=== PATIENT | male | born 1930 | race Caucasian/White ===

== ENCOUNTER 2017-10-01 08:35 | Emergency (ER) | payer OTHER, MEDICARE ==
--- NOTE | 2017-10-01 09:02 | ED ---
General Adult HPI - General Chief complaint: Urogenital Stated complaint: Blood in urine Time Seen by Provider: 10/01/17 08:55 Source: patient, RN notes reviewed Mode of arrival: wheelchair Limitations: no limitations - History of Present Illness Initial comments: Patient is an 87-year-old male who presents emergency room today with a chief complaint of hematuria. He does admit that he has seen signs of blood in his urine off and on since Thanksgiving of this past year. Patient states that he felt that he swallowed but more blood this morning and they were concerned. He denies any pain. He does admit that he is on Coumadin due to stents a pacemaker. Patient states he has been following up has had a previous surgery on the prostate in the past. States he is scheduled for an ultrasound tomorrow. Patient denies any recent fever, chills, shortness of breath, chest pain, back pain, abdominal pain, nausea or vomiting, numbness or tingling, dysuria, constipation or diarrhea, headaches or visual changes, or any other complaints. - Related Data Home Medications Medication Instructions Recorded Confirmed Aspirin 81 mg PO DAILY 05/25/14 10/01/17 Atenolol [Tenormin] 25 mg PO BID 05/25/14 10/01/17 Isosorbide Dinitrate 30 mg PO DAILY 05/25/14 10/01/17 Warfarin [Coumadin] 2.5 mg PO HS 05/25/14 10/01/17 Ferrous Gluconate 324 mg PO DAILY 10/01/17 10/01/17 Furosemide [Lasix] 40 mg PO BID 10/01/17 10/01/17 Lisinopril [Zestril] 2.5 mg PO DAILY 10/01/17 10/01/17 Nitroglycerin Sl Tabs [Nitrostat] 0.4 mg SUBLINGUAL Q5M PRN 10/01/17 10/01/17 Pravastatin Sodium [Pravachol] 40 mg PO HS 10/01/17 10/01/17 Previous Rx's Medication Instructions Recorded Ciprofloxacin HCl [Cipro] 500 mg PO Q12HR #14 day 10/01/17 Allergies Allergy/AdvReac Type Severity Reaction Status Date / Time acetaminophen [From Tylenol] Allergy Rash/Hives Verified 10/01/17 09:28 meperidine HCl [From Demerol] AdvReac Unknown Verified 10/01/17 09:28 Review of Systems ROS Statement: Those systems with pertinent positive or pertinent negative responses have been documented in the HPI. ROS Other: All systems not noted in ROS Statement are negative. Past Medical History Past Medical History: Myocardial Infarction ([place]), Prostate Disorder Additional Past Medical History / Comment(s): heart disease History of Any Multi-Drug Resistant Organisms: None Reported Past Surgical History: Pacemaker, Prostate Surgery Additional Past Surgical History / Comment(s): defibrillator Past Psychological History: No Psychological Hx Reported Smoking Status: Former smoker Past Alcohol Use History: None Reported Past Drug Use History: None Reported General Exam - General Exam Comments Initial Comments: General: The patient is awake and alert, in no distress, and does not appear acutely ill. Eye: Pupils are equal, round and reactive to light, extra-ocular movements are intact. No nystagmus. There is normal conjunctiva bilaterally. No signs of icterus. Ears, nose, mouth and throat: There are moist mucous membranes and no oral lesions. Neck: The neck is supple, there is no tenderness or JVD. Cardiovascular: There is a regular rate and rhythm. No murmur, rub or gallop is appreciated. Respiratory: Lungs are clear to auscultation, respirations are non-labored, breath sounds are equal. No wheezes, stridor, rales, or rhonchi. Gastrointestinal: Soft, non-distended, non-tender abdomen without masses or organomegaly noted. There is no rebound or guarding present. No CVA tenderness. Musculoskeletal: Normal ROM, no tenderness. Strength 5/5. Sensation intact. Pulses equal bilaterally 2+. Neurological: A&O x 3. CN II-XII intact, There are no obvious motor or sensory deficits. Coordination appears grossly intact. Speech is normal. Skin: Skin is warm and dry and no rashes or lesions are noted. Psychiatric: Cooperative, appropriate mood & affect, normal judgment. Limitations: no limitations Course Vital Signs 10/01/17 08:44 Temperature 97 F L Pulse Rate 71 Respiratory 20 Rate Blood Pressure 115/58 O2 Sat by Pulse 100 Oximetry Medical Decision Making - Medical Decision Making Patient reexamined at this time shows no signs of distress. Resting comfortably in the stretcher. His labs been reviewed. His INR is 2.6. Patient urinalysis does show greater than 182 red cells with 28 white cells. Patient no pain here in the emergency room no other symptoms other than hematuria. He'll be started on antibiotics. Advised that it may affect his INR. Advised follow-up to have repeat INRs. Advised to continue to follow up with his urologist. Advised return if symptoms increase or worsen. - Lab Data Result diagrams: 10/01/17 09:25 10/01/17 09:25 Lab Results 10/01/17 10/01/17 10/01/17 Range/Units 09:25 09:25 09:25 WBC 6.0 (3.8-10.6) k/uL RBC 3.76 L (4.30-5.90) m/uL Hgb 11.1 L (13.0-17.5) gm/dL Hct 35.7 L (39.0-53.0) % MCV 95.0 (80.0-100.0) fL MCH 29.5 (25.0-35.0) pg MCHC 31.1 (31.0-37.0) g/dL RDW 15.1 (11.5-15.5) % Plt Count 155 (150-450) k/uL Neutrophils % 69 % Lymphocytes % 20 % Monocytes % 8 % Eosinophils % 1 % Basophils % 1 % Neutrophils # 4.1 (1.3-7.7) k/uL Lymphocytes # 1.2 (1.0-4.8) k/uL Monocytes # 0.5 (0-1.0) k/uL Eosinophils # 0.1 (0-0.7) k/uL Basophils # 0.0 (0-0.2) k/uL Hypochromasia Moderate PT 23.3 H (9.0-12.0) sec INR 2.6 H (<1.2) APTT 32.4 H (22.0-30.0) sec Sodium 143 (137-145) mmol/L Potassium 3.8 (3.5-5.1) mmol/L Chloride 98 (98-107) mmol/L Carbon Dioxide 32 H (22-30) mmol/L Anion Gap 13 mmol/L BUN 40 H (9-20) mg/dL Creatinine 1.20 (0.66-1.25) mg/dL Est GFR (MDRD) Af Amer >60 (>60 ml/min/1.73 sqM) Est GFR (MDRD) Non-Af 58 (>60 ml/min/1.73 sqM) Glucose 90 (74-99) mg/dL Calcium 9.4 (8.4-10.2) mg/dL Total Bilirubin 0.7 (0.2-1.3) mg/dL AST 26 (17-59) U/L ALT 15 L (21-72) U/L Alkaline Phosphatase 104 (38-126) U/L Total Protein 6.9 (6.3-8.2) g/dL Albumin 3.8 (3.5-5.0) g/dL Urine Color Urine Appearance (Clear) Urine pH (5.0-8.0) Ur Specific [place] (1.001-1.035) Urine Protein (Negative) Urine Glucose (UA) (Negative) Urine Ketones (Negative) Urine Blood (Negative) Urine Nitrite (Negative) Urine Bilirubin (Negative) Urine Urobilinogen (<2.0) mg/dL Ur Leukocyte Esterase (Negative) Urine RBC (0-5) /hpf Urine WBC (0-5) /hpf Hyaline Casts (0-2) /lpf Urine Mucus (None) /hpf 10/01/17 Range/Units 10:21 WBC (3.8-10.6) k/uL RBC (4.30-5.90) m/uL Hgb (13.0-17.5) gm/dL Hct (39.0-53.0) % MCV (80.0-100.0) fL MCH (25.0-35.0) pg MCHC (31.0-37.0) g/dL RDW (11.5-15.5) % Plt Count (150-450) k/uL Neutrophils % % Lymphocytes % % Monocytes % % Eosinophils % % Basophils % % Neutrophils # (1.3-7.7) k/uL Lymphocytes # (1.0-4.8) k/uL Monocytes # (0-1.0) k/uL Eosinophils # (0-0.7) k/uL Basophils # (0-0.2) k/uL Hypochromasia PT (9.0-12.0) sec INR (<1.2) APTT (22.0-30.0) sec Sodium (137-145) mmol/L Potassium (3.5-5.1) mmol/L Chloride (98-107) mmol/L Carbon Dioxide (22-30) mmol/L Anion Gap mmol/L BUN (9-20) mg/dL Creatinine (0.66-1.25) mg/dL Est GFR (MDRD) Af Amer (>60 ml/min/1.73 sqM) Est GFR (MDRD) Non-Af (>60 ml/min/1.73 sqM) Glucose (74-99) mg/dL Calcium (8.4-10.2) mg/dL Total Bilirubin (0.2-1.3) mg/dL AST (17-59) U/L ALT (21-72) U/L Alkaline Phosphatase (38-126) U/L Total Protein (6.3-8.2) g/dL Albumin (3.5-5.0) g/dL Urine Color Yellow Urine Appearance Clear (Clear) Urine pH 6.5 (5.0-8.0) Ur Specific [place] 1.015 (1.001-1.035) Urine Protein 1+ H (Negative) Urine Glucose (UA) Negative (Negative) Urine Ketones Negative (Negative) Urine Blood Large H (Negative) Urine Nitrite Negative (Negative) Urine Bilirubin Negative (Negative) Urine Urobilinogen 6.0 (<2.0) mg/dL Ur Leukocyte Esterase Negative (Negative) Urine RBC >182 H (0-5) /hpf Urine WBC 28 H (0-5) /hpf Hyaline Casts 2 (0-2) /lpf Urine Mucus Rare H (None) /hpf Disposition Clinical Impression: Hematuria Disposition: HOME SELF-CARE Condition: Good Instructions: Urinary Tract Infection in Men (ED) Additional Instructions: Please use antibiotic as prescribed and be aware that it may affect her INR. Please have INR rechecked with the family doctor this coming week. Please follow-up with urologist/family doctor in the next 2 days of symptoms have not improved. Please return to emergency room if the symptoms increase or worsen or for any other concerns. Prescriptions: Ciprofloxacin HCl [Cipro] 500 mg PO Q12HR #14 day Referrals: Valentin Mir MD [Primary Care Provider] - 1-2 days Time of Disposition: 11:04
[2017-10-01 09:37] LABS: Basophils % (A) 1 %; Eosinophils # (A) 0.1 k/uL (0-0.7); Eosinophils % (A) 1 %; HCT 35.7 % (39.0-53.0); HGB 11.1 gm/dL (13.0-17.5); Hypochromasia Moderate; Lymphocytes # (A) 1.2 k/uL (1.0-4.8); Lymphocytes % (A) 20 %; MCH 29.5 pg (25.0-35.0); MCHC 31.1 g/dL (31.0-37.0); Mean Platelet Volume 8.2; Monocytes # (A) 0.5 k/uL (0-1.0); Monocytes % (A) 8 %; Neutrophils # (A) 4.1 k/uL (1.3-7.7); Neutrophils % (A) 69 %; Platelet Count 155 k/uL (150-450); RBC 3.76 m/uL (4.30-5.90); RDW 15.1 % (11.5-15.5)
[2017-10-01 09:47] LABS: INR 2.6 (<1.2); Partial Thromboplastin Time 32.4 sec (22.0-30.0); Prothrombin Time 23.3 sec (9.0-12.0)
[2017-10-01 09:54] LABS: ALT 15 U/L (21-72); AST 26 U/L (17-59); Albumin 3.8 g/dL (3.5-5.0); Alkaline Phosphatase 104 U/L (38-126); Anion Gap 13 mmol/L; Blood Urea Nitrogen 40 mg/dL (9-20); Calcium 9.4 mg/dL (8.4-10.2); Carbon Dioxide 32 mmol/L (22-30); Chloride 98 mmol/L (98-107); Glucose 90 mg/dL (74-99); Potassium 3.8 mmol/L (3.5-5.1); Sodium 143 mmol/L (137-145); Total Bilirubin 0.7 mg/dL (0.2-1.3); Total Protein 6.9 g/dL (6.3-8.2)
[2017-10-01 10:45] LABS: Appearance,Urine Clear (Clear); Bilirubin,Urine Negative (Negative); Blood,Urine Large (Negative); Color,Urine Yellow; Glucose,Urine (UA) Negative (Negative); Hyaline Casts,Urine 2 /lpf (0-2); Ketones,Urine Negative (Negative); Leukocyte Esterase,Urine Negative (Negative); Mucus,Urine Rare /hpf; Nitrite,Urine Negative (Negative); PH, Urine 6.5 (5.0-8.0); Protein,Urine 1+ (Negative); RBC,Urine >182 /hpf (0-5); Specific Gravity,Urine 1.015 (1.001-1.035); WBC,Urine 28 /hpf (0-5)
--- NOTE | 2017-10-01 10:45 | US ---
EXAMINATION TYPE: US kidneys/renal and bladder DATE OF EXAM: 10/01/2017 COMPARISON: NONE CLINICAL HISTORY: Pain. EXAM MEASUREMENTS: Right Kidney: 10.1 x 3.4 x 4.0 cm Left Kidney: 9.6 x 5.0 x 4.3 cm Technically difficult. Patient very thin with long ribcage and small intercostal spaces. Right Kidney: Inferior pole obscured by bowel gas Left Kidney: scanned posterior, large stone seen measuring 2.1 x 0.6 x 2.0, inferior pole obscured b y bowel gas Bladder: Not distended, not seen The study is limited by technical factors. There is a large 2.1 cm stone in the mid polar region of t he kidney there is no associated hydronephrosis. The bladder was not distended. IMPRESSION: LARGE, 2.1 CM STONE WITHIN THE MID POLAR REGION OF THE LEFT KIDNEY.
[2017-10-01 11:35] VITALS: BP 111/61; PULSE 60; RESP 16; TEMP 97.7
== END 2017-10-01 11:36 | disposition home or self-care (01) ==
LOC: EC 08:35
DX: R31.9 Hematuria, unspecified (principal); I25.2 Old myocardial infarction; Z87.438 Personal history of other diseases of male genital organs; Z98.890 Other specified postprocedural states; Z87.891 Personal history of nicotine dependence; Z79.01 Long term (current) use of anticoagulants; Z79.82 Long term (current) use of aspirin; Z79.899 Other long term (current) drug therapy; Z88.6 Allergy status to analgesic agent; Z88.5 Allergy status to narcotic agent; Z95.0 Presence of cardiac pacemaker
CPT/HCPCS: 36415; 76770; 80053; 81001; 85025; 85610; 85730; 87086; 99284

== ENCOUNTER → 2017-10-10 | Outpatient (CLI) | payer MEDICARE, OTHER ==
--- NOTE | 2017-10-10 12:07 | XR ---
EXAMINATION TYPE: XR KUB DATE OF EXAM: 10/10/2017 COMPARISON: 12/15/2010 HISTORY: Pain TECHNIQUE: One view abdominal series FINDINGS: The osseous structures are intact. The bowel gas pattern is nonspecific. Epicardial lead and cardiac lead noted. Findings suggestive of pulmonary fibrosis at the lung bases. Calcifications in the abdomen pelvis are likely vascular. Scoliosis and hypertrophic and degenerative change of the spine. Metallic appearing defects seen within the left abdomen is indeterminate. IMPRESSION: 1. Nonspecific abdomen. No obstruction. Metallic density in the left upper abdomen indeterminate. Th is appears stable from the CT scan of 12/17/2012 appears be related to the left kidney.
== END | disposition home or self-care (01) ==
LOC: RADXRMAIN 11:45
PROVIDERS: ATTEND Urology
DX: R19.02 Left upper quadrant abdominal swelling, mass and lump (principal)
CPT/HCPCS: 74018

== ENCOUNTER 2017-11-22 01:35 | Inpatient (IN) | payer MEDICARE, OTHER ==
--- NOTE | 2017-11-22 02:12 | ED ---
General Adult HPI - General Chief complaint: Shortness of Breath Stated complaint: DEBBIE Time Seen by Provider: 11/22/17 01:42 Source: patient, RN notes reviewed, old records reviewed Mode of arrival: wheelchair Limitations: no limitations - History of Present Illness Initial comments: 87-year-old male presenting with chief complaint of dyspnea. Patient states over the past 24 hours he has had progressive dyspnea and orthopnea. He is also had a cough which is productive of blood-tinged sputum. Denies fever states she's had some chills. Is also noted some mild swelling in his feet which is abnormal. Patient does complain of a sharp lateral chest pain which is been present for several years, he is has this pain intermittently. No central chest pain. No abdominal pain nausea vomiting diarrhea. No recent medication changes. - Related Data Home Medications Medication Instructions Recorded Confirmed Aspirin 81 mg PO DAILY 05/25/14 10/01/17 Atenolol [Tenormin] 25 mg PO BID 05/25/14 10/01/17 Isosorbide Dinitrate 30 mg PO DAILY 05/25/14 10/01/17 Warfarin [Coumadin] 2.5 mg PO HS 05/25/14 10/01/17 Ferrous Gluconate 324 mg PO DAILY 10/01/17 10/01/17 Furosemide [Lasix] 40 mg PO BID 10/01/17 10/01/17 Lisinopril [Zestril] 2.5 mg PO DAILY 10/01/17 10/01/17 Nitroglycerin Sl Tabs [Nitrostat] 0.4 mg SUBLINGUAL Q5M PRN 10/01/17 10/01/17 Pravastatin Sodium [Pravachol] 40 mg PO HS 10/01/17 10/01/17 Previous Rx's Medication Instructions Recorded Ciprofloxacin HCl [Cipro] 500 mg PO Q12HR #14 day 10/01/17 Allergies Allergy/AdvReac Type Severity Reaction Status Date / Time acetaminophen [From Tylenol] Allergy Rash/Hives Verified 11/22/17 01:48 meperidine HCl [From Demerol] AdvReac Unknown Verified 11/22/17 01:48 Review of Systems ROS Statement: Those systems with pertinent positive or pertinent negative responses have been documented in the HPI. ROS Other: All systems not noted in ROS Statement are negative. Past Medical History Past Medical History: Myocardial Infarction ([place]), Prostate Disorder Additional Past Medical History / Comment(s): heart disease History of Any Multi-Drug Resistant Organisms: None Reported Past Surgical History: Pacemaker, Prostate Surgery Additional Past Surgical History / Comment(s): defibrillator Past Psychological History: No Psychological Hx Reported Smoking Status: Former smoker Past Alcohol Use History: None Reported Past Drug Use History: None Reported General Exam Limitations: no limitations General appearance: alert, in no apparent distress, cachectic Head exam: Present: atraumatic, normocephalic Eye exam: Present: normal appearance, PERRL ENT exam: Present: normal exam Neck exam: Present: normal inspection. Absent: tenderness, meningismus Respiratory exam: Present: rales, decreased breath sounds Cardiovascular Exam: Present: regular rate, irregular rhythm Extremities exam: Present: normal inspection, normal capillary refill, pedal edema (trace) Neurological exam: Present: alert, oriented X3, CN II-XII intact. Absent: motor sensory deficit Psychiatric exam: Present: normal affect, normal mood Skin exam: Present: warm, dry, intact. Absent: cyanosis, diaphoretic Course Vital Signs 11/22/17 01:43 Temperature 97.0 F L Pulse Rate 82 Respiratory 22 Rate Blood Pressure 128/69 O2 Sat by Pulse 97 Oximetry EKG Findings - EKG Comments: EKG Findings:: EKG: Atrial fibrillation with occasional ventricular pacing, left axis deviation, right bundle branch block, ventricular rate of 79, QRS duration 154, QTC 548. No ST segment elevation Medical Decision Making - Medical Decision Making 87-year-old male presenting with 24 hours of worsening dyspnea. Patient has had cough which is productive of pink sputum. On exam patient has bilateral Rales. Laboratory studies reveal white blood cell count 10.2 which is normal, hemoglobin is 10.8 which appear stable for this patient. Potassium 3.4 which is replaced. Troponin is 0.032, BMP 4900. Lactic acid 3.7, this is secondary to congestive heart failure and hypoxia. Chest x-ray shows bilateral pulmonary edema with pleural effusion. Case discussed with the patient's primary care physician Dr. Mir, he will be admitted for further management of congestive heart failure exacerbation. Echo pending - Lab Data Result diagrams: 11/22/17 01:57 11/22/17 01:56 Lab Results 03/21/18 03/21/18 03/21/18 Range/Units 01:56 01:56 01:57 WBC 10.2 (3.8-10.6) k/uL RBC 3.80 L (4.30-5.90) m/uL Hgb 10.8 L (13.0-17.5) gm/dL Hct 34.5 L (39.0-53.0) % MCV 90.7 (80.0-100.0) fL MCH 28.4 (25.0-35.0) pg MCHC 31.3 (31.0-37.0) g/dL RDW 14.2 (11.5-15.5) % Plt Count 202 (150-450) k/uL Neutrophils % 72 % Lymphocytes % 16 % Monocytes % 6 % Eosinophils % 3 % Basophils % 1 % Neutrophils # 7.3 (1.3-7.7) k/uL Lymphocytes # 1.7 (1.0-4.8) k/uL Monocytes # 0.6 (0-1.0) k/uL Eosinophils # 0.3 (0-0.7) k/uL Basophils # 0.1 (0-0.2) k/uL Hypochromasia Slight PT (9.0-12.0) sec INR (<1.2) APTT (22.0-30.0) sec Sodium 145 (137-145) mmol/L Potassium 3.4 L (3.5-5.1) mmol/L Chloride 103 (98-107) mmol/L Carbon Dioxide 29 (22-30) mmol/L Anion Gap 13 mmol/L BUN 39 H (9-20) mg/dL Creatinine 1.20 (0.66-1.25) mg/dL Est GFR (CKD-EPI)AfAm 64 (>60 ml/min/1.73 sqM) Est GFR (CKD-EPI)NonAf 55 (>60 ml/min/1.73 sqM) Glucose 102 H (74-99) mg/dL Plasma Lactic Acid Srinivas (0.7-2.0) mmol/L Calcium 9.3 (8.4-10.2) mg/dL Total Bilirubin 1.2 (0.2-1.3) mg/dL AST 67 H (17-59) U/L ALT 42 (21-72) U/L Alkaline Phosphatase 121 (38-126) U/L Total Creatine Kinase 90 (55-170) U/L CK-MB (CK-2) 0.9 (0.0-2.4) ng/mL CK-MB (CK-2) Rel Index 1.0 Troponin I 0.032 (0.000-0.034) ng/mL NT-Pro-B Natriuret Pep pg/mL Total Protein 6.7 (6.3-8.2) g/dL Albumin 3.6 (3.5-5.0) g/dL Influenza Type A RNA (Not Detectd) Influenza Type B (PCR) (Not Detectd) 11/22/17 11/22/17 11/22/17 Range/Units 01:57 01:57 01:57 WBC (3.8-10.6) k/uL RBC (4.30-5.90) m/uL Hgb (13.0-17.5) gm/dL Hct (39.0-53.0) % MCV (80.0-100.0) fL MCH (25.0-35.0) pg MCHC (31.0-37.0) g/dL RDW (11.5-15.5) % Plt Count (150-450) k/uL Neutrophils % % Lymphocytes % % Monocytes % % Eosinophils % % Basophils % % Neutrophils # (1.3-7.7) k/uL Lymphocytes # (1.0-4.8) k/uL Monocytes # (0-1.0) k/uL Eosinophils # (0-0.7) k/uL Basophils # (0-0.2) k/uL Hypochromasia PT 16.6 H (9.0-12.0) sec INR 1.8 H (<1.2) APTT 28.5 (22.0-30.0) sec Sodium (137-145) mmol/L Potassium (3.5-5.1) mmol/L Chloride (98-107) mmol/L Carbon Dioxide (22-30) mmol/L Anion Gap mmol/L BUN (9-20) mg/dL Creatinine (0.66-1.25) mg/dL Est GFR (CKD-EPI)AfAm (>60 ml/min/1.73 sqM) Est GFR (CKD-EPI)NonAf (>60 ml/min/1.73 sqM) Glucose (74-99) mg/dL Plasma Lactic Acid Srinivas 3.7 H* (0.7-2.0) mmol/L Calcium (8.4-10.2) mg/dL Total Bilirubin (0.2-1.3) mg/dL AST (17-59) U/L ALT (21-72) U/L Alkaline Phosphatase (38-126) U/L Total Creatine Kinase (55-170) U/L CK-MB (CK-2) (0.0-2.4) ng/mL CK-MB (CK-2) Rel Index Troponin I (0.000-0.034) ng/mL NT-Pro-B Natriuret Pep 4910 pg/mL Total Protein (6.3-8.2) g/dL Albumin (3.5-5.0) g/dL Influenza Type A RNA (Not Detectd) Influenza Type B (PCR) (Not Detectd) 11/22/17 Range/Units 02:21 WBC (3.8-10.6) k/uL RBC (4.30-5.90) m/uL Hgb (13.0-17.5) gm/dL Hct (39.0-53.0) % MCV (80.0-100.0) fL MCH (25.0-35.0) pg MCHC (31.0-37.0) g/dL RDW (11.5-15.5) % Plt Count (150-450) k/uL Neutrophils % % Lymphocytes % % Monocytes % % Eosinophils % % Basophils % % Neutrophils # (1.3-7.7) k/uL Lymphocytes # (1.0-4.8) k/uL Monocytes # (0-1.0) k/uL Eosinophils # (0-0.7) k/uL Basophils # (0-0.2) k/uL Hypochromasia PT (9.0-12.0) sec INR (<1.2) APTT (22.0-30.0) sec Sodium (137-145) mmol/L Potassium (3.5-5.1) mmol/L Chloride (98-107) mmol/L Carbon Dioxide (22-30) mmol/L Anion Gap mmol/L BUN (9-20) mg/dL Creatinine (0.66-1.25) mg/dL Est GFR (CKD-EPI)AfAm (>60 ml/min/1.73 sqM) Est GFR (CKD-EPI)NonAf (>60 ml/min/1.73 sqM) Glucose (74-99) mg/dL Plasma Lactic Acid Srinivas (0.7-2.0) mmol/L Calcium (8.4-10.2) mg/dL Total Bilirubin (0.2-1.3) mg/dL AST (17-59) U/L ALT (21-72) U/L Alkaline Phosphatase (38-126) U/L Total Creatine Kinase (55-170) U/L CK-MB (CK-2) (0.0-2.4) ng/mL CK-MB (CK-2) Rel Index Troponin I (0.000-0.034) ng/mL NT-Pro-B Natriuret Pep pg/mL Total Protein (6.3-8.2) g/dL Albumin (3.5-5.0) g/dL Influenza Type A RNA Not Detected (Not Detectd) Influenza Type B (PCR) Not Detected (Not Detectd) Disposition Clinical Impression: Congestive heart failure Disposition: ADMITTED IP TO THIS HOSP Condition: Stable Referrals: Valentin Mir MD [Primary Care Provider] - 1-2 days Decision to Admit Reason: Admit from EC Decision Date: 11/22/17 Decision Time: 03:32
[2017-11-22 02:16] LABS: Albumin 3.6 g/dL (3.5-5.0); Calcium 9.3 mg/dL (8.4-10.2); Potassium 3.4 mmol/L (3.5-5.1); Total Bilirubin 1.2 mg/dL (0.2-1.3); Total Protein 6.7 g/dL (6.3-8.2)
[2017-11-22 02:38] LABS: Basophils # (A) 0.1 k/uL (0-0.2); Basophils % (A) 1 %; Eosinophils # (A) 0.3 k/uL (0-0.7); Eosinophils % (A) 3 %; HCT 34.5 % (39.0-53.0); HGB 10.8 gm/dL (13.0-17.5); Hypochromasia Slight; Lymphocytes # (A) 1.7 k/uL (1.0-4.8); Lymphocytes % (A) 16 %; MCH 28.4 pg (25.0-35.0); MCHC 31.3 g/dL (31.0-37.0); MCV 90.7 fL (80.0-100.0); Mean Platelet Volume 8.3; Monocytes # (A) 0.6 k/uL (0-1.0); Monocytes % (A) 6 %; Neutrophils # (A) 7.3 k/uL (1.3-7.7); Neutrophils % (A) 72 %; Platelet Count 202 k/uL (150-450); RDW 14.2 % (11.5-15.5); WBC 10.2 k/uL (3.8-10.6)
[2017-11-22 02:43] LABS: INR 1.8 (<1.2); Partial Thromboplastin Time 28.5 sec (22.0-30.0); Prothrombin Time 16.6 sec (9.0-12.0)
[2017-11-22 02:45] LABS: Creatine Kinase MB 0.9 ng/mL (0.0-2.4); Troponin I 0.032 ng/mL (0.000-0.034)
--- NOTE | 2017-11-22 02:55 | XR ---
EXAMINATION TYPE: XR chest 2V DATE OF EXAM: 11/22/2017 COMPARISON: 05/25/2014 HISTORY: Difficulty breathing TECHNIQUE: Frontal and lateral views of the chest are obtained. FINDINGS: There is pulmonary interstitial and alveolar edema. Heart is enlarged. There is a left axi llary pacemaker with the lead tips in the right ventricle. There are sternal wires. There are chest l [place]. There is mild blunting of costophrenic angles. IMPRESSION: Moderate congestive heart failure and pleural effusions. This is mostly new compared to old exam.
[2017-11-22] MEDS ORDERED: POTASSIUM CHLORIDE ER 20 MEQ TAB.ER PO STA (03:07)
[2017-11-22] MEDS ORDERED: FUROSEMIDE 10 MG/ML 4 ML VIAL IV STA (03:17)
[2017-11-22] MEDS ORDERED: NALOXONE 0.4 MG/ML 1 ML VIAL IV PRN (03:26)
[2017-11-22] MEDS: FERROUS SULFATE 325 MG TAB PO SCH (08:40)
[2017-11-22] MEDS: FUROSEMIDE 10 MG/ML 4 ML VIAL IV SCH ×2 (08:40→19:54)
[2017-11-22] MEDS: ASPIRIN 81 MG PO SCH (08:40)
[2017-11-22] MEDS: ATENOLOL 25 MG TAB PO SCH ×2 (08:40→19:54)
--- NOTE | 2017-11-22 10:18 | ECHOF ---
Referral Reason:CHF MEASUREMENTS -------- HEIGHT: 177.8 cm WEIGHT: 59.9 kg BP: 132/58 RVIDd: 2.1 cm (< 3.3) IVSd: 1.0 cm (0.6 - 1.1) LVIDd: 4.8 cm (3.9 - 5.3) LVPWd: 1.2 cm (0.6 - 1.1) IVSs: 1.4 cm LVIDs: 4.1 cm LVPWs: 1.5 cm LA Diam: 4.0 cm (2.7 - 3.8) LAESV Index (A-L): 33.46 ml/m Ao Diam: 3.6 cm (2.0 - 3.7) AV Cusp: 1.9 cm (1.5 - 2.6) MV EXCURSION: 12.972 mm (> 18.000) MV EF SLOPE: 48 mm/s (70 - 150) EPSS: 2.0 cm MV E Zafar: 1.22 m/s MV DecT: 147 ms MV A Zafar: 0.41 m/s MV E/A Ratio: 2.97 RAP: 5.00 mmHg RVSP: 47.82 mmHg FINDINGS -------- This was a technically adequate study. The left ventricular size is normal. There is borderline concentric left ventricular hypertrophy. Overall left ventricular systolic function is moderately impaired with, an EF between 35 - 40 %. The right ventricle is normal in size and function. LA is midly dilated 29-33ml/m2. The right atrium is normal in size. There is mild aortic valve sclerosis. There is mild aortic regurgitation. Gerdtjtt-ce-hslife mitral regurgitation is present. Mild tricuspid regurgitation present. There is moderate pulmonary hypertension. Trace/mild (physiologic) pulmonic regurgitation. The aortic root size is normal. Normal inferior vena cava with normal inspiratory collapse consistent with estimated right atrial pre ssure of 5 mmHg. There is no pericardial effusion. CONCLUSIONS -------- 1. This was a technically adequate study. 2. There is borderline concentric left ventricular hypertrophy. 3. Overall left ventricular systolic function is moderately impaired with, an EF between 35 - 40 %. 4. The right ventricle is normal in size and function. 5. LA is midly dilated 29-33ml/m2. 6. The right atrium is normal in size. 7. There is mild aortic valve sclerosis. 8. There is mild aortic regurgitation. 9. Fhzqbcqb-sl-efsvsk mitral regurgitation is present. 10. Mild tricuspid regurgitation present. 11. There is moderate pulmonary hypertension. 12. Trace/mild (physiologic) pulmonic regurgitation. 13. The aortic root size is normal. 14. Normal inferior vena cava with normal inspiratory collapse consistent with estimated right atrial pressure of 5 mmHg. 15. There is no pericardial effusion. HEPATOLOGIST: Kellee Sim RDCS
--- NOTE | 2017-11-22 10:30 | CONS ---
KARI Wilson is an 87-year-old gentleman with history of coronary artery disease, status post CABG, hypertension, dyslipidemia, chronic atrial fibrillation, status post AICD, who presents to hospital complaining of shortness of breath. This started yesterday and was getting progressively worse, moderate to severe intensity. Initial chest x-ray showed pulmonary edema and pleural effusions. BNP was elevated at 4900 due to which he is admitted to hospital. At the time of my evaluation, patient is feeling much better. He already received IV Lasix with significant improvement in his symptoms. PAST MEDICAL HISTORY: Past medical history is significant for chronic atrial fibrillation, dyslipidemia, hypertension, CAD, status post CABG, ischemic cardiomyopathy, status post AICD. CURRENT MEDICATIONS: Current medications include Coumadin 2.5 mg daily, Pravachol 40 q. daily, sublingual nitro, Zestril 2.5 q. daily, Imdur 30 q. daily, Lasix 40 b.i.d., Tenormin 25 b.i.d., aspirin. ALLERGIES: Allergic to DEMEROL and TYLENOL. FAMILY HISTORY: Family history is negative for premature coronary artery disease. SOCIAL HISTORY: Negative for smoking, EtOH abuse or drug abuse. REVIEW OF SYSTEMS: HEENT is unremarkable. CARDIAC: As described above. RESPIRATORY: As described above. GI: Negative. GENITOURINARY: Negative. ALLERGY/IMMUNOLOGY: Negative. SKIN: Negative. MUSCULOSKELETAL: Significant for arthritis. PSYCHOSOCIAL: Negative. ENDOCRINE: Negative. HEMATOLOGIC: Negative. DERM: Negative. CONSTITUTIONAL: Negative. ONCOLOGICAL: Negative. Rest of the system review is not relevant. EKG shows paced rhythm. LABS: Labs show a hemoglobin of 10.8. INR is 1.8. Creatinine is 1.2. Potassium is 3.4. BNP is elevated at 4910. ASSESSMENT: 1. Acute exacerbation of chronic systolic heart failure. 2. Coronary artery disease, status post coronary artery bypass grafting. 3. Ischemic cardiomyopathy status post automated implantable cardioverter- defibrillator. 4. Chronic atrial fibrillation. PLAN: We will treat the patient with IV Lasix, beta blockers. Continue the Coumadin to maintain an INR of 2 to 2.5. Continue the aspirin. Resume the Zestril that he was on. MMODL / IJN: [id number] /
[2017-11-22] MEDS: LISINOPRIL 2.5 MG TAB PO SCH (11:02)
[2017-11-22 11:05] LABS: Magnesium 2.1 mg/dL (1.6-2.3)
[2017-11-22] MEDS ORDERED: WARFARIN 2.5 MG TAB PO SCH (18:00)
--- NOTE | 2017-11-22 19:03 | HP ---
HISTORY AND PHYSICAL CHIEF COMPLAINT: Shortness of breath. HISTORY OF PRESENT ILLNESS: This elderly gentleman, 87 years of age, presented to the emergency room with complaints of shortness of breath. The patient said the symptoms had worsened over the past 24 hours; however, for the past week or so he was noticing increasing dyspnea on exertion; for example, going to the mailbox. He also has noticed some increased orthopnea. The patient has some associated cough but no fever or chills. Did not feel symptoms were related to any cough or congestion. The patient denied any anginal symptoms. He does get a sharp jab in the chest on the left side periodically; otherwise no other associated symptoms. The patient has had a previous history of myocardial infarction with residual ischemic cardiomyopathy; in fact, he also has an AICD in place. The patient's infarction was back in 2002. The patient has no history of any hypertension, lung disease, liver disease, kidney disease, ulcers. No history of any TB, hepatitis, rheumatic fever. He has the history of myocardial infarction. No history of any CVA. He does have some degenerative arthritis. The patient also has atrial fibrillation, at present controlled. Previous history of malignancy with colon cancer back in 2012, also prostate carcinoma, for which he has had some radiation. The patient also has been noted recently to have nephrolithiasis with a 2.1 cm size kidney stone in the left kidney. He has seen the urologist but recommended observation, as he has no symptoms. PAST SURGICAL HISTORY: 1. Bilateral inguinal herniorrhaphy. 2. Right knee I&D for an infection. 3. Left elbow and left chest shrapnel injuries. The patient has a left elbow deformity. 4. CABG in 2000. 5. He has had a partial colectomy. 6. Previous prostate biopsies. PERSONAL HISTORY: Nonsmoker at present. Quit smoking about 50 years ago; had smoked 3 packs per day for about 15 years. ALLERGIES: NONE. MEDICATIONS AT PRESENT: 1. Coumadin 2.5 mg daily. 2. Pravachol 40 mg daily. 3. Nitroglycerin sublingually p.r.n. 4. Zestril 2.5 mg daily. 5. Imdur 30 mg daily. 6. Lasix 40 mg b.i.d. 7. Iron 324 mg daily. 8. Atenolol 25 mg b.i.d. 9. Aspirin 81 mg daily. Of note is that the patient, according to his , does miss some Lasix dosages. SOCIAL HISTORY: Patient is , lives with his son and spouse. The son has some handicap. FAMILY MEDICAL HISTORY: Father in his 80s with NH and ASHD. Mother at 56 of myocardial infarction. Patient has 7 brothers: One of carcinoma of the lung at age 72; another one at the age of 41 of myocardial infarction. One brother had a history of COPD, . His youngest brother has had a previous CVA with full recovery. The brother next to him is 2 years now. He had a history of dementia, coronary artery disease. The patient had 4 sisters, all . They all in childhood. The patient had 4 children. One son at age of 41 of myocardial infarction, one son with a history of VSD and cerebral CVA 48 years of age. The patient has 2 daughters in good health. REVIEW OF SYSTEMS: NEURO: Denies any headaches, dizziness. No double vision or blurred vision. No symptoms of TIA or syncope or seizures. PSYCH: Denies any anxiety, depression. CARDIAC: Denies angina. Does have some occasional sharp jabbing chest pain. No palpitations. The patient does have a history of paroxysmal atrial fibrillation. Present complaint of shortness of breath, orthopnea, PND. RESPIRATORY: Mild cough. No hemoptysis. GI: No nausea, vomiting, abdominal pain, diarrhea, constipation, hematochezia, melena. : No symptoms of dysuria, hematuria, urgency, frequency. EXTREMITIES: Denies pain, edema. CONSTITUTIONAL: No fever, chills. PHYSICAL EXAMINATION: Pleasant gentleman, at present in no distress. VITAL SIGNS: Temperature of 97.6, pulse 69, respirations 16, blood pressure 120/61, pulse ox of 99% on 3 L. HEENT: Normocephalic, 1+ JVD. Pupils are reactive. Nostrils clear. Oral cavity is moist. Neck reveals no carotid bruits or thyromegaly. 1+ JVD. Chest examination is clear to percussion with mild decreased air flow at the bases with occasional crackles. CARDIAC: Distant heart sounds S1, S2 with no gallop. Systolic murmur 2/6, apex radiating to the axilla. ABDOMEN: Soft. No palpable masses. Bowel sounds normal. No organomegaly. No abdominal bruits. EXTREMITIES: No edema. Good pulses, upper extremities. Mild decreased pedal pulses. Neurologically awake, alert, oriented x3 with well-coordinated movements except for left upper extremity. However, he has had a previous injury and has some decreased range of motion. LABORATORY ASSESSMENT: Chest x-ray which revealed pulmonary edema changes. BNP is elevated. EKG revealed right bundle branch block with nonspecific ST changes. Rhythm is atrial fibrillation. Hemoglobin was 10.8, white count 10.2, INR 1.8, potassium 3.4, BUN 39, creatinine 1.2. Plasma lactic acid was 3.7 down to normal. Troponin 0.032. BNP 4910. Influenza was negative. ASSESSMENT: 1. 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 2. Stable coronary artery disease. 3. Chronic atrial fibrillation, rate controlled. 4. Mitral regurgitation. 5. Chronic anemia. 6. Anticoagulated status. 7. History of carcinoma of the colon. 8. History of carcinoma of the prostate, treated. 9. Nephrolithiasis. PLAN: Continue present medical regimen. The patient is on diuretic regimen. The patient is already feeling better with some diuresis. Prognosis remains guarded. Condition discussed with the patient's spouse. The patient now actually does not follow with me here; he follows at the [facility]. The patient was educated regarding management of CHF symptoms and classical orthopnea and progressive dyspnea on exertion. If the symptoms occur, patient should contact and may just require some additional diuresis as an outpatient. This was explained to his spouse, who understands this. MMODL / IJN: [id number] /
[2017-11-22] MEDS ORDERED: PRAVASTATIN SODIUM 40 MG TAB PO SCH (21:00)
[2017-11-22 23:23] VITALS: RESP 17
[2017-11-23 06:11] LABS: Basophils % (A) 0 %; Eosinophils % (A) 0 %; Lymphocytes # (A) 0.8 k/uL (1.0-4.8); Lymphocytes % (A) 10 %; MCH 28.4 pg (25.0-35.0); MCHC 32.2 g/dL (31.0-37.0); MCV 88.3 fL (80.0-100.0); Monocytes # (A) 0.7 k/uL (0-1.0); Monocytes % (A) 9 %; Neutrophils # (A) 6.4 k/uL (1.3-7.7); Neutrophils % (A) 79 %; Platelet Count 170 k/uL (150-450); RBC 3.51 m/uL (4.30-5.90); RDW 14.3 % (11.5-15.5); WBC 8.1 k/uL (3.8-10.6)
[2017-11-23 06:33] LABS: Calcium 8.7 mg/dL (8.4-10.2); Potassium 3.4 mmol/L (3.5-5.1)
[2017-11-23] MEDS: LISINOPRIL 2.5 MG TAB PO SCH (08:33)
[2017-11-23] MEDS: ATENOLOL 25 MG TAB PO SCH (08:33)
[2017-11-23] MEDS: FERROUS SULFATE 325 MG TAB PO SCH (08:33)
[2017-11-23] MEDS: ASPIRIN 81 MG PO SCH (08:33)
[2017-11-23] MEDS: FUROSEMIDE 10 MG/ML 4 ML VIAL IV SCH (08:33)
[2017-11-23 08:42] VITALS: BP 110/50; PULSE 66; TEMP 97.8
[2017-11-23] MEDS: POTASSIUM CHLORIDE ER 20 MEQ TAB.ER PO SCH ×2 (10:25→11:38)
[2017-11-23] MEDS ORDERED: POTASSIUM CHLORIDE ER 20 MEQ TAB.ER PO SCH (10:30)
[2017-11-23 11:38] VITALS: BMI 16.0
--- NOTE | 2017-11-23 12:43 | P.PN ---
Subjective Progress Note Date: 11/23/17 This is an 87-year-old gentleman with known history of coronary artery disease and prior bypass surgery, hypertension, hyperlipidemia, chronic persistent atrial fibrillation, prior AICD implantation who presented to the hospital with symptoms of progressively worsening shortness of breath. BNP level was 4900, chest x-ray revealed congestive cardiac failure and patient was initiated on IV Lasix. Patient diuresed well through the night last night, his weight is down today. Potassium 3.4 this morning. Blood pressure 110/50 with a heart rate in the 60s, 95% on room air. Afebrile. White blood cell count 8.1 , hemoglobin 10.0, platelet count 170. Sodium 139, potassium 3.4, BUN 34, creatinine 1.0. Objective - Vital Signs Vital signs: Vital Signs Temp 97.8 F 11/23/17 08:39 Pulse 66 11/23/17 08:39 Resp 17 11/23/17 08:39 BP 110/50 11/23/17 08:39 Pulse Ox 95 11/23/17 08:39 Intake & Output 11/22/17 11/23/17 11/23/17 18:59 06:59 18:59 Intake Total 420 200 480 Output Total 470 650 Balance -50 -450 480 Weight 60 kg 50.6 kg 50.6 kg Intake: Oral 420 200 480 Output: Urine 470 650 Other: Voiding Method Urinal Urinal Urinal Diaper Diaper # Voids 1 1 # Bowel Movements 0 - Exam PHYSICAL EXAMINATION: HEENT: Head is atraumatic, normocephalic. Pupils equal, round. Neck is supple. There is no elevated jugular venous pressure. HEART EXAMINATION: Heart S1 and S2 systolic murmur is heard. CHEST EXAMINATION: Lungs are clear with mild diminished air entry to the bases. ABDOMEN: Soft, nontender. Bowel sounds are heard. No organomegaly noted. EXTREMITIES: 1+ peripheral pulses with no evidence of peripheral edema and no calf tenderness noted. NEUROLOGIC patient is awake, alert and oriented -3. . - Labs CBC & Chem 7: 11/23/17 05:40 11/23/17 05:40 Labs: Abnormal Lab Results - Last 24 Hours (Table) 11/23/17 11/23/17 Range/Units 05:40 05:40 RBC 3.51 L (4.30-5.90) m/uL Hgb 10.0 L (13.0-17.5) gm/dL Hct 31.0 L (39.0-53.0) % Lymphocytes # 0.8 L (1.0-4.8) k/uL Potassium 3.4 L (3.5-5.1) mmol/L Chloride 97 L (98-107) mmol/L Carbon Dioxide 33 H (22-30) mmol/L BUN 34 H (9-20) mg/dL Glucose 101 H (74-99) mg/dL Microbiology - Last 24 Hours (Table) 11/22/17 01:51 Blood Culture - Preliminary Blood No Growth after 24 hours Assessment and Plan Plan: Assessment and plan #1 systolic congestive heart failure acute on chronic, echocardiogram with Doppler study was performed which revealed an ejection fraction of 35-40%, [id number] mitral regurgitation noted. #2 known history of coronary artery disease with prior bypass surgery, stable #3 chronic persistent atrial fibrillation #4 chronic anemia # 5 hyperlipidemia #6 history of colon and prostate cancer Plan We will discontinue the IV Lasix and start the patient on Lasix 60 mg one tablet by mouth twice a day. Continue beta lazarus, AVTAR inhibitor, statin, baby aspirin, Coumadin to maintain an INR in the range of 2-2.5. Follow-up appointment will be made in the office with Dr. Leigh Ann Silver post discharge. DNP note has been reviewed, I agree with a documented findings and plan of care. Patient was seen and examined.
[2017-11-23] MEDS ORDERED: FUROSEMIDE 20 MG TAB PO SCH (16:00)
== END 2017-11-23 12:49 | disposition home or self-care (01) | DRG 292 ==
LOC: EC 01:35 → 6SEL 03:26
PROVIDERS: ADMIT Internal Medicine; ATTEND Internal Medicine
DX: I11.0 Hypertensive heart disease with heart failure (principal); I48.1 Persistent atrial fibrillation; D64.9 Anemia, unspecified; I50.23 Acute on chronic systolic (congestive) heart failure; I25.5 Ischemic cardiomyopathy; I48.2 Chronic atrial fibrillation; I34.0 Nonrheumatic mitral (valve) insufficiency; N20.0 Calculus of kidney; E78.5 Hyperlipidemia, unspecified; I25.10 Atherosclerotic heart disease of native coronary artery without angina pectoris; I45.10 Unspecified right bundle-branch block; I25.2 Old myocardial infarction; M19.91 Primary osteoarthritis, unspecified site; Z79.01 Long term (current) use of anticoagulants; Z79.82 Long term (current) use of aspirin; Z79.899 Other long term (current) drug therapy; Z95.810 Presence of automatic (implantable) cardiac defibrillator; Z95.1 Presence of aortocoronary bypass graft; Z90.49 Acquired absence of other specified parts of digestive tract; Z85.038 Personal history of other malignant neoplasm of large intestine; Z87.891 Personal history of nicotine dependence; Z82.49 Family history of ischemic heart disease and other diseases of the circulatory system; Z85.46 Personal history of malignant neoplasm of prostate; Z88.6 Allergy status to analgesic agent; Z88.5 Allergy status to narcotic agent
CPT/HCPCS: 36415; 71046; 80048; 80053; 82550; 82553; 83605; 83735; 83880; 84132; 84484; 85025; 85610; 85730; 87040; 87502; 93005; 93306; 96374; 99285

== ENCOUNTER 2017-12-06 07:12 | Emergency (ER) | payer MEDICARE, OTHER ==
[2017-12-06 07:18] VITALS: RESP 18
[2017-12-06] MEDS ORDERED: ONDANSETRON 4 MG/2 ML VIAL IVP STA (07:53)
[2017-12-06] MEDS ORDERED: SODIUM CHLORIDE 0.9% 500 ML IV STA (07:53)
[2017-12-06] MEDS ORDERED: PANTOPRAZOLE 40 MG/10 ML VIAL IVP STA (07:53)
[2017-12-06] MEDS ORDERED: SODIUM CHLORIDE 0.9% 1,000 ML IV STA (07:53)
[2017-12-06 08:29] LABS: Basophils % (A) 0 %; Eosinophils # (A) 0.1 k/uL (0-0.7); Eosinophils % (A) 1 %; HCT 31.9 % (39.0-53.0); Lymphocytes % (A) 10 %; MCH 27.6 pg (25.0-35.0); MCHC 31.3 g/dL (31.0-37.0); MCV 88.2 fL (80.0-100.0); Mean Platelet Volume 6.9; Monocytes # (A) 0.4 k/uL (0-1.0); Monocytes % (A) 4 %; Neutrophils # (A) 7.6 k/uL (1.3-7.7); Neutrophils % (A) 83 %; Platelet Count 279 k/uL (150-450); RBC 3.62 m/uL (4.30-5.90); RDW 13.5 % (11.5-15.5); WBC 9.2 k/uL (3.8-10.6)
[2017-12-06 08:35] LABS: Albumin 3.1 g/dL (3.5-5.0); Calcium 8.9 mg/dL (8.4-10.2); Potassium 3.3 mmol/L (3.5-5.1); Total Bilirubin 0.6 mg/dL (0.2-1.3); Total Protein 6.2 g/dL (6.3-8.2)
[2017-12-06 08:39] LABS: INR 2.2 (<1.2); Partial Thromboplastin Time 33.9 sec (22.0-30.0); Prothrombin Time 19.7 sec (9.0-12.0)
[2017-12-06 09:04] LABS: Creatine Kinase MB 0.4 ng/mL (0.0-2.4); Troponin I 0.021 ng/mL (0.000-0.034)
--- NOTE | 2017-12-06 09:45 | ED ---
General Adult HPI - General Chief complaint: GI Bleed Stated complaint: Rectal Bleeding, weakness Time Seen by Provider: 12/06/17 07:40 Source: patient Mode of arrival: wheelchair Limitations: no limitations - History of Present Illness Initial comments: October 89 years old male comes in with his he thinks he been passing blood with the stool he is on a Coumadin and now think that there was some blood in the urine as well she said he is weak with the exertion he does have some shortness of breath ongoing denies any chest pain no pleuritic chest pain no abdominal pain no frequency urgency dysuria no symptoms of TIA or CVA. - Related Data Home Medications Medication Instructions Recorded Confirmed Aspirin 81 mg PO DAILY 05/25/14 11/22/17 Atenolol [Tenormin] 25 mg PO BID 05/25/14 11/22/17 Warfarin [Coumadin] 2.5 mg PO HS 05/25/14 11/22/17 Ferrous Gluconate 324 mg PO DAILY 10/01/17 11/22/17 Furosemide [Lasix] 40 mg PO BID 10/01/17 11/22/17 Lisinopril [Zestril] 2.5 mg PO DAILY 10/01/17 11/22/17 Nitroglycerin Sl Tabs [Nitrostat] 0.4 mg SUBLINGUAL Q5M PRN 10/01/17 11/22/17 Pravastatin Sodium [Pravachol] 40 mg PO HS 10/01/17 11/22/17 Isosorbide Mononitrate ER [Imdur] 30 mg PO DAILY 11/22/17 11/22/17 Previous Rx's Medication Instructions Recorded Lisinopril [Zestril] 2.5 mg PO DAILY tab 11/23/17 Allergies Allergy/AdvReac Type Severity Reaction Status Date / Time acetaminophen [From Tylenol] Allergy Rash/Hives Verified 12/06/17 07:19 meperidine HCl [From Demerol] Allergy Unknown Verified 12/06/17 07:19 Review of Systems ROS Statement: Those systems with pertinent positive or pertinent negative responses have been documented in the HPI. ROS Other: All systems not noted in ROS Statement are negative. Past Medical History Past Medical History: Cancer, Chest Pain / Angina, Heart Failure, Myocardial Infarction (NM), Prostate Disorder Additional Past Medical History / Comment(s): heart disease; kidney stones; prostate CA. heart cath with 3 stents Last Myocardial Infarction Date:: 2001 History of Any Multi-Drug Resistant Organisms: None Reported Past Surgical History: Heart Catheterization With Stent, Pacemaker, Prostate Surgery Additional Past Surgical History / Comment(s): defibrillator; 3 heart stents Past Anesthesia/Blood Transfusion Reactions: No Reported Reaction Date of Last Stent Placement:: 2001 Type of Cardiac Device: AICD Device Placement Date:: 10/22/2013 Past Psychological History: No Psychological Hx Reported Smoking Status: Former smoker Past Alcohol Use History: None Reported Past Drug Use History: None Reported - Past Family History Father Additional Family Medical History / Comment(s): "hardened arteries" Mother Family Medical History: Myocardial Infarction (NM) General Exam - General Exam Comments Initial Comments: General: The patient is awake and alert, in no distress, and does not appear acutely ill. Skin: Skin is warm and dry and no rashes or lesions are noted. Eye: Pupils are equal, round and reactive to light, extra-ocular movements are intact; there is normal conjunctiva bilaterally. Ears, nose, mouth and throat: There are moist mucous membranes and no oral lesions. Neck: The neck is supple, there is no tenderness or JVD. Cardiovascular: There is a regular rate and rhythm. No murmur, rub or gallop is appreciated. Respiratory: To auscultation bilateral, no wheezing no rhonchi no distress respiratory alaniz noticed Gastrointestinal: Soft, non-distended, non-tender abdomen without masses or organomegaly noted. There is no rebound or guarding present. Bowel sounds are unremarkable. Back: There is no tenderness to palpation in the midline. There is no obvious deformity. Musculoskeletal: Normal ROM, no tenderness, There is no pedal edema. There is no calf tenderness or swelling. No cords were appreciated. Neurological: CN II-XII intact, Cranial nerves III through XII are intact. There are no obvious motor or sensory deficits. Coordination appears grossly intact. Speech is normal. Psychiatric: Cooperative, appropriate mood & affect, normal judgment. Limitations: no limitations Course Vital Signs 12/06/17 12/06/17 07:16 08:19 Temperature 97.1 F L Pulse Rate 77 79 Respiratory 18 18 Rate Blood Pressure 122/58 114/58 O2 Sat by Pulse 95 100 Oximetry Patient reassessed, hemoglobin is exactly the same, blood is negative urine is still pending at this point INR is 2.2 chemistries LFTs renal functions are absolutely normal, noticed me as a blood pressure was bit low 1 1500 noticed his heart rate was. Heart rate around 5152 considering that I have decided to decrease the dose of his beta blockers might explain the patient that hemoglobin is same, blood has come back as negative and probably we need to decrease the dose of his blood pressure pill he is taking atenolol 25 mg twice daily Y advised him to take atenolol just once a day before going to bed hopefully they'll allow bump up his pulse rate to mid 60s and low 70s and her blood pressure will, 2 10/04/1932 which is fine for his age. They agreed that it and I wrote on a piece of paper that atenolol 25 mg just once a day instead of twice a day and they have a prescription of this Medical Decision Making - Lab Data Result diagrams: 12/06/17 08:00 12/06/17 08:00 Lab Results 12/06/17 12/06/17 12/06/17 Range/Units 08:00 08:00 08:00 WBC (3.8-10.6) k/uL RBC (4.30-5.90) m/uL Hgb (13.0-17.5) gm/dL Hct (39.0-53.0) % MCV (80.0-100.0) fL MCH (25.0-35.0) pg MCHC (31.0-37.0) g/dL RDW (11.5-15.5) % Plt Count (150-450) k/uL Neutrophils % % Lymphocytes % % Monocytes % % Eosinophils % % Basophils % % Neutrophils # (1.3-7.7) k/uL Lymphocytes # (1.0-4.8) k/uL Monocytes # (0-1.0) k/uL Eosinophils # (0-0.7) k/uL Basophils # (0-0.2) k/uL PT (9.0-12.0) sec INR (<1.2) APTT (22.0-30.0) sec Sodium 141 (137-145) mmol/L Potassium 3.3 L (3.5-5.1) mmol/L Chloride 94 L (98-107) mmol/L Carbon Dioxide 34 H (22-30) mmol/L Anion Gap 13 mmol/L BUN 26 H (9-20) mg/dL Creatinine 0.96 (0.66-1.25) mg/dL Est GFR (CKD-EPI)AfAm 84 (>60 ml/min/1.73 sqM) Est GFR (CKD-EPI)NonAf 72 (>60 ml/min/1.73 sqM) Glucose 141 H (74-99) mg/dL Plasma Lactic Acid Srinivas 2.0 (0.7-2.0) mmol/L Calcium 8.9 (8.4-10.2) mg/dL Total Bilirubin 0.6 (0.2-1.3) mg/dL AST 29 (17-59) U/L ALT 23 (21-72) U/L Alkaline Phosphatase 160 H (38-126) U/L Total Creatine Kinase (55-170) U/L CK-MB (CK-2) (0.0-2.4) ng/mL CK-MB (CK-2) Rel Index Troponin I (0.000-0.034) ng/mL Total Protein 6.2 L (6.3-8.2) g/dL Albumin 3.1 L (3.5-5.0) g/dL Lipase 107 (23-300) U/L Stool Occult Blood (Negative) Blood Type O Positive Blood Type Recheck No Antibody Screen NEGATIVE Spec Expiration Date 12/09/2017229912/06/17 12/06/17 12/06/17 Range/Units 08:00 08:00 08:00 WBC 9.2 (3.8-10.6) k/uL RBC 3.62 L (4.30-5.90) m/uL Hgb 10.0 L (13.0-17.5) gm/dL Hct 31.9 L (39.0-53.0) % MCV 88.2 (80.0-100.0) fL MCH 27.6 (25.0-35.0) pg MCHC 31.3 (31.0-37.0) g/dL RDW 13.5 (11.5-15.5) % Plt Count 279 (150-450) k/uL Neutrophils % 83 % Lymphocytes % 10 % Monocytes % 4 % Eosinophils % 1 % Basophils % 0 % Neutrophils # 7.6 (1.3-7.7) k/uL Lymphocytes # 1.0 (1.0-4.8) k/uL Monocytes # 0.4 (0-1.0) k/uL Eosinophils # 0.1 (0-0.7) k/uL Basophils # 0.0 (0-0.2) k/uL PT (9.0-12.0) sec INR (<1.2) APTT (22.0-30.0) sec Sodium (137-145) mmol/L Potassium (3.5-5.1) mmol/L Chloride (98-107) mmol/L Carbon Dioxide (22-30) mmol/L Anion Gap mmol/L BUN (9-20) mg/dL Creatinine (0.66-1.25) mg/dL Est GFR (CKD-EPI)AfAm (>60 ml/min/1.73 sqM) Est GFR (CKD-EPI)NonAf (>60 ml/min/1.73 sqM) Glucose (74-99) mg/dL Plasma Lactic Acid Srinivas (0.7-2.0) mmol/L Calcium (8.4-10.2) mg/dL Total Bilirubin (0.2-1.3) mg/dL AST (17-59) U/L ALT (21-72) U/L Alkaline Phosphatase (38-126) U/L Total Creatine Kinase 41 L (55-170) U/L CK-MB (CK-2) 0.4 (0.0-2.4) ng/mL CK-MB (CK-2) Rel Index 1.0 Troponin I 0.021 (0.000-0.034) ng/mL Total Protein (6.3-8.2) g/dL Albumin (3.5-5.0) g/dL Lipase (23-300) U/L Stool Occult Blood Negative (Negative) Blood Type Blood Type Recheck Antibody Screen Spec Expiration Date 12/06/17 Range/Units 08:00 WBC (3.8-10.6) k/uL RBC (4.30-5.90) m/uL Hgb (13.0-17.5) gm/dL Hct (39.0-53.0) % MCV (80.0-100.0) fL MCH (25.0-35.0) pg MCHC (31.0-37.0) g/dL RDW (11.5-15.5) % Plt Count (150-450) k/uL Neutrophils % % Lymphocytes % % Monocytes % % Eosinophils % % Basophils % % Neutrophils # (1.3-7.7) k/uL Lymphocytes # (1.0-4.8) k/uL Monocytes # (0-1.0) k/uL Eosinophils # (0-0.7) k/uL Basophils # (0-0.2) k/uL PT 19.7 H (9.0-12.0) sec INR 2.2 H (<1.2) APTT 33.9 H (22.0-30.0) sec Sodium (137-145) mmol/L Potassium (3.5-5.1) mmol/L Chloride (98-107) mmol/L Carbon Dioxide (22-30) mmol/L Anion Gap mmol/L BUN (9-20) mg/dL Creatinine (0.66-1.25) mg/dL Est GFR (CKD-EPI)AfAm (>60 ml/min/1.73 sqM) Est GFR (CKD-EPI)NonAf (>60 ml/min/1.73 sqM) Glucose (74-99) mg/dL Plasma Lactic Acid Srinivas (0.7-2.0) mmol/L Calcium (8.4-10.2) mg/dL Total Bilirubin (0.2-1.3) mg/dL AST (17-59) U/L ALT (21-72) U/L Alkaline Phosphatase (38-126) U/L Total Creatine Kinase (55-170) U/L CK-MB (CK-2) (0.0-2.4) ng/mL CK-MB (CK-2) Rel Index Troponin I (0.000-0.034) ng/mL Total Protein (6.3-8.2) g/dL Albumin (3.5-5.0) g/dL Lipase (23-300) U/L Stool Occult Blood (Negative) Blood Type Blood Type Recheck Antibody Screen Spec Expiration Date Disposition Clinical Impression: Weakness, Bradycardia, Hypotension Disposition: HOME SELF-CARE Condition: Good Instructions: Bradycardia (ED) Referrals: Valentin Mir MD [Primary Care Provider] - 1-2 days
[2017-12-06 10:02] LABS: Appearance,Urine Clear (Clear); Bilirubin,Urine Negative (Negative); Blood,Urine Moderate (Negative); Color,Urine Light Yellow; Glucose,Urine (UA) Negative (Negative); Ketones,Urine Negative (Negative); Leukocyte Esterase,Urine Negative (Negative); Mucus,Urine Rare /hpf; Nitrite,Urine Negative (Negative); Protein,Urine Negative (Negative); RBC,Urine 91 /hpf (0-5); Specific Gravity,Urine 1.008 (1.001-1.035); WBC,Urine 1 /hpf (0-5)
[2017-12-06] MEDS ORDERED: SODIUM CHLORIDE 0.9% 1,000 ML IV ONE (10:34)
[2017-12-06 10:43] VITALS: PULSE 54
[2017-12-06 11:01] VITALS: BP 105/58; TEMP 97.7
== END 2017-12-06 10:58 | disposition home or self-care (01) ==
LOC: EC 07:12
DX: I95.9 Hypotension, unspecified (principal); R00.1 Bradycardia, unspecified; R53.1 Weakness; R31.9 Hematuria, unspecified; I50.9 Heart failure, unspecified; I25.2 Old myocardial infarction; Z85.46 Personal history of malignant neoplasm of prostate; Z87.891 Personal history of nicotine dependence; Z79.01 Long term (current) use of anticoagulants; Z79.82 Long term (current) use of aspirin; Z79.899 Other long term (current) drug therapy; Z88.5 Allergy status to narcotic agent; Z88.6 Allergy status to analgesic agent
CPT/HCPCS: 36415; 86900; 86901; 80053; 82550; 82553; 83605; 83690; 84484; 85025; 85610; 85730; 86850; 82272; 81001; 99284; 96374; 96375; 96361 ×2; J2405; C9113

== ENCOUNTER 2018-01-08 08:31 | Inpatient (IN) | payer MEDICARE, OTHER ==
[2018-01-08] MEDS ORDERED: IBUPROFEN 600 MG TAB PO STA (09:20)
[2018-01-08] MEDS ORDERED: cefTRIAXone IN SWFI 1,000 MG/10 ML SYRINGE IVP STA (09:20)
--- NOTE | 2018-01-08 09:23 | ED ---
General Adult HPI - General Chief complaint: Upper Respiratory Infection Stated complaint: Chest cold Time Seen by Provider: 01/08/18 08:35 Source: patient, RN notes reviewed Mode of arrival: wheelchair Limitations: no limitations - History of Present Illness Initial comments: This is an 87-year-old male who presents emergency Department complaining of a cough shortness of breath and feeling chilled. Patient states he's had pneumonia in the past he believes he has again. Patient denies any chest pain or palpitations. Patient denies any abdominal pain. Patient denies any nausea vomiting or diarrhea. Patient denies any rashes or lesions. Patient denies headache patient denies numbness weakness. Patient denies lightheadedness dizziness or near syncopal episode. Patient denies any dysuria hematuria urinary frequency. - Related Data Home Medications Medication Instructions Recorded Confirmed Aspirin 81 mg PO DAILY 05/25/14 01/08/18 Atenolol [Tenormin] 25 mg PO DAILY 05/25/14 01/08/18 Warfarin [Coumadin] 2.5 mg PO SUMOTUWETHFR 05/25/14 01/08/18 Ferrous Gluconate 324 mg PO DAILY 10/01/17 01/08/18 Furosemide [Lasix] 40 mg PO BID 10/01/17 01/08/18 Nitroglycerin Sl Tabs [Nitrostat] 0.4 mg SUBLINGUAL Q5M PRN 10/01/17 01/08/18 Pravastatin Sodium [Pravachol] 40 mg PO HS 10/01/17 01/08/18 Isosorbide Mononitrate ER [Imdur] 30 mg PO DAILY 11/22/17 01/08/18 Previous Rx's Medication Instructions Recorded Lisinopril [Zestril] 2.5 mg PO DAILY tab 11/23/17 Allergies Allergy/AdvReac Type Severity Reaction Status Date / Time acetaminophen [From Tylenol] Allergy Rash/Hives Verified 01/08/18 09:20 meperidine HCl [From Demerol] Allergy Unknown Verified 01/08/18 09:20 Review of Systems ROS Statement: Those systems with pertinent positive or pertinent negative responses have been documented in the HPI. ROS Other: All systems not noted in ROS Statement are negative. Past Medical History Past Medical History: Cancer, Chest Pain / Angina, Heart Failure, Myocardial Infarction ([place]), Prostate Disorder Additional Past Medical History / Comment(s): heart disease; kidney stones; prostate CA. heart cath with 3 stents Last Myocardial Infarction Date:: 2001 History of Any Multi-Drug Resistant Organisms: None Reported Past Surgical History: Heart Catheterization With Stent, Pacemaker, Prostate Surgery Additional Past Surgical History / Comment(s): defibrillator; 3 heart stents Past Anesthesia/Blood Transfusion Reactions: No Reported Reaction Date of Last Stent Placement:: 2001 Type of Cardiac Device: AICD Device Placement Date:: 10/22/2013 Past Psychological History: No Psychological Hx Reported Smoking Status: Former smoker Past Alcohol Use History: None Reported Past Drug Use History: None Reported - Past Family History Father Additional Family Medical History / Comment(s): "hardened arteries" Mother Family Medical History: Myocardial Infarction ([place]) General Exam - General Exam Comments Initial Comments: GENERAL: Patient is well-developed and well-nourished. Patient is nontoxic and well- hydrated and is in mild distress. ENT: Neck is soft and supple. No significant lymphadenopathy is noted. Oropharynx is clear. Moist mucous membranes. Neck has full range of motion without eliciting any pain. EYES: The sclera were anicteric and conjunctiva were pink and moist. Extraocular movements were intact and pupils were equal round and reactive to light. Eyelids were unremarkable. PULMONARY: Patient has crackles in the left base. CARDIOVASCULAR: Patient is tachycardic. ABDOMEN: Soft and nontender with normal bowel sounds. No palpable organomegaly was noted. There is no palpable pulsatile mass. SKIN: Skin is clear with no lesions or rashes and otherwise unremarkable. NEUROLOGIC: Patient is alert and oriented x3. Cranial nerves II through XII are grossly intact. Motor and sensory are also intact. Normal speech, volume and content. Symmetrical smile. MUSCULOSKELETAL: Normal extremities with adequate strength and full range of motion. No lower extremity swelling or edema. No calf tenderness. LYMPHATICS: No significant lymphadenopathy is noted PSYCHIATRIC: Normal psychiatric evaluation. Normal interpersonal interactions appears functionally intact in deals appropriately with others. No signs of depression. No signs of anxiety. Limitations: no limitations Course Vital Signs 01/08/18 01/08/18 01/08/18 08:35 09:20 10:14 Temperature 99.5 F 101.3 F H Pulse Rate 115 H 80 Respiratory 22 18 Rate Blood Pressure 131/81 128/61 O2 Sat by Pulse 99 99 Oximetry 01/08/18 01/08/18 11:00 11:59 Temperature 100.3 F H Pulse Rate 76 62 Respiratory 18 16 Rate Blood Pressure 100/58 92/51 O2 Sat by Pulse 100 96 Oximetry Medical Decision Making - Medical Decision Making EKG shows atrial fibrillation at a rate of 70 bpm QRS is 1:30 for QT intervals 440 QTC is 501. Patient's EKG shows some T waves in the precordial leads V5 and V6 this was seen on an old EKG. No elevation was seen. Chest x-ray shows a left lower lobe pneumonia. I started the patient on Rocephin. Patient's lactic acid was also mildly elevated. I spoke with Dr. Mir he agreed to admit the patient admitted the patient I wrote admitting orders continued antibiotics on the floor. - Lab Data Result diagrams: 01/08/18 09:03 01/08/18 09:03 Lab Results 01/08/18 01/08/18 01/08/18 Range/Units 09:03 09:03 09:03 WBC 7.8 (3.8-10.6) k/uL RBC 3.63 L (4.30-5.90) m/uL Hgb 10.2 L (13.0-17.5) gm/dL Hct 31.4 L (39.0-53.0) % MCV 86.7 (80.0-100.0) fL MCH 28.2 (25.0-35.0) pg MCHC 32.5 (31.0-37.0) g/dL RDW 14.7 (11.5-15.5) % Plt Count 176 (150-450) k/uL Neutrophils % 78 % Lymphocytes % 12 % Monocytes % 5 % Eosinophils % 1 % Basophils % 0 % Neutrophils # 6.1 (1.3-7.7) k/uL Lymphocytes # 0.9 L (1.0-4.8) k/uL Monocytes # 0.4 (0-1.0) k/uL Eosinophils # 0.1 (0-0.7) k/uL Basophils # 0.0 (0-0.2) k/uL PT (9.0-12.0) sec INR (<1.2) APTT (22.0-30.0) sec Sodium 139 (137-145) mmol/L Potassium 3.8 (3.5-5.1) mmol/L Chloride 95 L (98-107) mmol/L Carbon Dioxide 29 (22-30) mmol/L Anion Gap 15 mmol/L BUN 27 H (9-20) mg/dL Creatinine 1.00 (0.66-1.25) mg/dL Est GFR (CKD-EPI)AfAm 79 (>60 ml/min/1.73 sqM) Est GFR (CKD-EPI)NonAf 68 (>60 ml/min/1.73 sqM) Glucose 100 H (74-99) mg/dL Plasma Lactic Acid Srinivas (0.7-2.0) mmol/L Calcium 8.7 (8.4-10.2) mg/dL Total Bilirubin 1.6 H (0.2-1.3) mg/dL AST 36 (17-59) U/L ALT 17 L (21-72) U/L Alkaline Phosphatase 127 H (38-126) U/L Total Creatine Kinase 266 H (55-170) U/L CK-MB (CK-2) 0.4 (0.0-2.4) ng/mL CK-MB (CK-2) Rel Index 0.2 Troponin I 0.041 H* (0.000-0.034) ng/mL Total Protein 6.9 (6.3-8.2) g/dL Albumin 3.8 (3.5-5.0) g/dL Influenza Type A RNA (Not Detectd) Influenza Type B (PCR) (Not Detectd) 01/08/18 01/08/18 01/08/18 Range/Units 09:03 09:03 09:40 WBC (3.8-10.6) k/uL RBC (4.30-5.90) m/uL Hgb (13.0-17.5) gm/dL Hct (39.0-53.0) % MCV (80.0-100.0) fL MCH (25.0-35.0) pg MCHC (31.0-37.0) g/dL RDW (11.5-15.5) % Plt Count (150-450) k/uL Neutrophils % % Lymphocytes % % Monocytes % % Eosinophils % % Basophils % % Neutrophils # (1.3-7.7) k/uL Lymphocytes # (1.0-4.8) k/uL Monocytes # (0-1.0) k/uL Eosinophils # (0-0.7) k/uL Basophils # (0-0.2) k/uL PT 17.2 H (9.0-12.0) sec INR 1.9 H (<1.2) APTT 31.0 H (22.0-30.0) sec Sodium (137-145) mmol/L Potassium (3.5-5.1) mmol/L Chloride (98-107) mmol/L Carbon Dioxide (22-30) mmol/L Anion Gap mmol/L BUN (9-20) mg/dL Creatinine (0.66-1.25) mg/dL Est GFR (CKD-EPI)AfAm (>60 ml/min/1.73 sqM) Est GFR (CKD-EPI)NonAf (>60 ml/min/1.73 sqM) Glucose (74-99) mg/dL Plasma Lactic Acid Srinivas 2.9 H* (0.7-2.0) mmol/L Calcium (8.4-10.2) mg/dL Total Bilirubin (0.2-1.3) mg/dL AST (17-59) U/L ALT (21-72) U/L Alkaline Phosphatase (38-126) U/L Total Creatine Kinase (55-170) U/L CK-MB (CK-2) (0.0-2.4) ng/mL CK-MB (CK-2) Rel Index Troponin I (0.000-0.034) ng/mL Total Protein (6.3-8.2) g/dL Albumin (3.5-5.0) g/dL Influenza Type A RNA Not Detected (Not Detectd) Influenza Type B (PCR) Not Detected (Not Detectd) Disposition Clinical Impression: Pneumonia Disposition: ADMITTED IP TO THIS HOSP Referrals: Valentin Mir MD [Primary Care Provider] - 1-2 days Time of Disposition: 12:09
[2018-01-08] MEDS: SODIUM CHLORIDE 0.9% 500 ML IV SCH ×3 (09:30→11:04)
[2018-01-08 09:34] LABS: Basophils % (A) 0 %; Eosinophils # (A) 0.1 k/uL (0-0.7); Eosinophils % (A) 1 %; HCT 31.4 % (39.0-53.0); HGB 10.2 gm/dL (13.0-17.5); Lymphocytes # (A) 0.9 k/uL (1.0-4.8); Lymphocytes % (A) 12 %; MCH 28.2 pg (25.0-35.0); MCHC 32.5 g/dL (31.0-37.0); MCV 86.7 fL (80.0-100.0); Mean Platelet Volume 7.2; Monocytes # (A) 0.4 k/uL (0-1.0); Monocytes % (A) 5 %; Neutrophils # (A) 6.1 k/uL (1.3-7.7); Neutrophils % (A) 78 %; Platelet Count 176 k/uL (150-450); RBC 3.63 m/uL (4.30-5.90); RDW 14.7 % (11.5-15.5); WBC 7.8 k/uL (3.8-10.6)
[2018-01-08 09:44] LABS: Albumin 3.8 g/dL (3.5-5.0); Calcium 8.7 mg/dL (8.4-10.2); Potassium 3.8 mmol/L (3.5-5.1); Total Bilirubin 1.6 mg/dL (0.2-1.3); Total Protein 6.9 g/dL (6.3-8.2)
[2018-01-08 09:45] LABS: INR 1.9 (<1.2); Prothrombin Time 17.2 sec (9.0-12.0)
--- NOTE | 2018-01-08 10:11 | XR ---
EXAMINATION TYPE: XR chest 2V DATE OF EXAM: 01/08/2018 COMPARISON: 11/22/2017 TECHNIQUE: PA and lateral views submitted. HISTORY: Hemoptysis FINDINGS: Hyperinflation suggests COPD. Heart enlarged and is postoperative change and cardiac device. Bilatera l consolidation and small effusion. Interstitial pattern is stable. No pneumothorax. Diffuse osteopen ia and arthropathy of the shoulders. Hypertrophic and degenerative change of the spine. There appears to be an epicardial lead. IMPRESSION: 1. Pleural-parenchymal disease is stable from 11/22/2017 Pneumonia with superimposed interstitial pneumonitis or venous congestion suspected. Correlate for un derlying chronic lung disease including COPD or interstitial fibrosis.
[2018-01-08 10:35] LABS: Creatine Kinase MB 0.4 ng/mL (0.0-2.4)
[2018-01-08 10:56] LABS: Troponin I 0.041 ng/mL (0.000-0.034)
[2018-01-08] MEDS ORDERED: PNEUMONIA PROTOCOL UTILIZED 1 EACH MISC PO PRN (12:10)
[2018-01-08] MEDS ORDERED: AZITHROMYCIN 500 MG in SODIUM CHLORIDE 0.9% 250 ML IVPB STA (12:10)
[2018-01-08 14:30] LABS: Appearance,Urine Clear (Clear); Bilirubin,Urine Negative (Negative); Blood,Urine Moderate (Negative); Color,Urine Yellow; Glucose,Urine (UA) Negative (Negative); Ketones,Urine Negative (Negative); Leukocyte Esterase,Urine Negative (Negative); Mucus,Urine Rare /hpf; Nitrite,Urine Negative (Negative); PH, Urine 5.5 (5.0-8.0); Protein,Urine 1+ (Negative); RBC,Urine 16 /hpf (0-5); Squamous Epithelial Cell,Urine <1 /hpf (0-4); WBC,Urine 3 /hpf (0-5)
[2018-01-08] MEDS ORDERED: NITROGLYCERIN SL TABS 0.4 MG TAB SUBLINGUAL PRN (17:19)
[2018-01-08] MEDS: FUROSEMIDE 40 MG TAB PO SCH (18:38)
--- NOTE | 2018-01-09 05:50 | HP ---
HISTORY AND PHYSICAL CHIEF COMPLAINT: Fever. HISTORY OF PRESENT ILLNESS: This is an 87-year-old gentleman who was admitted to the hospital after being brought in the emergency room with complaints of cough for the past 1 week. He has been coughing up some blood, bloody sputum, for the past week. He denied any associated chest pain. The patient does have some shortness of breath. Denies any orthopnea or PND. 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 The patient has been on diuresis with help. The patient has had a head cold with some cough and congestion. Denied any fever. However, the patient in the emergency room was noted to have a temperature of 101.3 and according to the ER physician. The patient at time of my evaluation is afebrile. The patient has a history of chronic atrial fibrillation, is on anticoagulation. The patient has been coughing up some blood, bloody sputum. 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 The patient also has a history of carcinoma of the colon with no evidence of recurrence. History of carcinoma of the prostate with previous treatment. The patient has had history of ischemic cardiomyopathy and dilated ischemic cardiomyopathy and he has an AICD in place. He does have a history of nephrolithiasis. He has some intermittent hematuria. No history of CVA, lung disease, liver disease, kidney disease, ulcers, TB, hepatitis or rheumatic fever. PAST SURGICAL HISTORY: Significant for bilateral inguinal herniorrhaphy, right knee I and D for infection, left elbow and left chest shrapnel injuries with left elbow deformity. History of CABG in 2000, partial colectomy and previous prostate biopsies. PERSONAL HISTORY: Nonsmoker at present. Quit smoking about 50 years ago. Used to smoke 3 packs per day for about 15 years. ALLERGIES: None. ALCOHOL: None. MEDICATIONS: Medications include: 1. Coumadin 2.5 mg 5 days a week ago. 2. Pravachol 40 mg daily. 3. Nitrostat sublingual p.r.n. 4. Zestril 2.5 mg daily. 5. Imdur 30 mg daily. 6. Lasix 40 mg b.i.d. 7. Ferrous sulfate 1 daily. 8. Atenolol 25 mg daily. 9. Aspirin 81 mg daily. SOCIAL HISTORY: Patient is . He lives with his spouse and a son. FAMILY MEDICAL HISTORY: Patient's father in his 80s with myocardial infarction, ASHD. Mother at the age of 56 of myocardial infarction. The patient had 7 brothers, one of carcinoma of the lung at age 72, one at the age of 41 of myocardial infarction, one brother had a history of COPD . The youngest brother has had a previous CVA with full recovery. A brother next to him is 2 years now. He had a history of dementia, coronary artery disease. Patient 4 sisters all . They all in childhood. The patient had 4 children. One son at age 41 of myocardial infarction. One son has a history of VSD and post CVA. He is 48 years of age. Patient has 2 daughters in good health. REVIEW OF SYSTEMS: NEURO: Denies any headaches, dizziness. No double vision, blurred vision. No symptoms of TIA syncope, seizures. PSYCH: Denies any anxiety or depression. CARDIAC: No chest pain, angina, palpitation. RESPIRATORY: Cough, hemoptysis. No chest pain. GI: No nausea, vomiting, abdominal pain, diarrhea. : No symptoms of dysuria, hematuria, urgency, frequency. EXTREMITIES: Denies pain, edema. CONSTITUTIONAL: No fever, chills. SKIN: No rashes. MUSCULOSKELETAL: Chronic arthritic pain. PHYSICAL EXAMINATION: Pleasant gentleman at present in no distress. Vital signs recorded earlier was temperature 101.3 with a pulse of 115, respirations 22, blood pressure 131/81, pulse ox 99% on room air. At the time of my evaluation, patient is afebrile, temperature 98.4, pulse 87, respirations 20, blood pressure 104/58, pulse ox 98% on 2 L. HEENT: Normocephalic. Neck decreased range of motion. Pupils are reactive. Nose was congested. Oral cavity is moist. Neck reveals 1+ JVD. CHEST EXAMINATION: Increased percussion note bilaterally. Dry crackles at the left base. Wet rhonchi at the left base. CARDIAC: Distant heart sounds, S1, S2. No gallop. Systolic murmur 2/6 left sternal border. ABDOMEN: Soft. Bowel sounds present. Extremities reveal no edema. Good pulses upper extremities. Mild decreased pedal pulses. NEUROLOGIC: Awake, alert, oriented x3 with well-coordinated movements except for decreased range of motion of the left elbow. LABORATORY ASSESSMENT: A chest x-ray, the radiologist felt may have a pneumonia present. Patient has a cardiomegaly. CBC revealed a white count normal at 7.8, hemoglobin 10.2, platelets 176. INR is 1.9. Electrolytes are normal. BUN 27, creatinine 1.02. Lactic acid was 2.9. Troponin 0.041. ASSESSMENT: 1. Pneumonia. 2. Dilated ischemic cardiomyopathy. 3. Chronic congestive cardiac failure secondary to systolic and diastolic dysfunction. 4. Coronary artery disease. 5. Hemoptysis. 6. History of colon cancer. 7. History of prostate cancer. PLAN: The patient admitted to the hospital. Continue present medical regimen. Patient is on Zithromax and Rocephin. Patient's condition discussed with the patient. Prognosis guarded. Coumadin will be held today. MMODL / IJN: [id number] /
[2018-01-09] MEDS: ASPIRIN 81 MG PO SCH (08:11)
[2018-01-09] MEDS: cefTRIAXone IN SWFI 1,000 MG/10 ML SYRINGE IVP SCH (08:12)
[2018-01-09] MEDS: AZITHROMYCIN 500 MG TAB PO SCH (08:12)
[2018-01-09] MEDS: ISOSORBIDE MONONITRATE ER 30 MG TAB.ER.24H PO SCH (08:17)
[2018-01-09] MEDS: ATENOLOL 25 MG TAB PO SCH (08:17)
[2018-01-09] MEDS: FUROSEMIDE 40 MG TAB PO SCH ×2 (08:17→17:05)
[2018-01-09] MEDS: LISINOPRIL 2.5 MG TAB PO SCH (08:18)
[2018-01-09 08:28] LABS: HCT 28.6 % (39.0-53.0); HGB 9.2 gm/dL (13.0-17.5); Hypochromasia Slight; MCH 28.3 pg (25.0-35.0); MCHC 32.3 g/dL (31.0-37.0); MCV 87.6 fL (80.0-100.0); Mean Platelet Volume 7.3; Platelet Count 139 k/uL (150-450); RBC 3.26 m/uL (4.30-5.90); RDW 14.5 % (11.5-15.5); WBC 6.1 k/uL (3.8-10.6)
[2018-01-09 08:30] LABS: Anion Gap 8 mmol/L; Blood Urea Nitrogen 20 mg/dL (9-20); Calcium 8.3 mg/dL (8.4-10.2); Carbon Dioxide 33 mmol/L (22-30); Chloride 98 mmol/L (98-107); Glucose 88 mg/dL (74-99); Potassium 3.2 mmol/L (3.5-5.1); Sodium 139 mmol/L (137-145)
[2018-01-09] MEDS ORDERED: Potassium Replacement Protocol 1 EACH MISC MISCELLANE PRN (09:11)
[2018-01-09] MEDS: POTASSIUM CHLORIDE ER 20 MEQ TAB.ER PO SCH ×2 (10:03→11:26)
--- NOTE | 2018-01-09 10:05 | XR ---
EXAMINATION TYPE: XR chest 2V DATE OF EXAM: 01/09/2018 COMPARISON: 01/08/2018 TECHNIQUE: PA and lateral views submitted. HISTORY: Fever FINDINGS: Hyperinflation suggests COPD. Heart enlarged and is postoperative change and cardiac device. Bilatera l consolidation and small effusion. Interstitial pattern is stable. No pneumothorax. Diffuse osteopen ia and arthropathy of the shoulders. Hypertrophic and degenerative change of the spine. There appears to be an epicardial lead. Stable nonspecific radiopaque density in the left upper quadrant. IMPRESSION: 1. Pleural-parenchymal disease is stable. Pneumonia with superimposed interstitial pneumonitis or lexie ous congestion suspected. Correlate for underlying chronic lung disease including COPD or interstitia l fibrosis.
[2018-01-09] MEDS: ALBUTEROL NEBULIZED 2.5 MG/3 ML INHALATION SCH ×2 (11:09→20:32)
--- NOTE | 2018-01-09 23:57 | PN ---
PROGRESS NOTE ATTENDING PHYSICIAN: Dr. Nile Mir. CHIEF COMPLAINT: Re-evaluation. HISTORY OF PRESENT ILLNESS: An 87-year-old gentleman was admitted to the hospital because of cough, hemoptysis. He had associated symptoms of fever, chills and shortness of breath. The patient's chest x-ray is suspicious for pneumonia. The patient does feel better today. REVIEW OF SYSTEMS: NEURO: Denies any anxiety, depression. CARDIAC: No chest pain, angina, palpitations. RESPIRATORY: Present complaint of cough and hemoptysis. No chest pain. GI: No nausea, vomiting. Appetite fair. No abdominal pain. No diarrhea. No bowel movement. : No symptoms of dysuria or hematuria. EXTREMITIES: Denies pain, edema. CONSTITUTIONAL: Low-grade fever. No chills. PHYSICAL EXAMINATION: Pleasant gentleman, at present in no distress. Vital signs revealed temperature was 100 oral, pulse 71, respirations 16, blood pressure 94/50, pulse ox of 98% room air. HEENT: Normocephalic. NECK: No JVD. CHEST: Clear to auscultation with wet light crackles at the left base, dry crackles at the right base. CARDIAC: Distant heart sounds; S1, S2 with no gallops. Irregularly irregular rhythm. Systolic murmur 2/6 left sternal border. ABDOMEN: Soft. No palpable masses. Bowel sounds normal. No organomegaly. No abdominal bruits. Extremities reveal no edema. NEUROLOGICAL: Awake, alert, oriented with well-coordinated movements. LABORATORY ASSESSMENT: Potassium of 3.2. Hemoglobin 8.2, platelets 139, white count 6.1. Chest x-ray: Stable, suspicious of possible pneumonia. ASSESSMENT: 1. Probable left lower lobe pneumonia. 2. Chronic congestive cardiac failure secondary to systolic and diastolic dysfunction. 3. Chronic atrial fibrillation. 4. Hemoptysis. 5. Chronic anemia. 6. Remote history of carcinoma of the colon. 7. History of carcinoma of the prostate. PLAN: Continue present medical regimen. Patient's Coumadin is still being held today. Potassium replenished. Patient's condition is guarded. Prognosis guarded. Will continue present regimen. Condition discussed with the patient and also with the spouse. MMODL / IJN: [id number] /
[2018-01-10] MEDS: ATENOLOL 25 MG TAB PO SCH (07:52)
[2018-01-10] MEDS: FUROSEMIDE 40 MG TAB PO SCH ×2 (07:52→16:14)
[2018-01-10] MEDS: cefTRIAXone IN SWFI 1,000 MG/10 ML SYRINGE IVP SCH (07:52)
[2018-01-10] MEDS: AZITHROMYCIN 500 MG TAB PO SCH (07:52)
[2018-01-10] MEDS: ASPIRIN 81 MG PO SCH (07:52)
[2018-01-10] MEDS: ALBUTEROL NEBULIZED 2.5 MG/3 ML INHALATION SCH ×3 (08:21→20:59)
[2018-01-10] MEDS: ISOSORBIDE MONONITRATE ER 30 MG TAB.ER.24H PO SCH (09:03)
[2018-01-10] MEDS: LISINOPRIL 2.5 MG TAB PO SCH (09:03)
[2018-01-10 09:27] LABS: INR 1.6 (<1.2); Prothrombin Time 14.8 sec (9.0-12.0)
--- NOTE | 2018-01-10 14:00 | CDI ---
Last Revision, August 2017 Documentation Clarification Form Date: 01/10/2018 1:53:00 AM From: Concepción RainMyersBROOKE, CCDS Admit Date: 01/08/2018 12:10:00 PM Patient Name: Steve Couch Visit Number: [id number] Discharge Date: ATTENTION: The Clinical Documentation Specialists (CDI) and [facility] Coding Staff appreciate your assistance in clarifying documentation. Please respond to the clarification below the line at the bottom and electronically sign. The CDI & [facility] Coding staff will review the response and follow-up if needed. Please note: Queries are made part of the Legal Health Record. If you have any questions, please contact the author of this message via ITS. Dr. Valentin Mir: Patient is admitted with pneumonia and being treated with IV antibiotics, has had bloody sputum for the past week with SOB. Per your 01/09 progress note: "Potassium 3.2. Potassium replenished." History/Risk Factors: Cardiac history including CABG & AICD, chronic CHF secondary to systolic & diastolic dysfunction on diuresis. Home meds: Coumadin, Pravachol, Nitro sl prn, Zestril, Imdur, Lasix, Ferrous sulfate, Atenolol & Aspirin. Clinical indicators: Presented with upper respiratory symtpoms, diagnosed with pneumonia. VS: T 99.5 - 101.3 LAB: K 3.8 - 3.2 - 3.8 Treatment: K Dur 20 po 20 meq q1hr po, IV abx for pneumonia. Please clarify what the abnormal laboratory signifies: Hypokalemia, significant to this admission Hypokalemia, not significant to this admission Unable to determine Other, please specify Please continue to document in your progress notes and discharge summary in order to capture severity of illness and risk of mortality. Include clinical findings that support your diagnosis. MTDD
[2018-01-10] MEDS: WARFARIN 5 MG TAB PO SCH (17:44)
--- NOTE | 2018-01-10 23:40 | PN ---
PROGRESS NOTE ATTENDING PHYSICIAN: Dr. Nile Mir. CHIEF COMPLAINT: Re-evaluation. HISTORY OF PRESENT ILLNESS: An 87-year-old gentleman was admitted to the hospital with a fever and suggestion of respiratory infection with pneumonia. The patient has underlying history of coronary artery disease, chronic congestive cardiac failure, stable. The patient also has underlying history of mild chronic anemia. He has chronic atrial fibrillation. The patient had hemoptysis, which has resolved. His Coumadin had been on hold for 2 days, will be resumed today. The patient is actually feeling better. REVIEW OF SYSTEMS: NEURO: Denies any headaches, dizziness. PSYCH: No anxiety. CARDIAC: No chest pain, angina, palpitation. RESPIRATORY: Cough. No hemoptysis. GI: No nausea, vomiting. Appetite improved. Abdominal pain. Did have a bowel movement yesterday. : No symptoms of dysuria, hematuria. EXTREMITIES: No pain. CONSTITUTIONAL: No fever, chills. PHYSICAL EXAMINATION: Pleasant gentleman, at present in no distress. Vital signs reveal temperature 98.5, temperature 98.9, pulse 67, respirations 17, blood pressure 86/47 with no symptoms. Pulse ox 97%. HEENT: Normocephalic. NECK: No JVD. CHEST: Clear to percussion. The patient does have some rhonchi in the left base. CARDIAC: Normal S1, S2 with no gallops. Irregularly, irregular rhythm. Systolic murmur 2/6 at apex. ABDOMEN: Soft. Bowel sounds present. Extremities reveal no edema. NEUROLOGIC: Awake, alert, oriented x3 with well-coordinated movements. LABORATORY ASSESSMENT: INR was 1.6. ASSESSMENT: 1. Pneumonia on medical therapy. 2. Chronic atrial fibrillation, controlled. 3. Chronic congestive cardiac failure secondary to systolic and diastolic dysfunction, stable. 4. Chronic anemia. 5. Remote history of carcinoma of the colon. 6. History of carcinoma of the prostate. PLAN: Patient is stable. Continue present medical regimen. Patient's condition discussed with the patient. Prognosis guarded. MMODL / IJN: [id number] /
[2018-01-11] MEDS: ALBUTEROL NEBULIZED 2.5 MG/3 ML INHALATION SCH ×3 (07:17→19:54)
[2018-01-11] MEDS: AZITHROMYCIN 500 MG TAB PO SCH (08:19)
[2018-01-11] MEDS: FUROSEMIDE 40 MG TAB PO SCH ×2 (08:19→17:04)
[2018-01-11] MEDS: ASPIRIN 81 MG PO SCH (08:19)
[2018-01-11] MEDS: LISINOPRIL 2.5 MG TAB PO SCH (08:19)
[2018-01-11] MEDS: ISOSORBIDE MONONITRATE ER 30 MG TAB.ER.24H PO SCH (08:19)
[2018-01-11] MEDS: cefTRIAXone IN SWFI 1,000 MG/10 ML SYRINGE IVP SCH (08:19)
[2018-01-11] MEDS: ATENOLOL 25 MG TAB PO SCH (08:19)
[2018-01-11 10:10] LABS: INR 1.7 (<1.2); Prothrombin Time 15.3 sec (9.0-12.0)
[2018-01-11 10:14] LABS: Calcium 8.7 mg/dL (8.4-10.2); Potassium 3.8 mmol/L (3.5-5.1)
[2018-01-11 13:25] VITALS: BMI 14.5
[2018-01-11] MEDS: WARFARIN 5 MG TAB PO SCH (17:04)
--- NOTE | 2018-01-11 23:59 | PN ---
PROGRESS NOTE ATTENDING PHYSICIAN: Dr. Nile Mir. CHIEF COMPLAINT: Re-evaluation. HISTORY OF PRESENT ILLNESS: A 87-year-old gentleman was admitted to the facility with pneumonia and fever. The patient is doing better. He has had no further fever. He is feeling stronger. He is coughing, but no further hemoptysis. He does have some amount of sputum. His appetite is improved. REVIEW OF SYSTEMS: NEURO: Denies any headache or dizziness. PSYCH: No anxiety. CARDIAC: No chest pain, angina, palpitations. RESPIRATORY: No shortness of breath. Does have cough, no hemoptysis. GI: No nausea, vomiting, abdominal pain, diarrhea. : No symptoms of dysuria, hematuria. EXTREMITIES: No pain, edema. CONSTITUTIONAL: No fever, chills. PHYSICAL EXAMINATION: Pleasant gentleman in no distress. VITAL SIGNS: Temperature 98.2, pulse 62, respirations 18, blood pressure 95/58, pulse ox 99% on room air. HEENT: Normocephalic. NECK: No JVD. CHEST EXAMINATION: Clear to percussion with increased percussion. The patient has rhonchi at the left base. CARDIAC: Distant heart sounds. S1, S2. No gallop. Systolic murmur 2/6 left sternal border. Irregular rhythm. ABDOMEN: Soft. Bowel sounds present. Extremities revealed no edema. Good pulses upper extremities, mild decreased pedal pulses. Neurologically awake, alert, oriented with well-coordinated movements of right upper extremity into lower extremities. The patient has a left elbow deformity with some reduced range of motion. LABORATORY ASSESSMENT: INR was 1.7. Electrolytes normal. BUN 23, creatinine 0.9. ASSESSMENT: 1. Pneumonia, left lower lobe, improving. 2. Chronic atrial fibrillation. 3. Chronic obstructive pulmonary disease. 4. Anemia, chronic blood loss. 5. Anticoagulated status. 6. Coronary artery disease. PLAN: The patient is stable. Continue present medical regimen. Patient's condition discussed with the patient. Potential discharge home tomorrow. MMODL / IJN: [id number] /
[2018-01-12] MEDS: ALBUTEROL NEBULIZED 2.5 MG/3 ML INHALATION SCH (07:47)
[2018-01-12 07:59] VITALS: BP 101/64; PULSE 66; RESP 18; TEMP 98.8
[2018-01-12] MEDS: ASPIRIN 81 MG PO SCH (08:42)
[2018-01-12] MEDS: ATENOLOL 25 MG TAB PO SCH (08:42)
[2018-01-12] MEDS: LISINOPRIL 2.5 MG TAB PO SCH (08:42)
[2018-01-12] MEDS: AZITHROMYCIN 500 MG TAB PO SCH (08:42)
[2018-01-12] MEDS: FUROSEMIDE 40 MG TAB PO SCH (08:42)
[2018-01-12] MEDS: cefTRIAXone IN SWFI 1,000 MG/10 ML SYRINGE IVP SCH (08:42)
[2018-01-12] MEDS: ISOSORBIDE MONONITRATE ER 30 MG TAB.ER.24H PO SCH (08:42)
[2018-01-12 08:49] LABS: INR 2.1 (<1.2); Prothrombin Time 18.9 sec (9.0-12.0)
--- NOTE | 2018-01-29 12:20 | P.DS ---
Providers Date of admission: 01/08/18 12:10 Attending physician: Valentin Mir Primary care physician: Valentin Mir [facility] Course: This 87-year-old was admitted to the hospital with a low-grade fever and cough congestion and hemoptysis. Chest x-ray suggested possible bilateral pneumonia. Patient clinical examination had left base rhonchi and suspicion of pneumonia. He does have some chronic pulmonary venous congestion. With a previous history of congestive cardiac failure is here both systolic and diastolic dysfunction compensated. He has a history of dilated ischemic cardiomyopathy and also has an AICD in place. Patient is history of chronic atrial fibrillation and has been on anticoagulation. Patient has a history of carcinoma of the colon and carcinoma of the prostate both treated and in remission at present: Hospitalizations patient's placed on IV antibiotics and Coumadin was held. Patient's had no further hemoptysis. At the time of discharge he is he is placed on Zithromax and his warfarin is reduced. Patient will follow up in outpatient. Patient did have a hypokalemia of 3.2 which was replenished patient patient's hyperkalemia managed treated because of her history of cardiac arrhythmia and cardiomyopathy. Final diagnosis to include: 1. Community-acquired pneumonia 2. 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 Hemoptysis 4. Dilated ischemic cardiomyopathy 5. Chronic atrial fibrillation 6. AICD status 7. Anemia of chronic blood loss 8. Adequately status 9. History of carcinoma of the prostate status post radiation therapy 10. History of carcinoma of the colon status post surgery and no recurrence 11. Hypokalemia resolved Patient Condition at Discharge: Good Plan - Discharge Summary Discharge Rx Participant: No New Discharge Prescriptions: Continue Aspirin 81 mg PO DAILY Atenolol [Tenormin] 25 mg PO DAILY Pravastatin Sodium [Pravachol] 40 mg PO HS Nitroglycerin Sl Tabs [Nitrostat] 0.4 mg SUBLINGUAL Q5M PRN PRN Reason: Chest Pain Furosemide [Lasix] 40 mg PO BID Ferrous Gluconate 324 mg PO DAILY Isosorbide Mononitrate ER [Imdur] 30 mg PO DAILY Lisinopril [Zestril] 2.5 mg PO DAILY tab No Action Warfarin [Coumadin] 2.5 mg PO SUMOTUWETHFR Discharge Medication List Aspirin 81 mg PO DAILY 05/25/14 [History] Atenolol [Tenormin] 25 mg PO DAILY 05/25/14 [History] Warfarin [Coumadin] 2.5 mg PO SUMOTUWETHFR 05/25/14 [History] Ferrous Gluconate 324 mg PO DAILY 10/01/17 [History] Furosemide [Lasix] 40 mg PO BID 10/01/17 [History] Nitroglycerin Sl Tabs [Nitrostat] 0.4 mg SUBLINGUAL Q5M PRN 10/01/17 [History] Pravastatin Sodium [Pravachol] 40 mg PO HS 10/01/17 [History] Isosorbide Mononitrate ER [Imdur] 30 mg PO DAILY 11/22/17 [History] Lisinopril [Zestril] 2.5 mg PO DAILY tab 11/23/17 [Rx] Follow up Appointment(s)/Referral(s): Valentin Mir MD [Primary Care Provider] - 1 Week Patient Instructions/Handouts: Heart Failure ([place]), Pneumonia (DC) Activity/Diet/Wound Care/Special Instructions: Cardiac diet. Activity as tolerated. Discharge Disposition: HOME SELF-CARE
== END 2018-01-12 11:17 | disposition home or self-care (01) | DRG 194 ==
LOC: EC 08:31 → 6SEL 12:10 → 4MS4W 17:20
PROVIDERS: ADMIT Internal Medicine; ATTEND Internal Medicine
DX: J18.9 Pneumonia, unspecified organism (principal); I50.42 Chronic combined systolic (congestive) and diastolic (congestive) heart failure; R04.2 Hemoptysis; J44.0 Chronic obstructive pulmonary disease with (acute) lower respiratory infection; I48.2 Chronic atrial fibrillation; R31.9 Hematuria, unspecified; I25.5 Ischemic cardiomyopathy; D50.0 Iron deficiency anemia secondary to blood loss (chronic); I25.10 Atherosclerotic heart disease of native coronary artery without angina pectoris; E87.6 Hypokalemia; I25.2 Old myocardial infarction; Z79.82 Long term (current) use of aspirin; Z79.01 Long term (current) use of anticoagulants; Z79.899 Other long term (current) drug therapy; Z87.442 Personal history of urinary calculi; Z85.46 Personal history of malignant neoplasm of prostate; Z95.5 Presence of coronary angioplasty implant and graft; Z95.810 Presence of automatic (implantable) cardiac defibrillator; Z85.038 Personal history of other malignant neoplasm of large intestine; Z90.49 Acquired absence of other specified parts of digestive tract; Z87.891 Personal history of nicotine dependence; Z88.6 Allergy status to analgesic agent; Z88.5 Allergy status to narcotic agent; Z82.49 Family history of ischemic heart disease and other diseases of the circulatory system; Z87.01 Personal history of pneumonia (recurrent); Z92.3 Personal history of irradiation; Z95.1 Presence of aortocoronary bypass graft; Z80.1 Family history of malignant neoplasm of trachea, bronchus and lung; Z82.5 Family history of asthma and other chronic lower respiratory diseases; Z81.8 Family history of other mental and behavioral disorders; Z82.3 Family history of stroke
CPT/HCPCS: 36415; 71046; 80048; 80053; 81001; 82550; 82553; 83605; 84132; 84484; 85025; 85027; 85610; 85730; 87040; 87070; 87086; 87205; 87502; 93005; 94640; 94760; 96365; 96366; 96375; 99285

== ENCOUNTER 2018-01-29 09:48 | Emergency (ER) | payer MEDICARE, OTHER ==
[2018-01-29 10:02] VITALS: TEMP 98.2
--- NOTE | 2018-01-29 10:43 | ED ---
General Adult HPI - General Chief complaint: Upper Respiratory Infection Stated complaint: Coughing up Blood Time Seen by Provider: 01/29/18 10:00 Source: patient, RN notes reviewed Mode of arrival: ambulatory Limitations: no limitations - History of Present Illness Initial comments: This is an 87-year-old male who presents emergency department stating that he has a defibrillator and is on Coumadin. Patient states she's here for hemoptysis. Patient states 2 weeks ago he was released from the hospital after being in the hospital for 5 days with pneumonia. Patient states ever since then he's had episodes of hemoptysis. Patient states he got a little worse today and he thought he might be more short of breath while he was mowing the lawn so he decided come in. Patient denies any significant cough or sputum production. Patient denies chest pain palpitations. Patient denies any fever or chills. Patient denies any headache patient denies numbness weakness. Patient denies abdominal pain patient denies nausea vomiting diarrhea. Patient denies any leg swelling or calf tenderness. - Related Data Home Medications Medication Instructions Recorded Confirmed Aspirin 81 mg PO DAILY 05/25/14 01/29/18 Atenolol [Tenormin] 25 mg PO DAILY 05/25/14 01/29/18 Warfarin [Coumadin] 2.5 mg PO SUMOTUWETHFR 05/25/14 01/29/18 Ferrous Gluconate 324 mg PO DAILY 10/01/17 01/29/18 Furosemide [Lasix] 40 mg PO BID 10/01/17 01/29/18 Nitroglycerin Sl Tabs [Nitrostat] 0.4 mg SUBLINGUAL Q5M PRN 10/01/17 01/29/18 Pravastatin Sodium [Pravachol] 40 mg PO HS 10/01/17 01/29/18 Isosorbide Mononitrate ER [Imdur] 30 mg PO DAILY 11/22/17 01/29/18 Previous Rx's Medication Instructions Recorded Lisinopril [Zestril] 2.5 mg PO DAILY tab 11/23/17 Allergies Allergy/AdvReac Type Severity Reaction Status Date / Time acetaminophen [From Tylenol] Allergy Rash/Hives Verified 01/29/18 10:02 meperidine HCl [From Demerol] Allergy Unknown Verified 01/29/18 10:02 Review of Systems ROS Statement: Those systems with pertinent positive or pertinent negative responses have been documented in the HPI. ROS Other: All systems not noted in ROS Statement are negative. 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 Last Myocardial Infarction Date:: 2002 History of Any Multi-Drug Resistant Organisms: None Reported Past Surgical History: Heart Catheterization With Stent, Pacemaker, Prostate Surgery Additional Past Surgical History / Comment(s): 10/22/13 AICD, 2006 pacemaker, PCI with stents (3), 2000 CABG 3 vessel, prostate biopsies, bilateral inguinal hernia repair, R knee I&D, L elbow/L chest schrapnel injuries with skin graft to L elbow and L knee, partial colectomy, EGD/colonoscopies. Past Anesthesia/Blood Transfusion Reactions: No Reported Reaction Additional Past Anesthesia/Blood Transfusion Reaction / Comment(s): Pt has received blood before without reaction. Date of Last Stent Placement:: 2002 Type of Cardiac Device: Permanent Pacemaker, AICD Device Placement Date:: 10/22/2013 AICD/ 2006 pacer Past Psychological History: No Psychological Hx Reported Smoking Status: Former smoker - Past Family History Father Family Medical History: Myocardial Infarction ([place]) Additional Family Medical History / Comment(s): "hardened arteries". Father in his 80s of a [place]. Mother Family Medical History: Myocardial Infarction ([place]) Additional Family Medical History / Comment(s): Mother at the age of 56yrs from a [place]. General Exam - General Exam Comments Initial Comments: GENERAL: Patient is well-developed and well-nourished. Patient is nontoxic and well- hydrated and is in no acute distress. ENT: Neck is soft and supple. No significant lymphadenopathy is noted. Oropharynx is clear. Moist mucous membranes. Neck has full range of motion without eliciting any pain. EYES: The sclera were anicteric and conjunctiva were pink and moist. Extraocular movements were intact and pupils were equal round and reactive to light. Eyelids were unremarkable. PULMONARY: Unlabored respirations. Good breath sounds bilaterally. No audible rales rhonchi or wheezing was noted. CARDIOVASCULAR: There is a regular rate and rhythm without any murmurs gallops or rubs. ABDOMEN: Soft and nontender with normal bowel sounds. No palpable organomegaly was noted. There is no palpable pulsatile mass. SKIN: Skin is clear with no lesions or rashes and otherwise unremarkable. NEUROLOGIC: Patient is alert and oriented x3. Cranial nerves II through XII are grossly intact. Motor and sensory are also intact. Normal speech, volume and content. Symmetrical smile. MUSCULOSKELETAL: Normal extremities with adequate strength and full range of motion. No lower extremity swelling or edema. No calf tenderness. LYMPHATICS: No significant lymphadenopathy is noted PSYCHIATRIC: Normal psychiatric evaluation. Normal interpersonal interactions appears functionally intact in deals appropriately with others. No signs of depression. No signs of anxiety. Limitations: no limitations Course Vital Signs 01/29/18 01/29/18 10:01 12:41 Temperature 98.2 F Pulse Rate 79 49 L Respiratory 18 16 Rate Blood Pressure 99/55 102/58 O2 Sat by Pulse 100 100 Oximetry Medical Decision Making - Medical Decision Making EKG shows atrial fibrillation at 56 bpm QRS is 150 QT intervals 548 QTC is 528. EKG is compared to an old EKG no acute changes are noted. Chest x-ray shows no acute abnormality. I spoke with Dr. Mir and he was in agreement with sending the patient home and having him follow-up as an outpatient with him. - Lab Data Result diagrams: 01/29/18 10:55 01/29/18 10:55 Lab Results 01/29/18 01/29/18 01/29/18 Range/Units 10:55 10:55 10:55 WBC 4.7 (3.8-10.6) k/uL RBC 3.37 L (4.30-5.90) m/uL Hgb 9.2 L (13.0-17.5) gm/dL Hct 30.3 L (39.0-53.0) % MCV 90.0 (80.0-100.0) fL MCH 27.3 (25.0-35.0) pg MCHC 30.3 L (31.0-37.0) g/dL RDW 16.3 H (11.5-15.5) % Plt Count 160 (150-450) k/uL Neutrophils % 72 % Lymphocytes % 15 % Monocytes % 8 % Eosinophils % 2 % Basophils % 1 % Neutrophils # 3.4 (1.3-7.7) k/uL Lymphocytes # 0.7 L (1.0-4.8) k/uL Monocytes # 0.4 (0-1.0) k/uL Eosinophils # 0.1 (0-0.7) k/uL Basophils # 0.0 (0-0.2) k/uL Hypochromasia Slight Anisocytosis Slight PT (9.0-12.0) sec INR (<1.2) APTT (22.0-30.0) sec D-Dimer (<0.60) mg/L FEU Sodium 139 (137-145) mmol/L Potassium 3.5 (3.5-5.1) mmol/L Chloride 97 L (98-107) mmol/L Carbon Dioxide 30 (22-30) mmol/L Anion Gap 12 mmol/L BUN 21 H (9-20) mg/dL Creatinine 0.94 (0.66-1.25) mg/dL Est GFR (CKD-EPI)AfAm 86 (>60 ml/min/1.73 sqM) Est GFR (CKD-EPI)NonAf 74 (>60 ml/min/1.73 sqM) Glucose 100 H (74-99) mg/dL Calcium 8.8 (8.4-10.2) mg/dL Total Bilirubin 1.0 (0.2-1.3) mg/dL AST 28 (17-59) U/L ALT 25 (21-72) U/L Alkaline Phosphatase 98 (38-126) U/L Total Creatine Kinase 77 (55-170) U/L CK-MB (CK-2) 0.4 (0.0-2.4) ng/mL CK-MB (CK-2) Rel Index 0.5 Troponin I 0.017 (0.000-0.034) ng/mL Total Protein 6.4 (6.3-8.2) g/dL Albumin 3.4 L (3.5-5.0) g/dL 01/29/18 Range/Units 10:55 WBC (3.8-10.6) k/uL RBC (4.30-5.90) m/uL Hgb (13.0-17.5) gm/dL Hct (39.0-53.0) % MCV (80.0-100.0) fL MCH (25.0-35.0) pg MCHC (31.0-37.0) g/dL RDW (11.5-15.5) % Plt Count (150-450) k/uL Neutrophils % % Lymphocytes % % Monocytes % % Eosinophils % % Basophils % % Neutrophils # (1.3-7.7) k/uL Lymphocytes # (1.0-4.8) k/uL Monocytes # (0-1.0) k/uL Eosinophils # (0-0.7) k/uL Basophils # (0-0.2) k/uL Hypochromasia Anisocytosis PT 16.7 H (9.0-12.0) sec INR 1.8 H (<1.2) APTT 30.6 H (22.0-30.0) sec D-Dimer 0.23 (<0.60) mg/L FEU Sodium (137-145) mmol/L Potassium (3.5-5.1) mmol/L Chloride (98-107) mmol/L Carbon Dioxide (22-30) mmol/L Anion Gap mmol/L BUN (9-20) mg/dL Creatinine (0.66-1.25) mg/dL Est GFR (CKD-EPI)AfAm (>60 ml/min/1.73 sqM) Est GFR (CKD-EPI)NonAf (>60 ml/min/1.73 sqM) Glucose (74-99) mg/dL Calcium (8.4-10.2) mg/dL Total Bilirubin (0.2-1.3) mg/dL AST (17-59) U/L ALT (21-72) U/L Alkaline Phosphatase (38-126) U/L Total Creatine Kinase (55-170) U/L CK-MB (CK-2) (0.0-2.4) ng/mL CK-MB (CK-2) Rel Index Troponin I (0.000-0.034) ng/mL Total Protein (6.3-8.2) g/dL Albumin (3.5-5.0) g/dL Disposition Clinical Impression: Hemoptysis Disposition: HOME SELF-CARE Condition: Good Instructions: Hemoptysis (ED) Is patient prescribed a controlled substance at d/c from ED?: No Referrals: Valentin Mir MD [Primary Care Provider] - 1-2 days Time of Disposition: 13:04
[2018-01-29 11:09] LABS: Anisocytosis Slight; Basophils % (A) 1 %; Eosinophils # (A) 0.1 k/uL (0-0.7); Eosinophils % (A) 2 %; HCT 30.3 % (39.0-53.0); HGB 9.2 gm/dL (13.0-17.5); Hypochromasia Slight; Lymphocytes # (A) 0.7 k/uL (1.0-4.8); Lymphocytes % (A) 15 %; MCH 27.3 pg (25.0-35.0); MCHC 30.3 g/dL (31.0-37.0); Monocytes # (A) 0.4 k/uL (0-1.0); Monocytes % (A) 8 %; Neutrophils # (A) 3.4 k/uL (1.3-7.7); Neutrophils % (A) 72 %; Platelet Count 160 k/uL (150-450); RBC 3.37 m/uL (4.30-5.90); RDW 16.3 % (11.5-15.5); WBC 4.7 k/uL (3.8-10.6)
[2018-01-29 11:25] LABS: D-Dimer 0.23 mg/L FEU (<0.60); INR 1.8 (<1.2); Partial Thromboplastin Time 30.6 sec (22.0-30.0); Prothrombin Time 16.7 sec (9.0-12.0)
[2018-01-29 11:30] LABS: Albumin 3.4 g/dL (3.5-5.0); Calcium 8.8 mg/dL (8.4-10.2); Potassium 3.5 mmol/L (3.5-5.1); Total Protein 6.4 g/dL (6.3-8.2)
[2018-01-29 11:42] LABS: Creatine Kinase MB 0.4 ng/mL (0.0-2.4); Troponin I 0.017 ng/mL (0.000-0.034)
--- NOTE | 2018-01-29 12:02 | XR ---
EXAMINATION TYPE: XR chest 2V DATE OF EXAM: 01/29/2018 COMPARISON: 01/09/2018 HISTORY: Hemoptysis TECHNIQUE: Frontal and lateral views of the chest are obtained. FINDINGS: Extensive emphysematous changes are seen in addition to persistent reticular nodular opaci ties at the lung bases and peripheral distribution compatible with pulmonary fibrosis. Pulmonary ela ry engorgement suggests underlying pulmonary arterial hypertension. Post CABG changes of the chest ar e seen with multilead left-sided cardiac device and mild cardiomegaly. Generalized osseous deminerali zation is present with old fracture deformities of the right ribs. No new focal consolidation. IMPRESSION: No new focal consolidation to suggest pneumonia. Extensive centrilobular emphysema, pulm onary fibrosis, and findings suggesting underlying pulmonary arterial hypertension.
[2018-01-29 12:41] VITALS: BP 102/58; PULSE 49; RESP 16
== END 2018-01-29 13:31 | disposition home or self-care (01) ==
LOC: EC 09:48
DX: R04.2 Hemoptysis (principal); I48.91 Unspecified atrial fibrillation; I50.9 Heart failure, unspecified; I25.2 Old myocardial infarction; I20.9 Angina pectoris, unspecified; D64.9 Anemia, unspecified; N28.9 Disorder of kidney and ureter, unspecified; Z95.1 Presence of aortocoronary bypass graft; Z95.810 Presence of automatic (implantable) cardiac defibrillator; Z88.5 Allergy status to narcotic agent; Z88.6 Allergy status to analgesic agent; Z79.01 Long term (current) use of anticoagulants; Z79.82 Long term (current) use of aspirin; Z79.899 Other long term (current) drug therapy; Z87.891 Personal history of nicotine dependence
CPT/HCPCS: 36415; 71046; 80053; 82550; 82553; 84484; 85025; 85379; 85610; 85730; 87040; 93005; 99284

== ENCOUNTER 2018-04-16 21:11 | Emergency (ER) | payer MEDICARE, OTHER ==
[2018-04-16] MEDS ORDERED: NITROGLYCERIN SL TABS 0.4 MG TAB SUBLINGUAL PRN (21:55)
--- NOTE | 2018-04-16 21:55 | ED ---
General Adult HPI - General Chief complaint: Chest Pain Stated complaint: chest pain Time Seen by Provider: 04/16/18 21:20 Source: patient, RN notes reviewed, old records reviewed Mode of arrival: wheelchair Limitations: no limitations - History of Present Illness Initial comments: This is an 88-year-old male the ER for evaluation of chest pain. Patient is anterior left-sided chest pain and shortness of breath. Brad patient's main complaint was shortness of breath. Patient has prolonged and long history of medical illness, heart disease. Patient states he feels significantly improved with no complaints currently here in the emergency room. Patient states symptoms all began while walking the dog 2 hours prior to arrival. Patient presented today again for chest pain and shortness of breath. - Related Data Home Medications Medication Instructions Recorded Confirmed Aspirin 81 mg PO DAILY 05/25/14 04/16/18 Atenolol [Tenormin] 25 mg PO DAILY 05/25/14 04/16/18 Warfarin [Coumadin] 2.5 mg PO SUMOTUWETHFR 05/25/14 04/16/18 Ferrous Gluconate 324 mg PO DAILY 10/01/17 04/16/18 Furosemide [Lasix] 40 mg PO BID 10/01/17 04/16/18 Nitroglycerin Sl Tabs [Nitrostat] 0.4 mg SUBLINGUAL Q5M PRN 10/01/17 04/16/18 Pravastatin Sodium [Pravachol] 40 mg PO HS 10/01/17 04/16/18 Isosorbide Mononitrate ER [Imdur] 30 mg PO DAILY 11/22/17 04/16/18 Previous Rx's Medication Instructions Recorded Lisinopril [Zestril] 2.5 mg PO DAILY tab 11/23/17 Allergies Allergy/AdvReac Type Severity Reaction Status Date / Time acetaminophen [From Tylenol] Allergy Rash/Hives Verified 04/16/18 21:37 meperidine HCl [From Demerol] AdvReac Nausea & Verified 04/16/18 21:37 Vomiting Review of Systems ROS Statement: Those systems with pertinent positive or pertinent negative responses have been documented in the HPI. ROS Other: All systems not noted in ROS Statement are negative. 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 Last Myocardial Infarction Date:: 2002 History of Any Multi-Drug Resistant Organisms: None Reported Past Surgical History: Heart Catheterization With Stent, Pacemaker, Prostate Surgery Additional Past Surgical History / Comment(s): 10/22/13 AICD, 2006 pacemaker, PCI with stents (3), 2000 CABG 3 vessel, prostate biopsies, bilateral inguinal hernia repair, R knee I&D, L elbow/L chest schrapnel injuries with skin graft to L elbow and L knee, partial colectomy, EGD/colonoscopies. Past Anesthesia/Blood Transfusion Reactions: No Reported Reaction Additional Past Anesthesia/Blood Transfusion Reaction / Comment(s): Pt has received blood before without reaction. Date of Last Stent Placement:: 2002 Type of Cardiac Device: Permanent Pacemaker, AICD Device Placement Date:: 10/22/2013 AICD/ 2006 pacer Past Psychological History: No Psychological Hx Reported Smoking Status: Former smoker Past Alcohol Use History: None Reported Past Drug Use History: None Reported - Past Family History Father Family Medical History: Myocardial Infarction ([place]) Additional Family Medical History / Comment(s): "hardened arteries". Father in his 80s of a [place]. Mother Family Medical History: Myocardial Infarction ([place]) Additional Family Medical History / Comment(s): Mother at the age of 56yrs from a [place]. General Exam Limitations: no limitations General appearance: alert, in no apparent distress Head exam: Present: atraumatic, normocephalic, normal inspection Eye exam: Present: normal appearance, PERRL, EOMI. Absent: scleral icterus, conjunctival injection, periorbital swelling ENT exam: Present: normal exam, mucous membranes moist Neck exam: Present: normal inspection. Absent: tenderness, meningismus, lymphadenopathy Respiratory exam: Present: normal lung sounds bilaterally. Absent: respiratory distress, wheezes, rales, rhonchi, stridor Cardiovascular Exam: Present: regular rate, normal rhythm, normal heart sounds. Absent: systolic murmur, diastolic murmur, rubs, gallop, clicks GI/Abdominal exam: Present: soft, normal bowel sounds. Absent: distended, tenderness, guarding, rebound, rigid Extremities exam: Present: normal inspection, full ROM, normal capillary refill. Absent: tenderness, pedal edema, joint swelling, calf tenderness Back exam: Present: normal inspection Neurological exam: Present: alert, oriented X3, CN II-XII intact Psychiatric exam: Present: normal affect, normal mood Skin exam: Present: warm, dry, intact, normal color. Absent: rash Course Vital Signs 04/16/18 04/16/18 21:16 22:59 Temperature 97.3 F L 98.5 F Pulse Rate 71 67 Respiratory 20 18 Rate Blood Pressure 109/55 108/78 O2 Sat by Pulse 95 98 Oximetry - Reevaluation(s) Reevaluation #1: Patient currently has no chest pain and elevated troponin from 0 but nonsignificant and lower than normal Patient remains asymptomatic throughout ER stay, refusing admission to hospital , refusing repeat troponin EKG Findings - EKG Comments: EKG Findings:: EKG shows A. fib rate of 67, QRS 140, QTc 488 Medical Decision Making - Medical Decision Making 88 male the ER for evaluation of nonspecific chest pain. Likely cardiac in origin related to exertional dyspnea. Patient refusing to stay in the ER for further observation at this time. Patient will be discharged home, follow-up with cardiology - Lab Data Result diagrams: 04/16/18 21:38 04/16/18 21:38 Lab Results 04/16/18 04/16/18 04/16/18 Range/Units 21:38 21:38 21:38 WBC 5.9 (3.8-10.6) k/uL RBC 3.60 L (4.30-5.90) m/uL Hgb 10.1 L (13.0-17.5) gm/dL Hct 31.4 L (39.0-53.0) % MCV 87.2 (80.0-100.0) fL MCH 28.1 (25.0-35.0) pg MCHC 32.2 (31.0-37.0) g/dL RDW 14.9 (11.5-15.5) % Plt Count 168 (150-450) k/uL Neutrophils % 70 % Lymphocytes % 19 % Monocytes % 7 % Eosinophils % 2 % Basophils % 1 % Neutrophils # 4.2 (1.3-7.7) k/uL Lymphocytes # 1.1 (1.0-4.8) k/uL Monocytes # 0.4 (0-1.0) k/uL Eosinophils # 0.1 (0-0.7) k/uL Basophils # 0.0 (0-0.2) k/uL Hypochromasia Slight PT (9.0-12.0) sec INR (<1.2) APTT (22.0-30.0) sec Sodium 138 (137-145) mmol/L Potassium 3.7 (3.5-5.1) mmol/L Chloride 99 (98-107) mmol/L Carbon Dioxide 32 H (22-30) mmol/L Anion Gap 7 mmol/L BUN 23 H (9-20) mg/dL Creatinine 1.00 (0.66-1.25) mg/dL Est GFR (CKD-EPI)AfAm 79 (>60 ml/min/1.73 sqM) Est GFR (CKD-EPI)NonAf 68 (>60 ml/min/1.73 sqM) Glucose 108 H (74-99) mg/dL Calcium 8.8 (8.4-10.2) mg/dL Magnesium 2.2 (1.6-2.3) mg/dL Total Bilirubin 0.7 (0.2-1.3) mg/dL AST 31 (17-59) U/L ALT 28 (21-72) U/L Alkaline Phosphatase 123 (38-126) U/L Total Creatine Kinase 111 (55-170) U/L CK-MB (CK-2) 0.9 (0.0-2.4) ng/mL CK-MB (CK-2) Rel Index 0.8 Troponin I 0.031 (0.000-0.034) ng/mL Total Protein 6.4 (6.3-8.2) g/dL Albumin 3.5 (3.5-5.0) g/dL 04/16/18 Range/Units 21:38 WBC (3.8-10.6) k/uL RBC (4.30-5.90) m/uL Hgb (13.0-17.5) gm/dL Hct (39.0-53.0) % MCV (80.0-100.0) fL MCH (25.0-35.0) pg MCHC (31.0-37.0) g/dL RDW (11.5-15.5) % Plt Count (150-450) k/uL Neutrophils % % Lymphocytes % % Monocytes % % Eosinophils % % Basophils % % Neutrophils # (1.3-7.7) k/uL Lymphocytes # (1.0-4.8) k/uL Monocytes # (0-1.0) k/uL Eosinophils # (0-0.7) k/uL Basophils # (0-0.2) k/uL Hypochromasia PT 16.4 H (9.0-12.0) sec INR 1.8 H (<1.2) APTT 32.0 H (22.0-30.0) sec Sodium (137-145) mmol/L Potassium (3.5-5.1) mmol/L Chloride (98-107) mmol/L Carbon Dioxide (22-30) mmol/L Anion Gap mmol/L BUN (9-20) mg/dL Creatinine (0.66-1.25) mg/dL Est GFR (CKD-EPI)AfAm (>60 ml/min/1.73 sqM) Est GFR (CKD-EPI)NonAf (>60 ml/min/1.73 sqM) Glucose (74-99) mg/dL Calcium (8.4-10.2) mg/dL Magnesium (1.6-2.3) mg/dL Total Bilirubin (0.2-1.3) mg/dL AST (17-59) U/L ALT (21-72) U/L Alkaline Phosphatase (38-126) U/L Total Creatine Kinase (55-170) U/L CK-MB (CK-2) (0.0-2.4) ng/mL CK-MB (CK-2) Rel Index Troponin I (0.000-0.034) ng/mL Total Protein (6.3-8.2) g/dL Albumin (3.5-5.0) g/dL - Radiology Data Radiology results: report reviewed (Chest x-rays negative for acute disease), image reviewed Disposition Clinical Impression: Chest pain Disposition: HOME SELF-CARE Condition: Undetermined Instructions: Chest Pain (ED) Is patient prescribed a controlled substance at d/c from ED?: No Referrals: Valentin Mir MD [Primary Care Provider] - 1-2 days
--- NOTE | 2018-04-16 21:57 | XR ---
EXAMINATION TYPE: XR chest 2V DATE OF EXAM: 04/16/2018 COMPARISON: 01/29/2018 HISTORY: Short of breath TECHNIQUE: Frontal and lateral views of the chest are obtained. FINDINGS: Heart is enlarged. There is pulmonary vascular congestion. There is slight blunting of cos tophrenic angles. There are sternal wires. There is left axillary pacemaker with the lead tips in the right ventricle. IMPRESSION: Cardiomegaly. Mild heart failure. Pulmonary congestion is increased compared to old exam .
[2018-04-16 21:59] LABS: Basophils % (A) 1 %; Eosinophils # (A) 0.1 k/uL (0-0.7); Eosinophils % (A) 2 %; HCT 31.4 % (39.0-53.0); HGB 10.1 gm/dL (13.0-17.5); Hypochromasia Slight; Lymphocytes # (A) 1.1 k/uL (1.0-4.8); Lymphocytes % (A) 19 %; MCH 28.1 pg (25.0-35.0); MCHC 32.2 g/dL (31.0-37.0); MCV 87.2 fL (80.0-100.0); Mean Platelet Volume 7.2; Monocytes # (A) 0.4 k/uL (0-1.0); Monocytes % (A) 7 %; Neutrophils # (A) 4.2 k/uL (1.3-7.7); Neutrophils % (A) 70 %; Platelet Count 168 k/uL (150-450); RDW 14.9 % (11.5-15.5); WBC 5.9 k/uL (3.8-10.6)
[2018-04-16 22:03] LABS: Albumin 3.5 g/dL (3.5-5.0); Calcium 8.8 mg/dL (8.4-10.2); INR 1.8 (<1.2); Magnesium 2.2 mg/dL (1.6-2.3); Potassium 3.7 mmol/L (3.5-5.1); Prothrombin Time 16.4 sec (9.0-12.0); Total Bilirubin 0.7 mg/dL (0.2-1.3); Total Protein 6.4 g/dL (6.3-8.2)
[2018-04-16 22:38] LABS: Creatine Kinase MB 0.9 ng/mL (0.0-2.4); Troponin I 0.031 ng/mL (0.000-0.034)
[2018-04-16 23:00] VITALS: BP 108/78; PULSE 67; RESP 18; TEMP 98.5
[2018-04-17] MEDS ORDERED: ASPIRIN 325 MG TAB PO SCH (09:00)
== END 2018-04-16 23:32 | disposition home or self-care (01) ==
LOC: EC 21:11 → UNDOADMOB 21:57 → 6SEL 21:57 → EC 23:32
DX: R07.9 Chest pain, unspecified (principal); R06.02 Shortness of breath; I48.91 Unspecified atrial fibrillation; I25.2 Old myocardial infarction; I50.9 Heart failure, unspecified; I20.9 Angina pectoris, unspecified; I25.5 Ischemic cardiomyopathy; Z85.038 Personal history of other malignant neoplasm of large intestine; Z87.828 Personal history of other (healed) physical injury and trauma; Z95.810 Presence of automatic (implantable) cardiac defibrillator; Z95.5 Presence of coronary angioplasty implant and graft; Z87.891 Personal history of nicotine dependence; Z95.1 Presence of aortocoronary bypass graft; Z90.49 Acquired absence of other specified parts of digestive tract; Z98.890 Other specified postprocedural states; Z79.01 Long term (current) use of anticoagulants; Z79.82 Long term (current) use of aspirin; Z79.899 Other long term (current) drug therapy; Z88.5 Allergy status to narcotic agent; Z88.8 Allergy status to other drugs, medicaments and biological substances
CPT/HCPCS: 36415; 71046; 80053; 82550; 82553; 83735; 84484; 85025; 85610; 85730; 93005; 99285

== ENCOUNTER 2018-12-18 09:47 | Emergency (ER) | payer MEDICARE, OTHER ==
[2018-12-18 10:08] VITALS: RESP 16
[2018-12-18] MEDS ORDERED: SODIUM CHLORIDE 0.9% 500 ML 500 ML IV STA (10:34)
--- NOTE | 2018-12-18 10:46 | ED ---
General Adult HPI - General Chief complaint: Weakness Stated complaint: Urinating blood/weakness Time Seen by Provider: 12/18/18 10:26 Source: patient, RN notes reviewed, old records reviewed Mode of arrival: wheelchair Limitations: no limitations - History of Present Illness Initial comments: 88-year-old male presenting for evaluation generalized weakness. Patient's symptoms have been progressive over the past several weeks. Patient has had intermittent hematuria, no dysuria. He has passed several blood clots. He was previously on Coumadin although he has been off this medication for the past 3 weeks. He reports lightheadedness with standing. Denies current chest pain. He's had intermittent chest pain over the past one year. He was previously history of atrial fibrillation, pacemaker defibrillator. Denies vomiting. No change in appetite. No diarrhea or abdominal pain. No fever or chills. - Related Data Home Medications Medication Instructions Recorded Confirmed Aspirin 81 mg PO DAILY 05/25/14 12/18/18 Atenolol [Tenormin] 25 mg PO BID 05/25/14 12/18/18 Furosemide [Lasix] 40 mg PO DAILY 10/01/17 12/18/18 Pravastatin Sodium [Pravachol] 40 mg PO HS 10/01/17 12/18/18 Isosorbide Mononitrate ER [Imdur] 30 mg PO DAILY 11/22/17 12/18/18 Cholecalciferol [Vitamin D3] 1,000 unit PO DAILY 12/18/18 12/18/18 Docusate [Colace] 100 mg PO DAILY PRN 12/18/18 12/18/18 Ferrous Sulfate [Feosol] 325 mg PO DAILY 12/18/18 12/18/18 Polyethylene Glycol 3350 [Miralax] 17 gm PO DAILY PRN 12/18/18 12/18/18 Vitamin B Complex 1 cap PO DAILY 12/18/18 12/18/18 Previous Rx's Medication Instructions Recorded Cephalexin [Keflex] 500 mg PO Q12HR #20 cap 12/18/18 Allergies Allergy/AdvReac Type Severity Reaction Status Date / Time acetaminophen [From Tylenol] Allergy Rash/Hives Verified 12/18/18 10:22 meperidine HCl [From Demerol] AdvReac Nausea & Verified 12/18/18 10:22 Vomiting Review of Systems ROS Statement: Those systems with pertinent positive or pertinent negative responses have been documented in the HPI. ROS Other: All systems not noted in ROS Statement are negative. 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 Last Myocardial Infarction Date:: 2002 History of Any Multi-Drug Resistant Organisms: None Reported Past Surgical History: Coronary Bypass/CABG, Heart Catheterization With Stent, Hernia Repair, Orthopedic Surgery, Pacemaker, Prostate Surgery Additional Past Surgical History / Comment(s): 10/22/13 AICD, 2006 pacemaker, PCI with stents (3), 2000 CABG 3 vessel, prostate biopsies, bilateral inguinal hernia repair, R knee I&D, L elbow/L chest schrapnel injuries with skin graft to L elbow and L knee, partial colectomy, EGD/colonoscopies. Past Anesthesia/Blood Transfusion Reactions: No Reported Reaction Additional Past Anesthesia/Blood Transfusion Reaction / Comment(s): Pt has received blood before without reaction. Date of Last Stent Placement:: 2002 Type of Cardiac Device: Permanent Pacemaker, AICD Device Placement Date:: 10/22/2013 AICD/ 2006 pacer Past Psychological History: No Psychological Hx Reported Smoking Status: Former smoker Past Alcohol Use History: None Reported Past Drug Use History: None Reported - Past Family History Father Family Medical History: Myocardial Infarction ([place]) Additional Family Medical History / Comment(s): "hardened arteries". Father in his 80s of a [place]. Mother Family Medical History: Myocardial Infarction ([place]) Additional Family Medical History / Comment(s): Mother at the age of 56yrs from a [place]. General Exam Limitations: no limitations General appearance: alert, in no apparent distress, cachectic Head exam: Present: atraumatic, normocephalic ENT exam: Present: mucous membranes dry Respiratory exam: Present: normal lung sounds bilaterally. Absent: respiratory distress, wheezes Cardiovascular Exam: Present: regular rate, normal rhythm GI/Abdominal exam: Present: soft. Absent: distended, tenderness Extremities exam: Present: normal inspection, normal capillary refill. Absent: pedal edema Neurological exam: Present: alert, oriented X3, CN II-XII intact. Absent: motor sensory deficit Psychiatric exam: Present: normal affect, normal mood Skin exam: Present: warm, dry, intact. Absent: cyanosis, diaphoretic Course Vital Signs 12/18/18 12/18/18 12/18/18 10:04 10:30 11:00 Temperature 97.7 F Pulse Rate 61 65 64 Respiratory 16 18 18 Rate Blood Pressure 99/58 124/56 108/61 O2 Sat by Pulse 98 99 100 Oximetry 12/18/18 12/18/18 12/18/18 11:30 12:00 13:20 Temperature 98.3 F Pulse Rate 61 62 Respiratory 16 16 Rate Blood Pressure 109/65 111/53 108/63 O2 Sat by Pulse 100 98 Oximetry EKG Findings - EKG Comments: EKG Findings:: EKG: Atrial fibrillation, left axis deviation, artifact V1, no definitive signs of acute ischemia, no ST segment elevation, rate of 64, QRS duration 128, QTC 503 Medical Decision Making - Medical Decision Making 88 male presenting with generalized weakness, hematuria. Laboratory studies are performed, patient has stable hemoglobin 10.6 from previous 10.1, normal white cell count, a scant normal electrolytes. Normal lactic acid. Urinalysis does show greater than 182 red cells, 11 white cells. Urine culture obtained. Patient given IV hydration, he was given a dose of empiric antibiotics for possible hemorrhagic cystitis. He is offered observation for further evaluation and treatment of hematuria and x-ray findings suggestive of CHF. Patient declines prefers outpatient follow-up. He will be given urology follow-up for hematuria. He will be covered empirically with antibiotics. He will return with worsening or changing symptoms. Chest x-ray shows COPD with concern for CHF, no clinical suspicion for pneumonia at this time, no cough, no dyspnea, no fever, normal white blood cell count. - Lab Data Result diagrams: 12/18/18 11:30 12/18/18 11:30 Lab Results 12/18/18 12/18/18 12/18/18 Range/Units 11:00 11:30 11:30 WBC 6.7 (3.8-10.6) k/uL RBC 3.77 L (4.30-5.90) m/uL Hgb 10.6 L (13.0-17.5) gm/dL Hct 34.1 L (39.0-53.0) % MCV 90.5 (80.0-100.0) fL MCH 28.2 (25.0-35.0) pg MCHC 31.2 (31.0-37.0) g/dL RDW 16.3 H (11.5-15.5) % Plt Count 146 L (150-450) k/uL Neutrophils % 71 % Lymphocytes % 16 % Monocytes % 8 % Eosinophils % 3 % Basophils % 0 % Neutrophils # 4.8 (1.3-7.7) k/uL Lymphocytes # 1.0 (1.0-4.8) k/uL Monocytes # 0.5 (0-1.0) k/uL Eosinophils # 0.2 (0-0.7) k/uL Basophils # 0.0 (0-0.2) k/uL Hypochromasia Moderate Anisocytosis Slight PT (9.0-12.0) sec INR (<1.2) APTT (22.0-30.0) sec Sodium 140 (137-145) mmol/L Potassium 4.2 (3.5-5.1) mmol/L Chloride 102 (98-107) mmol/L Carbon Dioxide 32 H (22-30) mmol/L Anion Gap 6 mmol/L BUN 29 H (9-20) mg/dL Creatinine 1.01 (0.66-1.25) mg/dL Est GFR (CKD-EPI)AfAm 78 (>60 ml/min/1.73 sqM) Est GFR (CKD-EPI)NonAf 67 (>60 ml/min/1.73 sqM) Glucose 92 (74-99) mg/dL Plasma Lactic Acid Srinivas (0.7-2.0) mmol/L Calcium 9.5 (8.4-10.2) mg/dL Magnesium 2.3 (1.6-2.3) mg/dL Total Bilirubin 0.7 (0.2-1.3) mg/dL AST 30 (17-59) U/L ALT 29 (21-72) U/L Alkaline Phosphatase 114 (38-126) U/L Troponin I (0.000-0.034) ng/mL Total Protein 6.5 (6.3-8.2) g/dL Albumin 3.4 L (3.5-5.0) g/dL Urine Color Light Red Urine Appearance Clear (Clear) Urine pH 6.5 (5.0-8.0) Ur Specific [place] 1.015 (1.001-1.035) Urine Protein 1+ H (Negative) Urine Glucose (UA) Negative (Negative) Urine Ketones Negative (Negative) Urine Blood Large H (Negative) Urine Nitrite Negative (Negative) Urine Bilirubin Negative (Negative) Urine Urobilinogen 3.0 (<2.0) mg/dL Ur Leukocyte Esterase Trace H (Negative) Urine RBC >182 H (0-5) /hpf Urine WBC 11 H (0-5) /hpf Urine Mucus Rare H (None) /hpf 12/18/18 12/18/18 12/18/18 Range/Units 11:30 11:30 11:30 WBC (3.8-10.6) k/uL RBC (4.30-5.90) m/uL Hgb (13.0-17.5) gm/dL Hct (39.0-53.0) % MCV (80.0-100.0) fL MCH (25.0-35.0) pg MCHC (31.0-37.0) g/dL RDW (11.5-15.5) % Plt Count (150-450) k/uL Neutrophils % % Lymphocytes % % Monocytes % % Eosinophils % % Basophils % % Neutrophils # (1.3-7.7) k/uL Lymphocytes # (1.0-4.8) k/uL Monocytes # (0-1.0) k/uL Eosinophils # (0-0.7) k/uL Basophils # (0-0.2) k/uL Hypochromasia Anisocytosis PT 10.1 (9.0-12.0) sec INR 0.9 (<1.2) APTT 22.9 (22.0-30.0) sec Sodium (137-145) mmol/L Potassium (3.5-5.1) mmol/L Chloride (98-107) mmol/L Carbon Dioxide (22-30) mmol/L Anion Gap mmol/L BUN (9-20) mg/dL Creatinine (0.66-1.25) mg/dL Est GFR (CKD-EPI)AfAm (>60 ml/min/1.73 sqM) Est GFR (CKD-EPI)NonAf (>60 ml/min/1.73 sqM) Glucose (74-99) mg/dL Plasma Lactic Acid Srinivas 1.2 (0.7-2.0) mmol/L Calcium (8.4-10.2) mg/dL Magnesium (1.6-2.3) mg/dL Total Bilirubin (0.2-1.3) mg/dL AST (17-59) U/L ALT (21-72) U/L Alkaline Phosphatase (38-126) U/L Troponin I 0.016 (0.000-0.034) ng/mL Total Protein (6.3-8.2) g/dL Albumin (3.5-5.0) g/dL Urine Color Urine Appearance (Clear) Urine pH (5.0-8.0) Ur Specific [place] (1.001-1.035) Urine Protein (Negative) Urine Glucose (UA) (Negative) Urine Ketones (Negative) Urine Blood (Negative) Urine Nitrite (Negative) Urine Bilirubin (Negative) Urine Urobilinogen (<2.0) mg/dL Ur Leukocyte Esterase (Negative) Urine RBC (0-5) /hpf Urine WBC (0-5) /hpf Urine Mucus (None) /hpf Disposition Clinical Impression: Hematuria Disposition: HOME SELF-CARE Condition: Fair Instructions (If sedation given, give patient instructions): Hematuria (ED) Prescriptions: Cephalexin [Keflex] 500 mg PO Q12HR #20 cap Is patient prescribed a controlled substance at d/c from ED?: No Referrals: Valentin Mir MD [Primary Care Provider] - 1-2 days Time of Disposition: 12:12
[2018-12-18 11:49] LABS: Anisocytosis Slight; Basophils % (A) 0 %; Eosinophils # (A) 0.2 k/uL (0-0.7); Eosinophils % (A) 3 %; HCT 34.1 % (39.0-53.0); HGB 10.6 gm/dL (13.0-17.5); Hypochromasia Moderate; Lymphocytes % (A) 16 %; MCH 28.2 pg (25.0-35.0); MCHC 31.2 g/dL (31.0-37.0); MCV 90.5 fL (80.0-100.0); Mean Platelet Volume 7.2; Monocytes # (A) 0.5 k/uL (0-1.0); Monocytes % (A) 8 %; Neutrophils # (A) 4.8 k/uL (1.3-7.7); Neutrophils % (A) 71 %; Platelet Count 146 k/uL (150-450); RBC 3.77 m/uL (4.30-5.90); RDW 16.3 % (11.5-15.5); WBC 6.7 k/uL (3.8-10.6)
[2018-12-18 11:59] LABS: Appearance,Urine Clear (Clear); Bilirubin,Urine Negative (Negative); Blood,Urine Large (Negative); Color,Urine Light Red; Glucose,Urine (UA) Negative (Negative); Ketones,Urine Negative (Negative); Leukocyte Esterase,Urine Trace (Negative); Mucus,Urine Rare /hpf; Nitrite,Urine Negative (Negative); PH, Urine 6.5 (5.0-8.0); Protein,Urine 1+ (Negative); RBC,Urine >182 /hpf (0-5); Specific Gravity,Urine 1.015 (1.001-1.035); WBC,Urine 11 /hpf (0-5)
[2018-12-18 12:02] LABS: Albumin 3.4 g/dL (3.5-5.0); Calcium 9.5 mg/dL (8.4-10.2); Magnesium 2.3 mg/dL (1.6-2.3); Potassium 4.2 mmol/L (3.5-5.1); Total Bilirubin 0.7 mg/dL (0.2-1.3); Total Protein 6.5 g/dL (6.3-8.2)
[2018-12-18 12:06] LABS: INR 0.9 (<1.2); Partial Thromboplastin Time 22.9 sec (22.0-30.0); Prothrombin Time 10.1 sec (9.0-12.0)
--- NOTE | 2018-12-18 12:19 | XR ---
EXAMINATION TYPE: XR chest 2V DATE OF EXAM: 12/18/2018 COMPARISON: 04/16/2018 TECHNIQUE: PA and lateral views submitted. HISTORY: Weakness FINDINGS: Hyperinflation compatible COPD and there is a cardiac device with postsurgical changes and epicardial lead. Diffuse interstitial pattern seen. Diffuse osteopenia. Biapical pleural thickening with basila r consolidation and small effusion. Degenerative change of the spine. IMPRESSION: 1. COPD with superimposed CHF favored over pneumonia correlate clinically.
[2018-12-18] MEDS ORDERED: cefTRIAXone IN SWFI 1,000 MG/10 ML SYRINGE IVP STA (12:32)
[2018-12-18 13:21] VITALS: TEMP 98.3
[2018-12-18 14:26] VITALS: BP 114/63; PULSE 67
== END 2018-12-18 14:35 | disposition home or self-care (01) ==
LOC: EC 09:47
DX: R31.9 Hematuria, unspecified (principal); R53.1 Weakness; J44.9 Chronic obstructive pulmonary disease, unspecified; R42 Dizziness and giddiness; I48.91 Unspecified atrial fibrillation; I50.9 Heart failure, unspecified; I25.2 Old myocardial infarction; M19.90 Unspecified osteoarthritis, unspecified site; D64.9 Anemia, unspecified; Z87.891 Personal history of nicotine dependence; Z88.5 Allergy status to narcotic agent; Z88.6 Allergy status to analgesic agent; Z79.82 Long term (current) use of aspirin; Z79.899 Other long term (current) drug therapy; Z95.0 Presence of cardiac pacemaker; Z95.1 Presence of aortocoronary bypass graft; Z95.5 Presence of coronary angioplasty implant and graft; Z85.46 Personal history of malignant neoplasm of prostate; Z92.3 Personal history of irradiation; Z85.038 Personal history of other malignant neoplasm of large intestine; Z90.49 Acquired absence of other specified parts of digestive tract; Z98.890 Other specified postprocedural states; Z82.49 Family history of ischemic heart disease and other diseases of the circulatory system; Z53.20 Procedure and treatment not carried out because of patient's decision for unspecified reasons
CPT/HCPCS: 36415; 93005; 80053; 83605; 83735; 84484; 85025; 85610; 85730; 81001; 87040; 87086; 71046; 99285; 96374; 96361; J0696

== ENCOUNTER 2019-05-17 14:18 | Inpatient (IN) | payer MEDICARE, OTHER ==
[2019-05-17] MEDS ORDERED: ASPIRIN 81 MG PO STA (14:58)
[2019-05-17] MEDS ORDERED: NITROGLYCERIN OINT 1 INCH/GM PACKET TOPICAL STA (14:58)
--- NOTE | 2019-05-17 14:59 | ED ---
General Adult HPI - General Chief complaint: Chest Pain Stated complaint: Chest pain/DEBBIE Time Seen by Provider: 05/17/19 14:41 Source: patient, RN notes reviewed Mode of arrival: wheelchair Limitations: no limitations - History of Present Illness Initial comments: Patient is a pleasant 89-year-old male presenting to the emergency Department with complaints of chest discomfort. Onset of symptoms was last night. Symptoms have been waxing and waning since that time. Discomfort feels somewhat sharp. Discomfort is fairly resolved at this point. Patient has had some associated dyspnea. No nausea or diaphoresis. Patient has had previous problems associated with cardiac in the past. No leg pain or leg swelling. - Related Data Home Medications Medication Instructions Recorded Confirmed Aspirin 81 mg PO DAILY 05/25/14 05/17/19 Atenolol [Tenormin] 25 mg PO BID 05/25/14 05/17/19 Furosemide [Lasix] 40 mg PO DAILY 10/01/17 05/17/19 Pravastatin Sodium [Pravachol] 40 mg PO HS 10/01/17 05/17/19 Isosorbide Mononitrate ER [Imdur] 30 mg PO DAILY 11/22/17 05/17/19 Cholecalciferol [Vitamin D3] 1,000 unit PO HS 12/18/18 05/17/19 Ferrous Sulfate [Feosol] 325 mg PO DAILY 12/18/18 05/17/19 Vitamin B Complex 1 cap PO DAILY 12/18/18 05/17/19 Ativan (Unknown Dose) 0.5 tab PO HS PRN 05/17/19 05/17/19 Lisinopril [Zestril] 2.5 mg PO HS 05/17/19 05/17/19 Warfarin [Coumadin] 2.5 mg PO HS 05/17/19 05/17/19 Allergies Allergy/AdvReac Type Severity Reaction Status Date / Time acetaminophen [From Tylenol] Allergy Rash/Hives Verified 05/17/19 14:44 meperidine HCl [From Demerol] AdvReac Nausea & Verified 05/17/19 14:44 Vomiting Review of Systems ROS Statement: Those systems with pertinent positive or pertinent negative responses have been documented in the HPI. ROS Other: All systems not noted in ROS Statement are negative. Constitutional: Denies: fever Eyes: Denies: eye pain ENT: Denies: ear pain Respiratory: Reports: as per HPI Cardiovascular: Reports: chest pain Endocrine: Denies: fatigue Gastrointestinal: Denies: abdominal pain Genitourinary: Denies: dysuria Musculoskeletal: Denies: back pain Skin: Denies: rash Neurological: Denies: weakness Past Medical History Past Medical History: Atrial Fibrillation, Cancer, Chest Pain / Angina, Heart Failure, GI Bleed, Myocardial Infarction ([place]), Osteoarthritis (OA), Pneumonia, Prostate Disorder, Renal Disease Additional Past Medical History / Comment(s): Ischemic cardiomyopathy, mitral regurgitation, 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 Last Myocardial Infarction Date:: 2002 History of Any Multi-Drug Resistant Organisms: None Reported Past Surgical History: Coronary Bypass/CABG, Heart Catheterization With Stent, Hernia Repair, Orthopedic Surgery, Pacemaker, Prostate Surgery Additional Past Surgical History / Comment(s): 10/22/13 AICD, 2006 pacemaker, PCI with stents (3), 2000 CABG 3 vessel, prostate biopsies, bilateral inguinal hernia repair, R knee I&D, L elbow/L chest schrapnel injuries with skin graft to L elbow and L knee, partial colectomy, EGD/colonoscopies. Past Anesthesia/Blood Transfusion Reactions: No Reported Reaction Additional Past Anesthesia/Blood Transfusion Reaction / Comment(s): Pt has received blood before without reaction. Date of Last Stent Placement:: 2002 Type of Cardiac Device: Permanent Pacemaker, AICD Device Placement Date:: 10/22/2013 AICD/ 2006 pacer Past Psychological History: No Psychological Hx Reported Smoking Status: Former smoker Past Alcohol Use History: None Reported Past Drug Use History: None Reported - Past Family History Father Family Medical History: Myocardial Infarction ([place]) Additional Family Medical History / Comment(s): "hardened arteries". Father in his 80s of a [place]. Mother Family Medical History: Myocardial Infarction ([place]) Additional Family Medical History / Comment(s): Mother at the age of 56yrs from a [place]. General Exam Limitations: no limitations General appearance: alert, in no apparent distress Head exam: Present: atraumatic Eye exam: Present: normal appearance, PERRL ENT exam: Present: normal oropharynx Neck exam: Present: normal inspection Respiratory exam: Present: normal lung sounds bilaterally. Absent: chest wall tenderness Cardiovascular Exam: Present: irregular rhythm Expanded Peripheral pulses: 2+: Radial (R), Radial (L), Dorsalis Pedis (R), Dorsalis Pedis (L) GI/Abdominal exam: Present: soft. Absent: tenderness Extremities exam: Present: pedal edema (Trace bilateral). Absent: calf tenderness Neurological exam: Present: alert Psychiatric exam: Present: normal affect, normal mood Skin exam: Present: normal color Course Vital Signs 05/17/19 14:19 Temperature 97.4 F L Pulse Rate 76 Respiratory 18 Rate Blood Pressure 116/74 O2 Sat by Pulse 95 Oximetry EKG Findings - EKG Comments: EKG Findings:: A flutter with rate of 81. QRS 132. QT 4:30. QTC 499. Left axis. PVC is present. Nonspecific intraventricular conduction delay. Nonspecific ST-T. Medical Decision Making - Medical Decision Making Patient reevaluated and resting comfortably in bed. Patient and family updated on results and plan. Case was discussed in detail with Dr. Ta, covering for Dr. Mir, who will admit. - Lab Data Result diagrams: 05/17/19 14:50 05/17/19 14:50 Lab Results 05/17/19 05/17/19 05/17/19 Range/Units 14:50 14:50 14:50 WBC 9.4 (3.8-10.6) k/uL RBC 3.81 L (4.30-5.90) m/uL Hgb 11.1 L (13.0-17.5) gm/dL Hct 34.2 L (39.0-53.0) % MCV 89.7 (80.0-100.0) fL MCH 29.2 (25.0-35.0) pg MCHC 32.5 (31.0-37.0) g/dL RDW 16.9 H (11.5-15.5) % Plt Count 171 (150-450) k/uL Neutrophils % 80 % Lymphocytes % 10 % Monocytes % 6 % Eosinophils % 3 % Basophils % 0 % Neutrophils # 7.5 (1.3-7.7) k/uL Lymphocytes # 0.9 L (1.0-4.8) k/uL Monocytes # 0.6 (0-1.0) k/uL Eosinophils # 0.3 (0-0.7) k/uL Basophils # 0.0 (0-0.2) k/uL Hypochromasia Slight Anisocytosis Slight PT (9.0-12.0) sec INR (<1.2) APTT (22.0-30.0) sec Sodium 139 (137-145) mmol/L Potassium 4.8 (3.5-5.1) mmol/L Chloride 102 (98-107) mmol/L Carbon Dioxide 26 (22-30) mmol/L Anion Gap 11 mmol/L BUN 25 H (9-20) mg/dL Creatinine 0.89 (0.66-1.25) mg/dL Est GFR (CKD-EPI)AfAm 89 (>60 ml/min/1.73 sqM) Est GFR (CKD-EPI)NonAf 77 (>60 ml/min/1.73 sqM) Glucose 107 H (74-99) mg/dL Calcium 9.7 (8.4-10.2) mg/dL Magnesium 2.0 (1.6-2.3) mg/dL Total Bilirubin 1.4 H (0.2-1.3) mg/dL AST 68 H (17-59) U/L ALT 44 (21-72) U/L Alkaline Phosphatase 129 H (38-126) U/L Creatine Kinase 76 (55-170) U/L Troponin I (0.000-0.034) ng/mL NT-Pro-B Natriuret Pep 5090 pg/mL Total Protein 7.5 (6.3-8.2) g/dL Albumin 3.9 (3.5-5.0) g/dL 05/17/19 05/17/19 Range/Units 14:50 14:50 WBC (3.8-10.6) k/uL RBC (4.30-5.90) m/uL Hgb (13.0-17.5) gm/dL Hct (39.0-53.0) % MCV (80.0-100.0) fL MCH (25.0-35.0) pg MCHC (31.0-37.0) g/dL RDW (11.5-15.5) % Plt Count (150-450) k/uL Neutrophils % % Lymphocytes % % Monocytes % % Eosinophils % % Basophils % % Neutrophils # (1.3-7.7) k/uL Lymphocytes # (1.0-4.8) k/uL Monocytes # (0-1.0) k/uL Eosinophils # (0-0.7) k/uL Basophils # (0-0.2) k/uL Hypochromasia Anisocytosis PT 22.1 H (9.0-12.0) sec INR 2.3 H (<1.2) APTT 35.1 H (22.0-30.0) sec Sodium (137-145) mmol/L Potassium (3.5-5.1) mmol/L Chloride (98-107) mmol/L Carbon Dioxide (22-30) mmol/L Anion Gap mmol/L BUN (9-20) mg/dL Creatinine (0.66-1.25) mg/dL Est GFR (CKD-EPI)AfAm (>60 ml/min/1.73 sqM) Est GFR (CKD-EPI)NonAf (>60 ml/min/1.73 sqM) Glucose (74-99) mg/dL Calcium (8.4-10.2) mg/dL Magnesium (1.6-2.3) mg/dL Total Bilirubin (0.2-1.3) mg/dL AST (17-59) U/L ALT (21-72) U/L Alkaline Phosphatase (38-126) U/L Creatine Kinase (55-170) U/L Troponin I 0.013 (0.000-0.034) ng/mL NT-Pro-B Natriuret Pep pg/mL Total Protein (6.3-8.2) g/dL Albumin (3.5-5.0) g/dL - Radiology Data Radiology results: image reviewed (Chest x-ray shows some interstitial prom inence concerning for CHF.) Disposition Clinical Impression: Congestive heart failure Disposition: ADMITTED IP TO THIS HOSP Is patient prescribed a controlled substance at d/c from ED?: No Referrals: Valentin Mir MD [Primary Care Provider] - 1-2 days Decision Time: 16:33
[2019-05-17 15:19] LABS: Anisocytosis Slight; Basophils % (A) 0 %; Eosinophils # (A) 0.3 k/uL (0-0.7); Eosinophils % (A) 3 %; HCT 34.2 % (39.0-53.0); HGB 11.1 gm/dL (13.0-17.5); Hypochromasia Slight; Lymphocytes # (A) 0.9 k/uL (1.0-4.8); Lymphocytes % (A) 10 %; MCH 29.2 pg (25.0-35.0); MCHC 32.5 g/dL (31.0-37.0); MCV 89.7 fL (80.0-100.0); Mean Platelet Volume 7.7; Monocytes # (A) 0.6 k/uL (0-1.0); Monocytes % (A) 6 %; Neutrophils # (A) 7.5 k/uL (1.3-7.7); Neutrophils % (A) 80 %; Platelet Count 171 k/uL (150-450); RBC 3.81 m/uL (4.30-5.90); RDW 16.9 % (11.5-15.5); WBC 9.4 k/uL (3.8-10.6)
[2019-05-17 15:20] LABS: INR 2.3 (<1.2); Partial Thromboplastin Time 35.1 sec (22.0-30.0); Prothrombin Time 22.1 sec (9.0-12.0)
[2019-05-17 15:25] LABS: Albumin 3.9 g/dL (3.5-5.0); Calcium 9.7 mg/dL (8.4-10.2); Potassium 4.8 mmol/L (3.5-5.1); Total Bilirubin 1.4 mg/dL (0.2-1.3); Total Protein 7.5 g/dL (6.3-8.2)
--- NOTE | 2019-05-17 15:32 | XR ---
EXAMINATION TYPE: XR chest 2V DATE OF EXAM: 05/17/2019 COMPARISON: Chest x-ray December 18, 2018. HISTORY: Stabbing chest pain. TECHNIQUE: Frontal and lateral views of the chest are obtained. FINDINGS: Post-CABG changes with mediastinal clips and sternal wires is present. There is cardiomega ly with multilead pacemaker/ICD. There is chronic parenchymal change with bibasilar opacities. Osseou s structures are intact. IMPRESSION: Correlate for CHF exacerbation of background chronic emphysematous change as there is ca rdiomegaly with small bilateral pleural effusions that are present.
[2019-05-17] MEDS ORDERED: ASPIRIN 325 MG TAB PO STA (16:33)
[2019-05-17] MEDS ORDERED: ATIVAN PO PRN (16:35)
--- NOTE | 2019-05-17 16:35 | P.HPIM ---
History of Present Illness H&P Date: 05/17/19 Chief Complaint: Chest pain 89-year-old male with PMH of atrial fibrillation, CHF post AICD and pacemaker, CAD post CABG, bladder cancer follows Dr. Wilkerson presents to the ED for chest pain. Patient reports chest pain that started yesterday as he was sitting and watching TV. Pain is constant lasting 5 minutes at a time. Patient describes the pain as knifelike and stabbing in nature. Pain is located in the left side of the chest and occasionally radiates to the midline. Pain is 10 out of 10 in severity. Patient reports no aggravating or alleviating factors. Patient reports being evaluated for chest pain in the past, was told it was muscle spasms, but got worried because this pain was increased in intensity. Patient also reports some shortness of breath only with the chest pain. He denies any headache, lower extremity edema, nausea or vomiting, fever or chills, palpitations, changes in urination or bowel habits. No changes in appetite or weight. Patient denies dizziness, numbness/weakness/tingling of extremities. In the ED, his vital signs were stable. CBC showed anemia with hemoglobin of 11.1. Coagulation panel shows INR 2.3. CMP shows BUN of 25, glucose of 107, total bilirubin of 1.4, AST 68, alkaline phosphatase 129. Troponin was 0.013, EKG showing atrial flutter with variable AV block. BNP was 5090, chest x-ray showing CHF exacerbation and small bilateral pleural effusion. Patient is admitted for chest pain, rule out acute coronary syndrome, cardiology consulted. Review of Systems Pertinent positives and negatives as discussed in HPI, a complete review of systems was performed and all other systems are negative. 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 Last Myocardial Infarction Date:: 2002 History of Any Multi-Drug Resistant Organisms: None Reported Past Surgical History: Coronary Bypass/CABG, Heart Catheterization With Stent, Hernia Repair, Orthopedic Surgery, Pacemaker, Prostate Surgery Additional Past Surgical History / Comment(s): 10/22/13 AICD, 2006 pacemaker, PCI with stents (3), 2000 CABG 3 vessel, prostate biopsies, bilateral inguinal hernia repair, R knee I&D, L elbow/L chest schrapnel injuries with skin graft to L elbow and L knee, partial colectomy, EGD/colonoscopies. Past Anesthesia/Blood Transfusion Reactions: No Reported Reaction Additional Past Anesthesia/Blood Transfusion Reaction / Comment(s): Pt has received blood before without reaction. Date of Last Stent Placement:: 2002 Type of Cardiac Device: Permanent Pacemaker, AICD Device Placement Date:: 10/22/2013 AICD/ 2006 pacer Past Psychological History: No Psychological Hx Reported Smoking Status: Former smoker Past Alcohol Use History: None Reported Past Drug Use History: None Reported - Past Family History Father Family Medical History: Myocardial Infarction ([place]) Additional Family Medical History / Comment(s): "hardened arteries". Father in his 80s of a [place]. Mother Family Medical History: Myocardial Infarction ([place]) Additional Family Medical History / Comment(s): Mother at the age of 56yrs from a [place]. Medications and Allergies Home Medications Medication Instructions Recorded Confirmed Type Aspirin 81 mg PO DAILY 05/25/14 05/17/19 History Atenolol [Tenormin] 25 mg PO BID 05/25/14 05/17/19 History Furosemide [Lasix] 40 mg PO DAILY 10/01/17 05/17/19 History Pravastatin Sodium [Pravachol] 40 mg PO HS 10/01/17 05/17/19 History Isosorbide Mononitrate ER [Imdur] 30 mg PO DAILY 11/22/17 05/17/19 History Cholecalciferol [Vitamin D3] 1,000 unit PO HS 12/18/18 05/17/19 History Ferrous Sulfate [Feosol] 325 mg PO DAILY 12/18/18 05/17/19 History Vitamin B Complex 1 cap PO DAILY 12/18/18 05/17/19 History Ativan (Unknown Dose) 0.5 tab PO HS PRN 05/17/19 05/17/19 History Lisinopril [Zestril] 2.5 mg PO HS 05/17/19 05/17/19 History Warfarin [Coumadin] 2.5 mg PO HS 05/17/19 05/17/19 History Allergies Allergy/AdvReac Type Severity Reaction Status Date / Time acetaminophen [From Tylenol] Allergy Rash/Hives Verified 05/17/19 14:44 meperidine HCl [From Demerol] AdvReac Nausea & Verified 05/17/19 14:44 Vomiting Physical Exam Vitals: Vital Signs Temp Pulse Resp BP Pulse Ox 05/17/19 14:19 97.4 F L 76 18 116/74 95 Intake and Output 05/17/19 05/17/19 05/17/19 06:59 14:59 22:59 Other: Weight 53.07 kg General: [non toxic], [no distress], [appears at stated age] Derm: [warm], [dry] Head: [atraumatic], [normocephalic], [symmetric] Eyes: [EOMI], [no lid lag], [anicteric sclera] Mouth: [no lip lesion], [mucus membranes moist] Cardiovascular: [S1S2 reg], [irregularly regular], [positive DP pulse bilateral], Lungs: [Decreased breath sounds bilateral], [no rhonchi, no rales] , [no access ory muscle use] Abdominal: [soft], [ nontender to palpation], [no guarding], [no appreciable organomegaly] Ext: [no gross muscle atrophy], [mild pedal edema], [no contractures] Neuro: [ CN II-XI grossly intact], [no focal neuro deficits] Psych: [Alert], [oriented], [appropriate affect] Results CBC & Chem 7: 05/17/19 14:50 05/17/19 14:50 Labs: Abnormal Lab Results - Last 24 Hours (Table) 05/17/19 05/17/19 05/17/19 Range/Units 14:50 14:50 14:50 RBC 3.81 L (4.30-5.90) m/uL Hgb 11.1 L (13.0-17.5) gm/dL Hct 34.2 L (39.0-53.0) % RDW 16.9 H (11.5-15.5) % Lymphocytes # 0.9 L (1.0-4.8) k/uL PT 22.1 H (9.0-12.0) sec INR 2.3 H (<1.2) APTT 35.1 H (22.0-30.0) sec BUN 25 H (9-20) mg/dL Glucose 107 H (74-99) mg/dL Total Bilirubin 1.4 H (0.2-1.3) mg/dL AST 68 H (17-59) U/L Alkaline Phosphatase 129 H (38-126) U/L Assessment and Plan Assessment: Assessment and Plan Chest pain, atypical with risk factors for ACS Acute on chronic systolic CHF exacerbation with EF 35-40% post AICD and pacemaker Atrial fibrillation Bladder cancer Elevated BUN Elevated liver enzymes Troponin 0.013, EKG showing atrial flutter with variable AV block. Plans: Trend troponin/EKG to rule out ACS. Continue aspirin, pravastatin and atenolol. Pain control with Tylenol, [place] or morphine as needed. Will order echocardiogram. Telemetry monitoring. Follow cardiology consultation. BNP 5090 with chest x-ray showing findings consistent with CHF. Plans: Start diuresis with Lasix 40 mg IV twice a day. Restart lisinopril and atenolol. Strict intake and output. Daily weights. Follow echocardiogram. Follow-up cardiology consultation. Plans: Restart atenolol for rate control. Restart Coumadin for anticoagulation. Plans: Need adequate follow-up with Dr. Plummer on discharge. BUN 25. Creatinine within normal limits. Likely due to dehydration. Plans: Daily BMP. Avoid nephrotoxins. Encourage hydration by mouth. Caution with hydration due to chest x-ray findings. Total bilirubin 1.4, AST 68, alkaline phosphatase 129. Unknown cause. Plans: Repeat CMP in the morning. Will consider ultrasound of gallbladder and liver if persistently elevated. DVT prophylaxis: [SCD boots] Discussed with: [Patient and ] Anticipated discharge: [1-2 days] Anticipated discharge place: [Home] A total of [45] minutes was spent on the care of this complex patient more than 50% of the time was spent in counseling and care coordination. Patient is admitted for greater than 48 hour stay for chest pain, rule out acute coronary syndrome and acute on chronic systolic CHF. Cardiology is on consult. Patient names his Darlene decision-maker indicates that he can't make decisions for himself. Patient reiterates wanting to remain full code at this time.
[2019-05-17] MEDS ORDERED: ACETAMINOPHEN TAB 325 MG TAB PO PRN (16:38)
[2019-05-17] MEDS ORDERED: NALOXONE 0.4 MG/ML 1 ML VIAL IV PRN (16:38)
[2019-05-17] MEDS ORDERED: MORPHINE SULFATE 2 MG/ML SYRINGE IV PRN (16:38)
[2019-05-17] MEDS ORDERED: HYDROcodone/APAP 5-325MG 1 EACH TAB PO PRN (16:38)
[2019-05-17] MEDS: FUROSEMIDE 10 MG/ML 4 ML VIAL IV SCH (17:41)
[2019-05-17] MEDS: WARFARIN 2.5 MG TAB PO SCH (21:29)
[2019-05-17] MEDS: PRAVASTATIN SODIUM 40 MG TAB PO SCH (21:29)
[2019-05-17] MEDS: CHOLECALCIFEROL 1,000 UNIT TAB PO SCH (21:29)
[2019-05-17] MEDS: LISINOPRIL 2.5 MG TAB PO SCH (21:29)
[2019-05-17] MEDS: ATENOLOL 25 MG TAB PO SCH (21:29)
[2019-05-17] MEDS: NITROGLYCERIN OINT 1 INCH/GM PACKET TOPICAL SCH ×2 (21:30→22:15)
[2019-05-18] MEDS: FUROSEMIDE 10 MG/ML 4 ML VIAL IV SCH ×2 (01:25→10:08)
[2019-05-18 02:33] LABS: Anisocytosis Slight; Basophils % (A) 0 %; Eosinophils # (A) 0.2 k/uL (0-0.7); Eosinophils % (A) 3 %; HGB 10.9 gm/dL (13.0-17.5); Lymphocytes # (A) 0.7 k/uL (1.0-4.8); Lymphocytes % (A) 8 %; MCHC 31.2 g/dL (31.0-37.0); MCV 89.7 fL (80.0-100.0); Mean Platelet Volume 7.3; Monocytes # (A) 0.4 k/uL (0-1.0); Monocytes % (A) 6 %; Neutrophils # (A) 6.5 k/uL (1.3-7.7); Neutrophils % (A) 82 %; Platelet Count 144 k/uL (150-450); RBC 3.91 m/uL (4.30-5.90); RDW 16.8 % (11.5-15.5); WBC 7.9 k/uL (3.8-10.6)
[2019-05-18 02:39] LABS: INR 2.4 (<1.2); Prothrombin Time 23.4 sec (9.0-12.0)
[2019-05-18 02:48] LABS: Albumin 3.7 g/dL (3.5-5.0); Calcium 9.3 mg/dL (8.4-10.2); Potassium 4.1 mmol/L (3.5-5.1); Total Bilirubin 1.6 mg/dL (0.2-1.3)
[2019-05-18] MEDS ORDERED: ASPIRIN 325 MG TAB PO SCH (09:00)
[2019-05-18] MEDS: ATENOLOL 25 MG TAB PO SCH ×2 (10:08→20:56)
[2019-05-18] MEDS: FERROUS SULFATE 325 MG TAB PO SCH (10:08)
[2019-05-18] MEDS: ASPIRIN 81 MG PO SCH (10:08)
[2019-05-18] MEDS: ISOSORBIDE MONONITRATE ER 30 MG TAB.ER.24H PO SCH (10:08)
--- NOTE | 2019-05-18 11:10 | P.PN ---
Subjective Progress Note Date: 05/18/19 Principal diagnosis: CHF exacerbation Patient was seen and examined. No acute events overnight. Patient reports considerable improvement in his breathing since admission. Chest pain is completely resolved. He denies any chest, shortness of breath or palpitations. No nausea or vomiting. No fever or chills. is at bedside. Objective - Vital Signs Vital signs: Vital Signs Temp 98.2 F 05/18/19 08:00 Pulse 61 05/18/19 10:00 Resp 16 05/18/19 08:00 BP 113/61 05/18/19 10:00 Pulse Ox 96 05/18/19 08:00 Intake & Output 05/17/19 05/18/19 05/18/19 18:59 06:59 18:59 Output Total 1000 Balance -1000 Weight 53.07 kg 50.6 kg Output: Urine 1000 Other: Voiding Method Urinal Urinal # Voids 1 - Exam General: [non toxic], [no distress], [appears at stated age] Derm: [warm], [dry] Head: [atraumatic], [normocephalic], [symmetric] Eyes: [EOMI], [no lid lag], [anicteric sclera] Mouth: [no lip lesion], [mucus membranes moist] Cardiovascular: [S1S2 reg], [no murmur], [positive DP pulse bilateral], Lungs: [Clear to auscultation bilateral], [no rhonchi, no rales] , [no accessory muscle use] Abdominal: [soft], [ nontender to palpation], [no guarding], [no appreciable organomegaly] Ext: [no gross muscle atrophy], [mild pedal edema], [no contractures] Neuro: [no focal neuro deficits] Psych: [Alert], [oriented], [appropriate affect] - Labs CBC & Chem 7: 05/18/19 02:19 05/18/19 02:19 Labs: Abnormal Lab Results - Last 24 Hours (Table) 05/17/19 05/17/19 05/17/19 Range/Units 14:50 14:50 14:50 RBC 3.81 L (4.30-5.90) m/uL Hgb 11.1 L (13.0-17.5) gm/dL Hct 34.2 L (39.0-53.0) % RDW 16.9 H (11.5-15.5) % Plt Count (150-450) k/uL Lymphocytes # 0.9 L (1.0-4.8) k/uL PT 22.1 H (9.0-12.0) sec INR 2.3 H (<1.2) APTT 35.1 H (22.0-30.0) sec BUN 25 H (9-20) mg/dL Glucose 107 H (74-99) mg/dL Total Bilirubin 1.4 H (0.2-1.3) mg/dL AST 68 H (17-59) U/L Alkaline Phosphatase 129 H (38-126) U/L 05/18/19 05/18/19 05/18/19 Range/Units 02:19 02:19 02:19 RBC 3.91 L (4.30-5.90) m/uL Hgb 10.9 L (13.0-17.5) gm/dL Hct 35.0 L (39.0-53.0) % RDW 16.8 H (11.5-15.5) % Plt Count 144 L (150-450) k/uL Lymphocytes # 0.7 L (1.0-4.8) k/uL PT 23.4 H (9.0-12.0) sec INR 2.4 H (<1.2) APTT (22.0-30.0) sec BUN 28 H (9-20) mg/dL Glucose 112 H (74-99) mg/dL Total Bilirubin 1.6 H (0.2-1.3) mg/dL AST (17-59) U/L Alkaline Phosphatase (38-126) U/L Assessment and Plan Assessment: Assessment and Plan Chest pain, atypical with risk factors for ACS Acute on chronic systolic CHF exacerbation with EF 35-40% post AICD and pacemaker Atrial fibrillation Bladder cancer Elevated BUN Elevated liver enzymes Troponin 0.013, 0.023, 0.02, EKG showing atrial flutter with variable AV block. ACS ruled out. Plans: Continue aspirin, pravastatin and atenolol. Pain control with Tylenol, [place] or morphine as needed. Follow echocardiogram. Telemetry monitoring. Follow cardiology consultation. BNP 5090 with chest x-ray showing findings consistent with CHF. Plans: We'll decrease Lasix from 40 g IV 3 times a day to twice a day. Continue lisinopril and atenolol. Strict intake and output. Daily weights. Follow echocardiogram. Follow-up cardiology consultation. Plans: Continue atenolol for rate control. Continue Coumadin for anticoagulation. Plans: Need adequate follow-up with Dr. Plummer on discharge. BUN 25-28. Creatinine within normal limits. Likely due to dehydration and forced diuresis. Plans: Daily BMP. Avoid nephrotoxins. Encourage hydration by mouth. Caution with hydration due to chest x-ray findings. Total bilirubin 1.4-1.6, AST 68-within normal limits, alkaline phosphatase 129- within normal limits. Likely from dehydration. Plans: Improving. Needs ad equate follow-up in the outpatient setting. [Patient is admitted for chest pain, ACS is ruled out. Found to have CHF exacerbation, continue IV diuresis for 1 more day, discussed with Taisha KELLY. Follow echocardiogram. Likely DC tomorrow.]
--- NOTE | 2019-05-18 12:07 | P.CRDCN ---
History of Present Illness History of present illness: This is a pleasant 89-year-old male past medical history significant for coronary artery disease status post bypass grafting, ischemic cardiomyopathy status post AICD implantation, hypertension, dyslipidemia, chronic persistent atrial fibrillation and chronic systolic heart failure. He follows in the office with Dr. Silver. We have been asked to see him in consultation secondary to shortness of breath. He presented to the hospital with symptoms of shortness of breath that started 2 nights ago. He states he was unable to get any sleep due to significant shortness of breath as well as a sharp pain in the midsternal region that was worse with deep inspiration. He denies any anginal chest discomfort, dizziness or palpitations. He is seen and examined laying flat in no acute distress. He had been initiated on IV Lasix in the emergency department. EKG on arrival reveals atrial fibrillation heart rate of 81, left axis deviation, LVH, PVCs and T-wave inversions in the lateral leads. Chest x- ray reveals chronic of the somatic changes, cardiomegaly and small bilateral pleural effusions. Laboratory data reviewed, WBC 7.9, hemoglobin 10.9, platelets 144, INR 2.4, sodium 137, potassium 4.1, creatinine 1.07, magnesium 2.0, cardiac enzymes negative 3, and T proBNP 5090. Current daily cardiac medications include aspirin 81 mg daily, atenolol 25 mg twice a day, Lasix 40 mg daily, Imdur 30 mg daily, lisinopril 2.5 mg daily, pravastatin 40 mg daily and Coumadin 2.5 mg at bedtime. Most recent echocardiogram obtained November 2017 reveals impaired LV systolic function with ejection fraction 35-40%, moderate to severe mitral regurgitation, mild tricuspid regurgitation and moderate pulmonary hypertension. At the time of my exam: CONSTITUTIONAL: Denies fever. Denies chills. EYES: Denies blurred vision. Denies vision changes. Denies eye pain. EARS, NOSE, MOUTH & THROAT: Denies headache. Denies sore throat. Denies ear pain. CARDIOVASCULAR: Denies chest pain. Denies shortness of breath. Denies orthopnea. Denies PND. Denies palpitations. RESPIRATORY: Denies cough. GASTROINTESTINAL: Denies abdominal pain. Denies diarrhea. Denies constipation. Denies nausea. Denies vomiting. MUSCULOSKELETAL: Denies myalgias. INTEGUMENTARY: Denies pruitis. Denies rash. NEUROLOGIC: Denies numbness. Denies tingling. Denies weakness. PSYCHIATRIC: Denies anxiety. Denies depression. ENDOCRINE: Denies fatigue. Denies weight change. Denies polydipsia. Denies polyurina. GENITOURINARY: Denies burning, hematuria or urgency with micturation. HEMATOLOGIC: Denies history of anemia. Denies bleeding. Blood pressure 113/61 heart rate 61 afebrile maintaining oxygen saturation on room air GENERAL: This is a 89-year-old male in no apparent distress at the time of my examination. Frail. HEENT: Head is atraumatic, normocephalic. Pupils are equal, round. Sclerae anicteric. Conjunctivae are clear. Mucous membranes of the mouth are moist. Neck is supple. There is no jugular venous distention. No carotid bruit is heard. LUNGS: Bibasilar rales, no rhonchi or wheezes. No chest wall tenderness is noted on palpation or with deep breathing. HEART: Iegular rate and rhythm with systolic ejection murmur at the base, no rubs or gallops. S1 and S2 heard. ABDOMEN: Soft, nontender. Bowel sounds are heard. No organomegaly noted. EXTREMITIES: No evidence of peripheral edema and no calf tenderness noted. VASCULAR: Radial and dorsalis pedis pulses palpated, no evidence of clubbing. NEUROLOGIC: Patient is awake, alert and oriented x3. ASSESSMENT Acute on chronic systolic heart failure History of coronary artery disease status post bypass grafting Chronic ischemic cardiomyopathy status post AICD implantation Hypertension Dyslipidemia Chronic persistent atrial fibrillation on long-term anticoagulation with Coumadin PLAN Continue IV diuresis, decreased to 40 mg IV twice a day. Echocardiogram has been obtained and will be reviewed. Follow renal function and electrolytes in the morning. Document accurate intake and output along with daily weights. Continue Coumadin, aspirin, atenolol, Imdur, lisinopril and pravastatin as previously ordered. We will continue to follow and make recommendations accordingly. Nurse Practitioner note has been reviewed, I agree with a documented findings and plan of care. Patient was seen and examined. 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 Last Myocardial Infarction Date:: 2002 History of Any Multi-Drug Resistant Organisms: None Reported Past Surgical History: Coronary Bypass/CABG, Heart Catheterization With Stent, Hernia Repair, Orthopedic Surgery, Pacemaker, Prostate Surgery Additional Past Surgical History / Comment(s): 10/22/13 AICD, 2006 pacemaker, PCI with stents (3), 2000 CABG 3 vessel, prostate biopsies, bilateral inguinal hernia repair, R knee I&D, L elbow/L chest schrapnel injuries with skin graft to L elbow and L knee, partial colectomy, EGD/colonoscopies. Past Anesthesia/Blood Transfusion Reactions: No Reported Reaction Additional Past Anesthesia/Blood Transfusion Reaction / Comment(s): Pt has received blood before without reaction. Date of Last Stent Placement:: 2002 Type of Cardiac Device: Permanent Pacemaker, AICD Device Placement Date:: 10/22/2013 AICD/ 2006 pacer Past Psychological History: No Psychological Hx Reported Additional Psychological History / Comment(s): Pt resides with his spouse and their handicapped son for whom they are the caregivers. Pt drives. He uses a cane prn. He served in the [employer] during the [place] [employer] [place] [employer]. Smoking Status: Former smoker Past Alcohol Use History: None Reported Additional Past Alcohol Use History / Comment(s): Pt started smoking in 1954 and quit in 1972. He smoked 2-3 ppd. Past Drug Use History: None Reported - Past Family History Father Family Medical History: Myocardial Infarction ([place]) Additional Family Medical History / Comment(s): "hardened arteries". Father in his 80s of a [place]. Mother Family Medical History: Myocardial Infarction ([place]) Additional Family Medical History / Comment(s): Mother at the age of 56yrs from a [place]. Medications and Allergies Home Medications Medication Instructions Recorded Confirmed Type Aspirin 81 mg PO DAILY 05/25/14 05/17/19 History Atenolol [Tenormin] 25 mg PO BID 05/25/14 05/17/19 History Furosemide [Lasix] 40 mg PO DAILY 10/01/17 05/17/19 History Pravastatin Sodium [Pravachol] 40 mg PO HS 10/01/17 05/17/19 History Isosorbide Mononitrate ER [Imdur] 30 mg PO DAILY 11/22/17 05/17/19 History Cholecalciferol [Vitamin D3] 1,000 unit PO HS 12/18/18 05/17/19 History Ferrous Sulfate [Feosol] 325 mg PO DAILY 12/18/18 05/17/19 History Vitamin B Complex 1 cap PO DAILY 12/18/18 05/17/19 History Ativan (Unknown Dose) 0.5 tab PO HS PRN 05/17/19 05/17/19 History Lisinopril [Zestril] 2.5 mg PO HS 05/17/19 05/17/19 History Warfarin [Coumadin] 2.5 mg PO HS 05/17/19 05/17/19 History Allergies Allergy/AdvReac Type Severity Reaction Status Date / Time acetaminophen [From Tylenol] Allergy Rash/Hives Verified 05/17/19 14:44 meperidine HCl [From Demerol] AdvReac Nausea & Verified 05/17/19 14:44 Vomiting Physical Exam Vitals: Vital Signs Temp Pulse Pulse Resp BP BP Pulse Ox 05/18/19 10:00 61 113/61 05/18/19 08:00 98.2 F 61 16 87/51 96 05/18/19 04:32 97.9 F 66 16 103/73 94 L 05/18/19 00:30 98.7 F 66 16 111/66 95 05/17/19 20:00 97.8 F 69 16 104/75 95 05/17/19 19:45 97.8 F 69 16 104/75 95 05/17/19 18:00 60 05/17/19 17:38 66 18 101/59 97 05/17/19 14:19 97.4 F L 76 18 116/74 95 Intake and Output 05/17/19 05/18/19 05/18/19 22:59 06:59 14:59 Output Total 300 700 Balance -300 -700 Output: Urine 300 700 Other: Voiding Method Urinal Urinal Urinal # Voids 2 1 Weight 50.6 kg Results 05/18/19 02:19 05/18/19 02:19 Cardiac Enzymes 05/17/19 05/17/19 05/17/19 Range/Units 14:50 14:50 20:55 AST 68 H (17-59) U/L Troponin I 0.013 0.023 (0.000-0.034) ng/mL 05/18/19 05/18/19 Range/Units 02:19 02:19 AST 46 (17-59) U/L Troponin I 0.020 (0.000-0.034) ng/mL Coagulation 05/17/19 05/18/19 Range/Units 14:50 02:19 PT 22.1 H 23.4 H (9.0-12.0) sec APTT 35.1 H (22.0-30.0) sec CBC 05/17/19 05/18/19 Range/Units 14:50 02:19 WBC 9.4 7.9 (3.8-10.6) k/uL RBC 3.81 L 3.91 L (4.30-5.90) m/uL Hgb 11.1 L 10.9 L (13.0-17.5) gm/dL Hct 34.2 L 35.0 L (39.0-53.0) % Plt Count 171 144 L (150-450) k/uL Comprehensive Metabolic Panel 05/17/19 05/18/19 Range/Units 14:50 02:19 Sodium 139 137 (137-145) mmol/L Potassium 4.8 4.1 (3.5-5.1) mmol/L Chloride 102 99 (98-107) mmol/L Carbon Dioxide 26 29 (22-30) mmol/L BUN 25 H 28 H (9-20) mg/dL Creatinine 0.89 1.07 (0.66-1.25) mg/dL Glucose 107 H 112 H (74-99) mg/dL Calcium 9.7 9.3 (8.4-10.2) mg/dL AST 68 H 46 (17-59) U/L ALT 44 40 (21-72) U/L Alkaline Phosphatase 129 H 117 (38-126) U/L Total Protein 7.5 7.0 (6.3-8.2) g/dL Albumin 3.9 3.7 (3.5-5.0) g/dL Current Medications Generic Name Dose Route Start Last Admin Trade Name Freq PRN Reason Stop Dose Admin Acetaminophen 650 mg 05/17/19 16:38 Tylenol Tab PO Q6HR PRN Mild Pain or Fever > 100.5 Hydrocodone Bitart/Acetaminophen 1 each 05/17/19 16:38 [place] 5-325 PO Q4HR PRN Moderate Pain Aspirin 81 mg 05/18/19 09:00 05/18/19 10:08 Aspirin PO 81 mg DAILY JUICE Administration Atenolol 25 mg 05/17/19 21:00 05/18/19 10:08 Tenormin PO 25 mg BID JUICE Administration Cholecalciferol 1,000 unit 05/17/19 21:00 05/17/19 21:29 Vitamin D3 (25 Mcg = 1000 Iu) PO 1,000 unit HS [facility] Administration Ferrous Sulfate 325 mg 05/18/19 09:00 05/18/19 10:08 Feosol PO 325 mg DAILY JUICE Administration Furosemide 40 mg 05/18/19 21:00 Lasix IV Q12HR JUICE Isosorbide Mononitrate 30 mg 05/18/19 09:00 05/18/19 10:08 Imdur PO 30 mg DAILY JUICE Administration Lisinopril 2.5 mg 05/17/19 21:00 05/17/19 21:29 Zestril PO 2.5 mg HS JUICE Administration Morphine Sulfate 2 mg 05/17/19 16:38 Morphine Sulfate (Inj) IV Q4HR PRN Severe Pain Naloxone HCl 0.2 mg 05/17/19 16:38 Narcan IV Q2M PRN Opioid Reversal Pravastatin Sodium 40 mg 05/17/19 21:00 05/17/19 21:29 Pravachol PO 40 mg HS JUICE Administration Sodium Chloride 10 ml 05/17/19 21:00 05/18/19 10:13 Saline Flush IV 10 ml BID JUICE Administration Warfarin Sodium 2.5 mg 05/17/19 18:00 05/17/19 21:29 Coumadin PO 2.5 mg DAILY@1800 JUICE Administration Intake and Output 05/17/19 05/18/19 05/18/19 22:59 06:59 14:59 Output Total 300 700 Balance -300 -700 Output: Urine 300 700 Other: Voiding Method Urinal Urinal Urinal # Voids 2 1 Weight 50.6 kg 05/18/19 02:19 05/18/19 02:19
[2019-05-18 12:08] VITALS: BMI 15.1
--- NOTE | 2019-05-18 15:07 | ECHOF ---
Referral Reason:CHF MEASUREMENTS -------- HEIGHT: 182.9 cm WEIGHT: 50.3 kg BP: 103/73 IVSd: 1.1 cm (0.6 - 1.1) LVIDd: 5.8 cm (3.9 - 5.3) LVPWd: 0.8 cm (0.6 - 1.1) IVSs: 1.7 cm LVIDs: 5.2 cm LVPWs: 1.0 cm LAESV Index (A-L): 58.36 ml/m Ao Diam: 4.1 cm (2.0 - 3.7) MV EXCURSION: 17.007 mm (> 18.000) MV EF SLOPE: 62 mm/s (70 - 150) AR PHT: 569 ms RAP: 15.00 mmHg RVSP: 66.62 mmHg FINDINGS -------- Sinus rhythm. This was a technically good study. The left ventricle is moderately dilated. There is severe global hypokinesis of LV . Overall left ventricular systolic function is severely impaired with, an EF between 20 - 25 %. Inferior basal H ypokinesis The right ventricle is mildly enlarged. The left atrium is mildly dilated. The right atrium is mildly enlarged. Electronic pacemaker lead seen in the right atrial cavity. Interatrial and interventricular septum intact. There is mild aortic valve sclerosis. There is mild aortic regurgitation. The aortic pressure gladys f-time by doppler is 569ms. Mild mitral annular calcification present. Moderate mitral regurgitation is present. Moderate tricuspid regurgitation present. There is mild to moderate pulmonary hypertension. The r ight ventricular systolic pressure, as measured by Doppler, is 66.62mmHg. Pulmonic valve appears structurally normal. The aortic root, ascending aorta and aortic arch are normal. The pericardium is normal. CONCLUSIONS -------- 1. This was a technically good study. 2. The left ventricle is moderately dilated. 3. There is severe global hypokinesis of LV . 4. Overall left ventricular systolic function is severely impaired with, an EF between 20 - 25 %. 5. Inferior basal Hypokinesis 6. The right ventricle is mildly enlarged. 7. The left atrium is mildly dilated. 8. The right atrium is mildly enlarged. 9. Electronic pacemaker lead seen in the right atrial cavity. 10. Interatrial and interventricular septum intact. 11. There is mild aortic valve sclerosis. 12. There is mild aortic regurgitation. 13. The aortic pressure half-time by doppler is 569ms. 14. Mild mitral annular calcification present. 15. Moderate mitral regurgitation is present. 16. Moderate tricuspid regurgitation present. 17. There is mild to moderate pulmonary hypertension. 18. The right ventricular systolic pressure, as measured by Doppler, is 66.62mmHg. 19. Pulmonic valve appears structurally normal. 20. The aortic root, ascending aorta and aortic arch are normal. 21. The pericardium is normal. BENCH MOLDER: Gonzalo Bran RDCS
[2019-05-18] MEDS: WARFARIN 2.5 MG TAB PO SCH (17:55)
[2019-05-18] MEDS: PRAVASTATIN SODIUM 40 MG TAB PO SCH (20:56)
[2019-05-18] MEDS: CHOLECALCIFEROL 1,000 UNIT TAB PO SCH (20:56)
[2019-05-18] MEDS: LISINOPRIL 2.5 MG TAB PO SCH (20:56)
[2019-05-18] MEDS ORDERED: FUROSEMIDE 10 MG/ML 4 ML VIAL IV SCH (21:00)
[2019-05-19 05:43] VITALS: RESP 16
[2019-05-19 06:52] LABS: INR 2.8 (<1.2)
[2019-05-19 06:53] LABS: Prothrombin Time 27.5 sec (9.0-12.0)
[2019-05-19 07:00] LABS: Calcium 8.9 mg/dL (8.4-10.2)
[2019-05-19 07:41] VITALS: BP 87/53; PULSE 68; TEMP 98.2
[2019-05-19] MEDS: ATENOLOL 25 MG TAB PO SCH (08:14)
[2019-05-19] MEDS: ISOSORBIDE MONONITRATE ER 30 MG TAB.ER.24H PO SCH (08:14)
[2019-05-19] MEDS: ASPIRIN 81 MG PO SCH (08:38)
[2019-05-19] MEDS: FERROUS SULFATE 325 MG TAB PO SCH (08:38)
[2019-05-19] MEDS ORDERED: FUROSEMIDE 40 MG TAB PO SCH (09:00)
--- NOTE | 2019-05-19 09:09 | P.DS ---
Providers Date of admission: 05/17/19 16:33 Expected date of discharge: 05/19/19 Attending physician: Clinton Ta MD Consults: 05/17/19 16:33 Consult Physician Routine Consulting Provider: Vinicio Aponte Consult Reason/Comments: CHF Do you want consulting provider notified?: Yes Primary care physician: [facility] Course: 89-year-old male with PMH of atrial fibrillation, CHF post AICD and pacemaker, CAD post CABG, bladder cancer follows Dr. Wilkerson presents to the ED for chest pain. Patient reports chest pain that started yesterday as he was sitting and watching TV. Pain is constant lasting 5 minutes at a time. Patient describes the pain as knifelike and stabbing in nature. Pain is located in the left side of the chest and occasionally radiates to the midline. Pain is 10 out of 10 in severity. Patient reports no aggravating or alleviating factors. Patient reports being evaluated for chest pain in the past, was told it was muscle spasms, but got worried because this pain was increased in intensity. Patient also reports some shortness of breath only with the chest pain. He denies any headache, lower extremity edema, nausea or vomiting, fever or chills, palpitations, changes in urination or bowel habits. No changes in appetite or weight. Patient denies dizziness, numbness/weakness/tingling of extremities. In the ED, his vital signs were stable. CBC showed anemia with hemoglobin of 11.1. Coagulation panel shows INR 2.3. CMP shows BUN of 25, glucose of 107, total bilirubin of 1.4, AST 68, alkaline phosphatase 129. Troponin was 0.013, EKG showing atrial flutter with variable AV block. BNP was 5090, chest x-ray showing CHF exacerbation and small bilateral pleural effusion. Patient is admitted for chest pain, rule out acute coronary syndrome, cardiology consulted. His chest pain completely resolved on day 2 of admission. Troponin was 0.013, 0.023, 0.02 with EKG showing atrial flutter and variable AV block. Acute coronary syndrome was ruled out. He was continued on aspirin, pravastatin and atenolol. Echocardiogram was done which showed EF 20-25% with severe global hypokinesis and hypokinetic wall motion. He was initially diuresed with Lasix 40 mg IV twice a day and transitioned to 40 mg by mouth daily on day 3. Patient was noted to have an elevated BUN of 25 on admission. His BUN worsened to 32 on admission but this was thought to be secondary to forced diuresis. Patient initially had elevated liver enzymes with total bilirubin 1.4, AST 68, alkaline phosphatase 129. His AST and alkaline phosphatase normalized on day 2 of admission. Total bilirubin was 1.6 at the time of discharge. Patient was seen and examined prior to discharge. No acute events overnight. Patient reports complete resolution of his chest pain. Breathing is back to normal. He denies any shortness of breath or palpitations. No nausea or vomiting. No fever or chills. States that he has been able to ambulate the hallways without any difficulties. Looking forward to going home. General: [non toxic], [no distress], [appears at stated age] Derm: [warm], [dry] Head: [atraumatic], [normocephalic], [symmetric] Eyes: [EOMI], [no lid lag], [anicteric sclera] Mouth: [no lip lesion], [mucus membranes moist] Cardiovascular: [S1S2 reg], [irregular], [positive DP pulse bilateral] Lungs: [Clear to auscultation bilateral], [no rhonchi, no rales] , [no accessory muscle use] Abdominal: [soft], [ nontender to palpation], [no guarding], [no appreciable organomegaly] Ext: [no gross muscle atrophy], [no edema], [no contractures] Neuro: [no focal neuro deficits] Psych: [Alert], [oriented], [appropriate affect] Assessment and Plan Chest pain, atypical with risk factors for ACS Acute on chronic systolic CHF exacerbation with EF 35-40% post AICD and pacemaker Atrial fibrillation Bladder cancer Elevated BUN Elevated liver enzymes Troponin 0.013, 0.023, 0.02, EKG showing atrial flutter with variable AV block. ACS ruled out. Echocardiogram shows EF 20-25% with severe global hypokinesis and wall motion abnormalities. Plans: Continue aspirin, pravastatin and atenolol. Pain control with Tylenol, [place] or morphine as needed. Telemetry monitoring. Follow cardiology consultation. BNP 5090 with chest x-ray showing findings consistent with CHF. Plans: Lasix transitioned to oral. Continue lisinopril and atenolol. Strict intake and output. Daily weights. Follow echocardiogram. Follow-up cardiology consultation. Plans: Continue atenolol for rate control. Continue Coumadin for anticoagulation. Plans: Need adequate follow-up with Dr. Plummer on discharge. BUN 25-28-32. Creatinine within normal limits. Likely due to dehydration and forced diuresis. Plans: Daily BMP. Avoid nephrotoxins. Encourage hydration by mouth. Caution with hydration due to chest x-ray findings. Total bilirubin 1.4-1.6, AST 68-within normal limits, alkaline phosphatase 129- within normal limits. Likely from dehydration. Plans: Improving. Needs adequate follow-up in the outpatient setting. [Patient is admitted for chest pain, ACS is ruled out. Found to have CHF exacerbation, cleared for discharge from cardiology perspective, discussed with RN. PAL today. Follow-up PCP in 3 days. Follow-up cardiology within 1 week.] This complex discharge took about 35 minutes. Pertinent Studies: Chest x-ray, echocardiogram Patient Condition at Discharge: Stable Plan - Discharge Summary Discharge Rx Participant: No New Discharge Prescriptions: Continue Aspirin 81 mg PO DAILY Atenolol [Tenormin] 25 mg PO BID Pravastatin Sodium [Pravachol] 40 mg PO HS Vitamin B Complex 1 cap PO DAILY Ferrous Sulfate [Iron (65 MG Elemental)] 325 mg PO DAILY Cholecalciferol [Vitamin D3 (25 Mcg = 1000 Iu)] 1,000 unit PO HS Warfarin [Coumadin] 2.5 mg PO HS Lisinopril [Zestril] 2.5 mg PO HS Ativan (Unknown Dose) 0.5 tab PO HS PRN PRN Reason: Anxiety Furosemide [Lasix] 40 mg PO DAILY #90 tab Discontinued Isosorbide Mononitrate ER [Imdur] 30 mg PO DAILY Discharge Medication List Aspirin 81 mg PO DAILY 05/25/14 [History] Atenolol [Tenormin] 25 mg PO BID 05/25/14 [History] Pravastatin Sodium [Pravachol] 40 mg PO HS 10/01/17 [History] Cholecalciferol [Vitamin D3 (25 Mcg = 1000 Iu)] 1,000 unit PO HS 12/18/18 [History] Ferrous Sulfate [Iron (65 MG Elemental)] 325 mg PO DAILY 12/18/18 [History] Vitamin B Complex 1 cap PO DAILY 12/18/18 [History] Ativan (Unknown Dose) 0.5 tab PO HS PRN 05/17/19 [History] Lisinopril [Zestril] 2.5 mg PO HS 05/17/19 [History] Warfarin [Coumadin] 2.5 mg PO HS 05/17/19 [History] Furosemide [Lasix] 40 mg PO DAILY #90 tab 05/19/19 [Rx] Follow up Appointment(s)/Referral(s): Valentin Mir MD [Primary Care Provider] - 1-2 days Juwan Padilla MD [STAFF PHYSICIAN] - 1 Week Activity/Diet/Wound Care/Special Instructions: Diet: Heart healthy, low-salt Follow-up PCP within 1-3 days of discharge. Follow-up with cardiology within 1 week of discharge. Take home medications as advised. Patient instructed to check his weight daily and advised to take an extra dose of Lasix when he feels short of breath. Discharge Disposition: HOME SELF-CARE
--- NOTE | 2019-05-19 11:06 | P.PN ---
Subjective This is a pleasant 89-year-old male past medical history significant for coronary artery disease status post bypass grafting, ischemic cardiomyopathy status post AICD implantation, hypertension, dyslipidemia, chronic persistent atrial fibrillation and chronic systolic heart failure. He follows in the office with Dr. Silver. Patient was seen and examined sitting up eating breakfast in no acute distress. Overall he states his breathing is greatly improved since admission. He has no further exertional shortness of breath. He denies chest pain, dizziness or palpitations. Blood pressure 87/53 with a heart rate of 68. Laboratory data reviewed, INR 2.8, sodium 138, potassium 4, creatinine 1.2. Echocardiogram reviewed reveals impaired LV systolic function with ejection fraction 20-25%, global hypokinesia, inferior basal hypokinesia as well, moderate MR and moderate TR. GENERAL: This is a 89-year-old male in no apparent distress at the time of my examination. Frail. HEENT: Head is atraumatic, normocephalic. Pupils are equal, round. Sclerae anicteric. Conjunctivae are clear. Mucous membranes of the mouth are moist. Neck is supple. There is no jugular venous distention. No carotid bruit is heard. LUNGS: Bibasilar rales, no rhonchi or wheezes. No chest wall tenderness is noted on palpation or with deep breathing. HEART: Iegular rate and rhythm with systolic ejection murmur at the base, no rubs or gallops. S1 and S2 heard. EXTREMITIES: No evidence of peripheral edema and no calf tenderness noted. ASSESSMENT Acute on chronic systolic heart failure History of coronary artery disease status post bypass grafting Chronic ischemic cardiomyopathy status post AICD implantation Hypertension Dyslipidemia Chronic persistent atrial fibrillation on long-term anticoagulation with Coumadin PLAN Transitioned to oral diuretics. Continue to monitor blood pressure for the remainder of the morning, if his blood pressure is stable he may be discharged this afternoon. Follow-up in the office with Dr. Silver. Nurse Practitioner note has been reviewed, I agree with a documented findings and plan of care. Patient was seen and examined. Objective - Vital Signs Vital signs: Vital Signs Temp 98.2 F 05/19/19 07:38 Pulse 68 05/19/19 07:40 Resp 16 05/19/19 07:40 BP 87/53 05/19/19 07:38 Pulse Ox 96 05/19/19 07:38 Intake & Output 05/18/19 05/19/19 05/19/19 18:59 06:59 18:59 Intake Total 800 200 Balance 800 200 Weight 50.6 kg Intake: Oral 800 200 Other: Voiding Method Urinal Urinal Urinal - Labs CBC & Chem 7: 05/18/19 02:19 05/19/19 06:17 Labs: Abnormal Lab Results - Last 24 Hours (Table) 05/19/19 05/19/19 Range/Units 06:17 06:17 PT 27.5 H (9.0-12.0) sec INR 2.8 H (<1.2) Chloride 96 L (98-107) mmol/L Carbon Dioxide 35 H (22-30) mmol/L BUN 32 H (9-20) mg/dL
== END 2019-05-19 11:21 | disposition home or self-care (01) | DRG 292 ==
LOC: EC 14:18 → 3SCARD 16:33
PROVIDERS: ADMIT Family Medicine; ATTEND Family Medicine
DX: I11.0 Hypertensive heart disease with heart failure (principal); I48.1 Persistent atrial fibrillation; I48.92 Unspecified atrial flutter; D64.9 Anemia, unspecified; E78.5 Hyperlipidemia, unspecified; E86.0 Dehydration; I25.10 Atherosclerotic heart disease of native coronary artery without angina pectoris; I25.2 Old myocardial infarction; I25.5 Ischemic cardiomyopathy; I27.20 Pulmonary hypertension, unspecified; I08.1 Rheumatic disorders of both mitral and tricuspid valves; I44.30 Unspecified atrioventricular block; I50.23 Acute on chronic systolic (congestive) heart failure; Z79.01 Long term (current) use of anticoagulants; Z79.82 Long term (current) use of aspirin; I95.9 Hypotension, unspecified; Z79.899 Other long term (current) drug therapy; Z82.49 Family history of ischemic heart disease and other diseases of the circulatory system; Z85.038 Personal history of other malignant neoplasm of large intestine; Z85.51 Personal history of malignant neoplasm of bladder; Z87.442 Personal history of urinary calculi; Z87.891 Personal history of nicotine dependence; Z95.1 Presence of aortocoronary bypass graft; Z95.5 Presence of coronary angioplasty implant and graft; Z95.810 Presence of automatic (implantable) cardiac defibrillator; G89.29 Other chronic pain; M54.9 Dorsalgia, unspecified; Z88.6 Allergy status to analgesic agent; Z88.5 Allergy status to narcotic agent; Z92.3 Personal history of irradiation; Z85.46 Personal history of malignant neoplasm of prostate
CPT/HCPCS: 36415; 71046; 80048; 80053; 82550; 83735; 83880; 84484; 85025; 85610; 85730; 93005; 93306; 96374; 99285

== ENCOUNTER → 2019-09-18 | Outpatient (CLI) | payer MEDICARE, OTHER ==
[2019-09-18 14:12] LABS: Basophils # (A) 0.1 k/uL (0-0.2); Basophils % (A) 1 %; Eosinophils # (A) 0.2 k/uL (0-0.7); Eosinophils % (A) 3 %; HCT 35.9 % (39.0-53.0); HGB 11.2 gm/dL (13.0-17.5); Hypochromasia Moderate; Lymphocytes # (A) 1.4 k/uL (1.0-4.8); Lymphocytes % (A) 19 %; MCH 29.4 pg (25.0-35.0); MCHC 31.2 g/dL (31.0-37.0); MCV 94.2 fL (80.0-100.0); Mean Platelet Volume 7.9; Monocytes # (A) 0.5 k/uL (0-1.0); Monocytes % (A) 7 %; Neutrophils % (A) 69 %; Platelet Count 143 k/uL (150-450); RBC 3.82 m/uL (4.30-5.90); RDW 14.5 % (11.5-15.5); WBC 7.3 k/uL (3.8-10.6)
[2019-09-18 14:20] LABS: Calcium 9.6 mg/dL (8.4-10.2); Potassium 4.4 mmol/L (3.5-5.1)
[2019-09-18 14:21] LABS: Appearance,Urine Clear (Clear); Bacteria,Urine Rare /hpf; Bilirubin,Urine Negative (Negative); Blood,Urine Moderate (Negative); Color,Urine Yellow; Glucose,Urine (UA) Negative (Negative); Hyaline Casts,Urine 1 /lpf (0-2); Ketones,Urine Negative (Negative); Leukocyte Esterase,Urine Negative (Negative); Mucus,Urine Rare /hpf; Nitrite,Urine Negative (Negative); PH, Urine 6.5 (5.0-8.0); Protein,Urine Negative (Negative); RBC,Urine >182 /hpf (0-5); Specific Gravity,Urine 1.009 (1.001-1.035); WBC,Urine 3 /hpf (0-5)
== END | disposition home or self-care (01) ==
LOC: LABPAT 12:59
PROVIDERS: ATTEND Urology
DX: Z01.818 Encounter for other preprocedural examination (principal); Z01.812 Encounter for preprocedural laboratory examination; I10 Essential (primary) hypertension; C67.9 Malignant neoplasm of bladder, unspecified; R31.0 Gross hematuria
CPT/HCPCS: 36415; 80048; 81001; 85025; 93005

== ENCOUNTER 2019-09-26 14:26 | Inpatient (IN) | payer MEDICARE, OTHER ==
[2019-09-26 16:01] LABS: Basophils # (A) 0.1 k/uL (0-0.2); Basophils % (A) 0 %; Eosinophils % (A) 0 %; HCT 32.5 % (39.0-53.0); HGB 10.6 gm/dL (13.0-17.5); Hypochromasia Slight; Lymphocytes # (A) 0.8 k/uL (1.0-4.8); Lymphocytes % (A) 5 %; MCHC 32.5 g/dL (31.0-37.0); MCV 92.3 fL (80.0-100.0); Monocytes # (A) 0.9 k/uL (0-1.0); Monocytes % (A) 6 %; Neutrophils # (A) 14.2 k/uL (1.3-7.7); Neutrophils % (A) 88 %; Platelet Count 177 k/uL (150-450); RBC 3.53 m/uL (4.30-5.90); RDW 14.7 % (11.5-15.5); WBC 16.1 k/uL (3.8-10.6)
[2019-09-26 16:11] LABS: Albumin 3.5 g/dL (3.5-5.0); Calcium 9.1 mg/dL (8.4-10.2); Potassium 5.2 mmol/L (3.5-5.1); Total Bilirubin 1.4 mg/dL (0.2-1.3); Total Protein 6.8 g/dL (6.3-8.2)
[2019-09-26 16:12] LABS: INR 1.2 (<1.2); Partial Thromboplastin Time 22.6 sec (22.0-30.0); Prothrombin Time 11.8 sec (9.0-12.0)
--- NOTE | 2019-09-26 16:18 | XR ---
EXAMINATION TYPE: XR chest 2V DATE OF EXAM: 09/26/2019 COMPARISON: 05/17/2019 HISTORY: Shortness of breath FINDINGS: Noted is pulmonary venous congestion with scattered infiltrates. There is also cardiomegaly and small effusions. IMPRESSION: Findings compatible with congestive failure. Infiltrates of other etiology are not excluded. Clinical correlation and progress studies are recommended.
[2019-09-26] MEDS ORDERED: FUROSEMIDE 10 MG/ML 4 ML VIAL IV STA ×2 (16:21→21:44)
[2019-09-26] MEDS ORDERED: SODIUM CHLORIDE 0.9% 1,000 ML IV SCH (16:30)
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
[2019-09-26] MEDS ORDERED: AZITHROMYCIN 500 MG in SODIUM CHLORIDE 0.9% 250 ML IVPB STA (17:49)
[2019-09-26 18:03] LABS: Amorphous Sediment,Urine Rare /hpf; Appearance,Urine Turbid (Clear); Bacteria,Urine Few /hpf; Bilirubin,Urine Negative (Negative); Blood,Urine Large (Negative); Color,Urine Dark Brown; Glucose,Urine (UA) Negative (Negative); Ketones,Urine Negative (Negative); Leukocyte Esterase,Urine Large (Negative); Mucus,Urine Many /hpf; Nitrite,Urine Negative (Negative); Protein,Urine 2+ (Negative); RBC,Urine >182 /hpf (0-5); Urobilinogen,Urine <2.0 mg/dL (<2.0); WBC,Urine >182 /hpf (0-5)
[2019-09-26] MEDS ORDERED: NALOXONE 0.4 MG/ML 1 ML VIAL IV PRN (18:15)
--- NOTE | 2019-09-26 19:29 | NM ---
EXAMINATION TYPE: NM pul vent and perfuse DATE OF EXAM: 09/26/2019 COMPARISON: Chest radiographs 09/26/2019 at 4:12 PM HISTORY: Weakness and elevated d-dimer, clinical suspicion for pulmonary embolism TECHNIQUE: Utilizing inhalation of 67.1 mCi Tc 99m DTPA aerosol and intravenous injection of 5.2 mCi of Tc 99m MAA, ventilation and perfusion images are acquired post injection in multiple projections. FINDINGS: The distribution of the lung perfusion and lung ventilation radiotracer is is heterogeneous to a mild plus degree. No definite lung ventilation perfusion mismatched defects. The comparison radiograph of 09/26/2019 at 4:12 PM shows marked enlargement of the cardiac silhouette with prominent interstitial phase pulmonary edema and small pleural effusions. IMPRESSION: Low probability for the diagnosis of pulmonary embolism.
[2019-09-26] MEDS ORDERED: NITROGLYCERIN SL TABS 0.4 MG TAB SUBLINGUAL PRN (21:28)
--- NOTE | 2019-09-26 21:59 | P.HPIM ---
History of Present Illness H&P Date: 09/26/19 Chief Complaint: Penis pain the patient is 89-year-old male with PMH of atrial fibrillation, CHF post AICD and pacemaker, CAD post CABG, urinary bladder cancer follows Dr. Wilkerson presents to the ED for penile pain after having cystoscopy and bilateral retrograde pyelograms and transurethral resection of tumor and erythema by Dr. Wilkerson yesterday. The patient reports some fatigue weakness and shortness of breath, denies any chest pain or pleuritic chest discomfort but does report swelling in the lower extremities and dyspnea on exertion, he denies cough, denies subjecti ve fevers chills or night sweats. Review of records indicates echocardiogram 05/23 showed a severely impaired ejection fraction of 20-25% with inferior basal hypokinesis with moderate MR and moderate TR and mild to moderate PAH In the ER the patient had a comprehensive workup chest x-ray showed findings Compatible with CHF, EKG showed a ventricular paced rhythm. CBC WBCs were 16.1, hemoglobin 10.6, d-dimer 1.5, sodium 137, potassium 5.2, bicarb 24, BUN 53, creatinine 1.7, plasma lactic 3.5, NT proBNP 20,000, troponin 0.073. Urinalysis 2+ protein and large blood greater than 182 WBCs, influenza was negative. The patient was noted to have urinary retention and had output of approximately 700 mL after Durbin catheter was placed, The patient was given a dose of azithromycin and Rocephin and Lasix and recommended for admission. Review of Systems Pertinent positives per HPI all other review of systems are otherwise negative Past Medical History Past Medical History: Atrial Fibrillation, Cancer, Chest Pain / Angina, Heart Failure, GI Bleed, Myocardial Infarction (NC), Osteoarthritis (OA), Pneumonia, Prostate Disorder, Renal Disease Additional Past Medical History / Comment(s): Ischemic cardiomyopathy, mitral regurgitation, 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 Last Myocardial Infarction Date:: 2002 History of Any Multi-Drug Resistant Organisms: None Reported Past Surgical History: Coronary Bypass/CABG, Heart Catheterization With Stent, Hernia Repair, Orthopedic Surgery, Pacemaker, Prostate Surgery Additional Past Surgical History / Comment(s): 10/22/13 AICD, 2006 pacemaker, PCI with stents (3), 2000 CABG 3 vessel, prostate biopsies, bilateral inguinal hernia repair, R knee I&D, L elbow/L chest schrapnel injuries with skin graft to L elbow and L knee, partial colectomy, EGD/colonoscopies. Past Anesthesia/Blood Transfusion Reactions: No Reported Reaction Additional Past Anesthesia/Blood Transfusion Reaction / Comment(s): Pt has received blood before without reaction. Date of Last Stent Placement:: 2002 Type of Cardiac Device: Permanent Pacemaker, AICD Device Placement Date:: 10/22/2013 AICD/ 2006 pacer Past Psychological History: No Psychological Hx Reported Smoking Status: Former smoker Past Alcohol Use History: None Reported Past Drug Use History: None Reported - Past Family History Father Family Medical History: Myocardial Infarction (NC) Additional Family Medical History / Comment(s): "hardened arteries". Father in his 80s of a NC. Mother Family Medical History: Myocardial Infarction (NC) Additional Family Medical History / Comment(s): Mother at the age of 56yrs from a NC. Son(s) Family Medical History: Myocardial Infarction (NC) Medications and Allergies Home Medications Medication Instructions Recorded Confirmed Type RX: Atenolol [Tenormin] 25 mg PO BID 05/25/14 09/26/19 History RX: Pravastatin Sodium [Pravachol] 40 mg PO HS 10/01/17 09/26/19 History RX: Cholecalciferol [Vitamin D3 1,000 unit PO HS 12/18/18 09/26/19 History (25 Mcg = 1000 Iu)] RX: Ferrous Sulfate [Iron (65 MG 325 mg PO DAILY 12/18/18 09/26/19 History Elemental)] RX: Lisinopril [Zestril] 2.5 mg PO DAILY 05/17/19 09/26/19 History RX: Warfarin [Coumadin] 2.5 mg PO DIRECTED 05/17/19 09/26/19 History Aspirin [Adult Low Dose Aspirin EC] 81 mg PO HS 09/23/19 09/26/19 History Docusate [Colace] 100 mg PO DAILY 09/23/19 09/26/19 History Furosemide [Lasix] 40 mg PO DAILY 09/23/19 09/26/19 History Nitroglycerin Sl Tabs [Nitrostat] 0.4 mg SUBLINGUAL Q5M PRN 09/23/19 09/26/19 History Isosorbide Mononitrate ER [Imdur] 30 mg PO DAILY 09/26/19 09/26/19 History RX: Vitamin B Complex 1 cap PO DAILY 09/26/19 09/26/19 History Allergies Allergy/AdvReac Type Severity Reaction Status Date / Time acetaminophen [From Tylenol] Allergy Rash/Hives Verified 09/26/19 21:12 meperidine HCl [From Demerol] AdvReac Nausea & Verified 09/26/19 21:12 Vomiting Physical Exam Vitals: Vital Signs Temp Pulse Resp BP Pulse Ox 09/26/19 18:00 114/73 96 09/26/19 17:10 68 18 97/68 93 L 09/26/19 14:36 97.4 F L 66 21 110/64 91 L Intake and Output 09/26/19 09/26/19 09/26/19 06:59 14:59 22:59 Other: Weight 53.524 kg Constitutional: No acute distress, conversant, pleasant Eyes: Anicteric sclerae, moist conjunctiva, no lid-lag, PERRLA ENMT: NC/AT,Oropharynx clear, no erythema, exudates Neck:Supple, FROM, no masses, or JVD, No carotid bruits; No thyromegaly Lungs: Bibasilar crackers diminished in the bases, no accessory muscle use, unlabored on room air Cardiovascular: Heart regular in rate and rhythm, No murmurs, gallops, or rubs no peripheral edema Abdominal: Soft Nontender, nom distended, no guarding, no rebound or rigidity, Normoactive bowel sounds No hepatomegaly, No splenomegaly, No palpable mass No abdominal wall hernia noted Skin: Normal temperature, tone, texture, turgor, No induration No subcutaneous nodules, No rash, lesions, No ulcers Extremities:No digital cyanosis No clubbing, Pedal pulses intact and symme trical Radial pulses intact and symmetrical Normal gait and station, No calf tenderness Psychiatric: Alert and oriented to person, place and time, Appropriate affect Intact judgement Neuro: Muscles Strength 5/5 in all 4 extremities, Sensation to light touch grossly present throughout, Cranial nerves II-XII grossly intact. No focal sensory deficits Results CBC & Chem 7: 09/27/19 05:46 01/24/20 05:46 Labs: Abnormal Lab Results - Last 24 Hours (Table) 09/26/19 09/26/19 09/26/19 Range/Units 15:29 15:29 15:29 WBC 16.1 H (3.8-10.6) k/uL RBC 3.53 L (4.30-5.90) m/uL Hgb 10.6 L (13.0-17.5) gm/dL Hct 32.5 L (39.0-53.0) % Neutrophils # 14.2 H (1.3-7.7) k/uL Lymphocytes # 0.8 L (1.0-4.8) k/uL INR (<1.2) D-Dimer (<0.60) mg/L FEU Potassium 5.2 H (3.5-5.1) mmol/L BUN 53 H (9-20) mg/dL Creatinine 1.78 H (0.66-1.25) mg/dL Glucose 112 H (74-99) mg/dL Plasma Lactic Acid Srinivas 3.1 H* (0.7-2.0) mmol/L Total Bilirubin 1.4 H (0.2-1.3) mg/dL Troponin I (0.000-0.034) ng/mL Urine Protein (Negative) Urine Blood (Negative) Ur Leukocyte Esterase (Negative) Urine RBC (0-5) /hpf Urine WBC (0-5) /hpf Urine WBC Clumps (None) /hpf Amorphous Sediment (None) /hpf Urine Bacteria (None) /hpf Urine Mucus (None) /hpf 09/26/19 09/26/19 09/26/19 Range/Units 15:29 15:29 15:29 WBC (3.8-10.6) k/uL RBC (4.30-5.90) m/uL Hgb (13.0-17.5) gm/dL Hct (39.0-53.0) % Neutrophils # (1.3-7.7) k/uL Lymphocytes # (1.0-4.8) k/uL INR 1.2 H (<1.2) D-Dimer 1.58 H (<0.60) mg/L FEU Potassium (3.5-5.1) mmol/L BUN (9-20) mg/dL Creatinine (0.66-1.25) mg/dL Glucose (74-99) mg/dL Plasma Lactic Acid Srinivas (0.7-2.0) mmol/L Total Bilirubin (0.2-1.3) mg/dL Troponin I 0.073 H* (0.000-0.034) ng/mL Urine Protein (Negative) Urine Blood (Negative) Ur Leukocyte Esterase (Negative) Urine RBC (0-5) /hpf Urine WBC (0-5) /hpf Urine WBC Clumps (None) /hpf Amorphous Sediment (None) /hpf Urine Bacteria (None) /hpf Urine Mucus (None) /hpf 09/26/19 Range/Units 17:11 WBC (3.8-10.6) k/uL RBC (4.30-5.90) m/uL Hgb (13.0-17.5) gm/dL Hct (39.0-53.0) % Neutrophils # (1.3-7.7) k/uL Lymphocytes # (1.0-4.8) k/uL INR (<1.2) D-Dimer (<0.60) mg/L FEU Potassium (3.5-5.1) mmol/L BUN (9-20) mg/dL Creatinine (0.66-1.25) mg/dL Glucose (74-99) mg/dL Plasma Lactic Acid Srinivas (0.7-2.0) mmol/L Total Bilirubin (0.2-1.3) mg/dL Troponin I (0.000-0.034) ng/mL Urine Protein 2+ H (Negative) Urine Blood Large H (Negative) Ur Leukocyte Esterase Large H (Negative) Urine RBC >182 H (0-5) /hpf Urine WBC >182 H (0-5) /hpf Urine WBC Clumps Many H (None) /hpf Amorphous Sediment Rare H (None) /hpf Urine Bacteria Few H (None) /hpf Urine Mucus Many H (None) /hpf Assessment and Plan Assessment: Acute on chronic systolic CHF exacerbation Acute kidney injury with hyperkalemia Shock septic versus cardiogenic Elevated troponin Elevated d-dimer UTI urinary retention Lactic acidosis Plan: The patient is admitted anticipated greater than 2 midnight stay with acute on chronic systolic CHF and a patient with a severely impaired ejection fraction of 20-25% seen on echocardiogram done 05/23 Presenting with progressive dyspnea with chest x-ray suggesting CHF and a severely elevated proBNP of 20,000. Continue Lasix diuresis, daily weights , fluid restriction. The patient is also noted to be in acute kidney injury with noted hyperkalemia suspected to be cardiorenal in the setting of severe acute on chronic CHF exacerbation, will check echocardiogram, TSH, pro-calcitonin, renal ultrasound and consult cardiology for further recommendations. I will plan to hold all nephrotoxic medications at this time and consult nephrology for further recommendations. The patient is also have a leukocytosis we'll continue empiric coverage for pneum onia with azithromycin and Rocephin pending blood and urine cultures. Continue prophylaxis with Coumadin SCDs. CODE STATUS: DO NOT INTUBATE patient amenable to CPR chest compressions ACLS protocol and medications but not intubation Discussed plan of care with: Patient Anticipated discharge place: home
[2019-09-26] MEDS ORDERED: WARFARIN 2 MG TAB PO ONE (22:30)
[2019-09-27 06:24] LABS: INR 1.1 (<1.2); Prothrombin Time 11.3 sec (9.0-12.0)
[2019-09-27 06:30] LABS: Basophils % (A) 0 %; Eosinophils % (A) 0 %; HCT 30.9 % (39.0-53.0); HGB 9.9 gm/dL (13.0-17.5); Lymphocytes % (A) 9 %; MCH 29.4 pg (25.0-35.0); MCHC 31.9 g/dL (31.0-37.0); MCV 92.1 fL (80.0-100.0); Mean Platelet Volume 8.9; Monocytes # (A) 0.7 k/uL (0-1.0); Monocytes % (A) 6 %; Neutrophils # (A) 9.4 k/uL (1.3-7.7); Neutrophils % (A) 83 %; Platelet Count 144 k/uL (150-450); RBC 3.36 m/uL (4.30-5.90); WBC 11.3 k/uL (3.8-10.6)
[2019-09-27 06:35] LABS: Albumin 2.9 g/dL (3.5-5.0); Calcium 8.7 mg/dL (8.4-10.2); Potassium 4.8 mmol/L (3.5-5.1); Total Bilirubin 1.2 mg/dL (0.2-1.3)
[2019-09-27] MEDS ORDERED: SODIUM CHLORIDE 0.9% 500 ML 500 ML IV ONE ×2 (08:15→11:18)
--- NOTE | 2019-09-27 08:41 | XR ---
EXAMINATION TYPE: XR chest 2V DATE OF EXAM: 09/27/2019 COMPARISON: 09/26/2019 TECHNIQUE: PA and lateral views submitted. HISTORY: Shortness of breath FINDINGS: Epicardial lead intracardiac device noted. Postsurgical changes. Hyperinflation suggests COPD. Diffus e osteopenia. Biapical pleural thickening. Heart is enlarged and there is a diffuse interstitial sarah mildred with bilateral solid dilatation pleural effusion. Suspect chronic rib deformities involving the r ight lower rib cage IMPRESSION: 1. Correlate for CHF superimposed on a background of COPD. Underlying pneumonia not excluded.
--- NOTE | 2019-09-27 08:51 | US ---
EXAMINATION TYPE: US renals and bladder DATE OF EXAM: 09/26/2019 COMPARISON: US, CT CLINICAL HISTORY: JORDON. JORDON EXAM MEASUREMENTS: Right Kidney: 10.2 x 3.8 x 4.0 cm Left Kidney: 9.9 x 4.8 x 3.9 cm Right Kidney: Possible parapelvic cyst medial= 1.8 x 1.0 x 1.6 cm Left Kidney: Cyst anterior/mid= 1.4 x 1.7 x 1.7 cm/ Calculus as seen on previous= 1.9 cm/ No evidence of hydro, left kidney difficult to visualize due to overlying bowel Bladder: Cath in place, unable to visualize IMPRESSION: 1. Nonobstructing large left renal calculus. 2. Renal cysts.
[2019-09-27] MEDS: FERROUS SULFATE 325 MG TAB PO SCH (08:53)
[2019-09-27] MEDS: DOCUSATE 100 MG CAP PO SCH (08:53)
[2019-09-27] MEDS ORDERED: NON FORMULARY DRUG (Vitamin B Complex [Vitamin B Complex] 1 CAP) PO SCH (09:00)
[2019-09-27] MEDS ORDERED: FUROSEMIDE 10 MG/ML 4 ML VIAL IV SCH (09:00)
[2019-09-27 09:13] LABS: T4, Free (Free Thyroxine) 1.09 ng/dL (0.78-2.19)
--- NOTE | 2019-09-27 10:56 | P.NPCON ---
History of Present Illness - Reason for Consult acute renal failure - History of Present Illness Reason for consultation: Acute kidney injury History of present illness: Patient is a 89-year-old male seen in renal consultation for acute kidney injury. Patient's creatinine on admission was 1.78 and is 1.63 today. Baseline creatinine is near 1. Patient presents to the hospital due to penile pain. Pat ient states he has history of bladder cancer and underwent cystoscopy on September 25 with transurethral resection of tumor. He also has a Durbin catheter in place. Patient complains of generalized weakness as well as shortness of breath. Patient has chronic systolic CHF with ejection fraction of 20-25%. Patient is quite hypotensive with systolic blood pressure in the 70s and 80s. He is nonoliguric. Kidney ultrasound reveals no evidence of hydronephrosis. Patient denies any vomiting or diarrhea. Oral intake is just here. Denies use of nonsteroidals. No history of diabetes. Denies family history of renal disease. No fever or chills. Chest x-ray suggestive of vascular congestion. He is receiving IV Lasix and is also on antibiotics for presumed pneumonia. Vital signs are stable. General: The patient appeared well nourished and normally developed. HEENT: Head exam is unremarkable. Neck is without jugular venous distension. LUNGS: Lungs are clear to auscultation and percussion. Breath sounds decreased. HEART: Rate and Rhythm are regular. First and second heart sounds normal. No murmurs, rubs or gallops. ABDOMEN: Abdominal exam reveals normal bowel sounds. Non-tender and non- distended. No evidence of peritonitis. EXTREMITITES: Trace edema. Past Medical History Past Medical History: Atrial Fibrillation, Cancer, Chest Pain / Angina, Heart Failure, GI Bleed, Myocardial Infarction (NC), Osteoarthritis (OA), Pneumonia, Prostate Disorder, Renal Disease Additional Past Medical History / Comment(s): Ischemic cardiomyopathy, mitral regurgitation, 2008 prostrate cancer with radiation, 2012 colon cancer with [facility] nephrolithiasis being observed, intermittent hematuria, lower GI bleed, anemia, chronic back pain, bronchitis, sinus problems, past bilateral ankle fractures and past rib fractures. Last Myocardial Infarction Date:: 2002 History of Any Multi-Drug Resistant Organisms: None Reported Past Surgical History: Coronary Bypass/CABG, Heart Catheterization With Stent, Hernia Repair, Orthopedic Surgery, Pacemaker, Prostate Surgery Additional Past Surgical History / Comment(s): 10/22/13 AICD, 2006 pacemaker, PCI with stents (3), 2000 CABG 3 vessel, prostate biopsies, bilateral inguinal hernia repair, R knee I&D, L elbow/L chest schrapnel injuries with skin graft to L elbow and L knee, partial colectomy, EGD/colonoscopies. Past Anesthesia/Blood Transfusion Reactions: No Reported Reaction Additional Past Anesthesia/Blood Transfusion Reaction / Comment(s): Pt has received blood before without reaction. Date of Last Stent Placement:: 2002 Type of Cardiac Device: Permanent Pacemaker, AICD Device Placement Date:: 10/22/2013 AICD/ 2006 pacer Past Psychological History: No Psychological Hx Reported Additional Psychological History / Comment(s): Pt resides with his spouse and their handicapped son for whom they are the caregivers. Pt drives. He uses a cane prn. He served in the [employer] during the [employer]. Smoking Status: Former smoker Past Alcohol Use History: None Reported Additional Past Alcohol Use History / Comment(s): Pt started smoking in 6 and quit in 1972. He smoked 2-3 ppd. Past Drug Use History: None Reported - Past Family History Father Family Medical History: Myocardial Infarction (NC) Additional Family Medical History / Comment(s): "hardened arteries". Father in his 80s of a NC. Mother Family Medical History: Myocardial Infarction (NC) Additional Family Medical History / Comment(s): Mother at the age of 56yrs from a NC. Son(s) Family Medical History: Myocardial Infarction (NC) Medications and Allergies Home Medications Medication Instructions Recorded Confirmed Type Atenolol [Tenormin] 25 mg PO BID 05/25/14 09/26/19 History Pravastatin Sodium [Pravachol] 40 mg PO HS 10/01/17 09/26/19 History Cholecalciferol [Vitamin D3 (25 1,000 unit PO HS 12/18/18 09/26/19 History Mcg = 1000 Iu)] Ferrous Sulfate [Iron (65 MG 325 mg PO DAILY 12/18/18 09/26/19 History Elemental)] Lisinopril [Zestril] 2.5 mg PO DAILY 05/17/19 09/26/19 History Warfarin [Coumadin] 2.5 mg PO DIRECTED 05/17/19 09/26/19 History Aspirin [Adult Low Dose Aspirin EC] 81 mg PO HS 09/23/19 09/26/19 History Docusate [Colace] 100 mg PO DAILY 09/23/19 09/26/19 History Furosemide [Lasix] 40 mg PO DAILY 09/23/19 09/26/19 History Nitroglycerin Sl Tabs [Nitrostat] 0.4 mg SUBLINGUAL Q5M PRN 09/23/19 09/26/19 History Isosorbide Mononitrate ER [Imdur] 30 mg PO DAILY 09/26/19 09/26/19 History Vitamin B Complex 1 cap PO DAILY 09/26/19 09/26/19 History Allergies Allergy/AdvReac Type Severity Reaction Status Date / Time acetaminophen [From Tylenol] Allergy Rash/Hives Verified 09/26/19 21:12 meperidine HCl [From Demerol] AdvReac Nausea & Verified 09/26/19 21:12 Vomiting Physical Exam Vitals: Vital Signs Temp Pulse Pulse Resp BP BP Pulse Ox 09/27/19 09:25 88/60 09/27/19 08:44 74/52 09/27/19 08:00 89/49 09/27/19 07:56 98.2 F 53 L 18 81/51 95 09/27/19 04:02 98.8 F 52 L 18 100/57 95 09/27/19 02:37 98 F 66 16 91/66 96 09/27/19 00:00 97.9 F 66 16 99/66 96 09/26/19 23:06 98.2 F 65 16 98/50 96 09/26/19 21:00 55 L 16 103/50 95 09/26/19 18:00 114/73 96 09/26/19 17:10 68 18 97/68 93 L 09/26/19 14:36 97.4 F L 66 21 110/64 91 L Intake and Output 09/26/19 09/27/19 09/27/19 22:59 06:59 14:59 Intake Total 500 Output Total 700 1750 Balance -700 -1750 500 Intake: IV 500 Invasive Line 2 500 Output: Urine 700 1750 Other: Voiding Method Indwelling Catheter Weight 53.524 kg Results - Lab Results Most recent lab results Calcium 8.7 mg/dL (8.4-10.2) 09/27/19 05:46 09/27/19 05:46 09/27/19 05:46 Assessment and Plan Plan: Assessment: 1. Acute kidney injury secondary to ATN secondary to hypotension. Also component of cardiorenal syndrome. Creatinine 1.78 on admission and is 1.63 today. 2. History of bladder cancer status post cystoscopy and resection of the tumor on 09/25/2019. Currently has a Durbin catheter. Urology consulted. 3. Acute on chronic systolic CHF with ejection fraction of 20-25% with moderate mitral and tricuspid regurgitation. 4. Pulmonary hypertension. 5. Pyuria. Urine culture pending. Maintained on IV antibiotics. 6. Urinary retention. Currently has a Durbin catheter. 7. Dyspnea secondary to volume overload. Plan: Maintain Lasix 40 mg IV twice daily. Follow-up cultures. Continue to monitor renal function and urine output. Avoid nephrotoxins. Maintain Durbin catheter. Thank you for the consultation. I will continue to follow the patient with you during his hospital stay.
[2019-09-27] MEDS: SODIUM CHLORIDE 0.9% 1,000 ML IV SCH ×2 (11:55→16:42)
--- NOTE | 2019-09-27 14:51 | P.PN ---
Subjective Progress Note Date: 09/27/19 Principal diagnosis: CHF, sepsis, pneumonia Patient was seen and examined. No acute events overnight. Patient reports considerable improvement in his breathing since admission. He complains of cough productive of clear sputum. He denies any chest pain, shortness of breath or palpitations. No nausea or vomiting. No fever or chills. Objective - Vital Signs Vital signs: Vital Signs Temp 97.9 F 09/27/19 11:57 Pulse 61 09/27/19 11:57 Resp 16 09/27/19 11:57 BP 89/47 09/27/19 14:08 Pulse Ox 92 L 09/27/19 11:57 Intake & Output 09/26/19 09/27/19 09/27/19 18:59 06:59 18:59 Intake Total 2250 Output Total 2450 Balance -2450 2250 Weight 53.524 kg 53.524 kg Intake: IV 2250 Azithromycin 500 mg In 250 Sodium Chloride 0.9% 250 ml @ 250 mls/hr IVPB DAILY@1800 [facility] Rx#: [id number] Invasive Line 2 1000 Sodium Chloride 0.9% 500 1000 ml 500 ml @ 999 mls/hr IV .Q31M ONE Rx#:[id number] Output: Urine 2450 Other: Voiding Method Indwelling Catheter Indwelling Catheter - Exam General: [non toxic], [no distress], [appears at stated age] Derm: [warm], [dry] Head: [atraumatic], [normocephalic], [symmetric] Eyes: [EOMI], [no lid lag], [anicteric sclera] Mouth: [no lip lesion], [mucus membranes moist] Cardiovascular: [S1S2 reg], [no murmur], [positive DP pulse bilateral], Lungs: [CTA bilateral], [no rhonchi, no rales] , [no accessory muscle use] Abdominal: [soft], [ nontender to palpation], [no guarding], [no appreciable organomegaly] Ext: [no gross muscle atrophy], [no edema], [no contractures] Neuro: [no focal neuro deficits] Psych: [Alert], [oriented], [appropriate affect] - Labs CBC & Chem 7: 09/27/19 05:46 09/27/19 05:46 Labs: Abnormal Lab Results - Last 24 Hours (Table) 09/26/19 09/26/19 09/26/19 Range/Units 15:29 15:29 15:29 WBC 16.1 H (3.8-10.6) k/uL RBC 3.53 L (4.30-5.90) m/uL Hgb 10.6 L (13.0-17.5) gm/dL Hct 32.5 L (39.0-53.0) % Plt Count (150-450) k/uL Neutrophils # 14.2 H (1.3-7.7) k/uL Lymphocytes # 0.8 L (1.0-4.8) k/uL INR (<1.2) D-Dimer (<0.60) mg/L FEU Potassium 5.2 H (3.5-5.1) mmol/L BUN 53 H (9-20) mg/dL Creatinine 1.78 H (0.66-1.25) mg/dL Glucose 112 H (74-99) mg/dL Plasma Lactic Acid Srinivas 3.1 H* (0.7-2.0) mmol/L Total Bilirubin 1.4 H (0.2-1.3) mg/dL Troponin I (0.000-0.034) ng/mL Total Protein (6.3-8.2) g/dL Albumin (3.5-5.0) g/dL Procalcitonin (0.02-0.09) ng/mL TSH (0.465-4.680) mIU/L Urine Protein (Negative) Urine Blood (Negative) Ur Leukocyte Esterase (Negative) Urine RBC (0-5) /hpf Urine WBC (0-5) /hpf Urine WBC Clumps (None) /hpf Amorphous Sediment (None) /hpf Urine Bacteria (None) /hpf Urine Mucus (None) /hpf 09/26/19 09/26/19 09/26/19 Range/Units 15:29 15:29 15:29 WBC (3.8-10.6) k/uL RBC (4.30-5.90) m/uL Hgb (13.0-17.5) gm/dL Hct (39.0-53.0) % Plt Count (150-450) k/uL Neutrophils # (1.3-7.7) k/uL Lymphocytes # (1.0-4.8) k/uL INR 1.2 H (<1.2) D-Dimer 1.58 H (<0.60) mg/L FEU Potassium (3.5-5.1) mmol/L BUN (9-20) mg/dL Creatinine (0.66-1.25) mg/dL Glucose (74-99) mg/dL Plasma Lactic Acid Srinivas (0.7-2.0) mmol/L Total Bilirubin (0.2-1.3) mg/dL Troponin I 0.073 H* (0.000-0.034) ng/mL Total Protein (6.3-8.2) g/dL Albumin (3.5-5.0) g/dL Procalcitonin (0.02-0.09) ng/mL TSH (0.465-4.680) mIU/L Urine Protein (Negative) Urine Blood (Negative) Ur Leukocyte Esterase (Negative) Urine RBC (0-5) /hpf Urine WBC (0-5) /hpf Urine WBC Clumps (None) /hpf Amorphous Sediment (None) /hpf Urine Bacteria (None) /hpf Urine Mucus (None) /hpf 09/26/19 09/26/19 09/26/19 Range/Units 15:29 17:11 19:51 WBC (3.8-10.6) k/uL RBC (4.30-5.90) m/uL Hgb (13.0-17.5) gm/dL Hct (39.0-53.0) % Plt Count (150-450) k/uL Neutrophils # (1.3-7.7) k/uL Lymphocytes # (1.0-4.8) k/uL INR (<1.2) D-Dimer (<0.60) mg/L FEU Potassium (3.5-5.1) mmol/L BUN (9-20) mg/dL Creatinine (0.66-1.25) mg/dL Glucose (74-99) mg/dL Plasma Lactic Acid Srinivas 5.3 H* (0.7-2.0) mmol/L Total Bilirubin (0.2-1.3) mg/dL Troponin I (0.000-0.034) ng/mL Total Protein (6.3-8.2) g/dL Albumin (3.5-5.0) g/dL Procalcitonin 0.45 H (0.02-0.09) ng/mL TSH (0.465-4.680) mIU/L Urine Protein 2+ H (Negative) Urine Blood Large H (Negative) Ur Leukocyte Esterase Large H (Negative) Urine RBC >182 H (0-5) /hpf Urine WBC >182 H (0-5) /hpf Urine WBC Clumps Many H (None) /hpf Amorphous Sediment Rare H (None) /hpf Urine Bacteria Few H (None) /hpf Urine Mucus Many H (None) /hpf 09/27/19 09/27/19 09/27/19 Range/Units 05:46 05:46 09:14 WBC 11.3 H (3.8-10.6) k/uL RBC 3.36 L (4.30-5.90) m/uL Hgb 9.9 L (13.0-17.5) gm/dL Hct 30.9 L (39.0-53.0) % Plt Count 144 L (150-450) k/uL Neutrophils # 9.4 H (1.3-7.7) k/uL Lymphocytes # (1.0-4.8) k/uL INR (<1.2) D-Dimer (<0.60) mg/L FEU Potassium (3.5-5.1) mmol/L BUN 49 H (9-20) mg/dL Creatinine 1.63 H (0.66-1.25) mg/dL Glucose (74-99) mg/dL Plasma Lactic Acid Srinivas 2.1 H* (0.7-2.0) mmol/L Total Bilirubin (0.2-1.3) mg/dL Troponin I (0.000-0.034) ng/mL Total Protein 6.0 L (6.3-8.2) g/dL Albumin 2.9 L (3.5-5.0) g/dL Procalcitonin (0.02-0.09) ng/mL TSH 7.580 H (0.465-4.680) mIU/L Urine Protein (Negative) Urine Blood (Negative) Ur Leukocyte Esterase (Negative) Urine RBC (0-5) /hpf Urine WBC (0-5) /hpf Urine WBC Clumps (None) /hpf Amorphous Sediment (None) /hpf Urine Bacteria (None) /hpf Urine Mucus (None) /hpf Microbiology - Last 24 Hours (Table) 09/26/19 17:11 Urine Culture - Preliminary Urine,Voided Assessment and Plan Assessment: Acute on chronic systolic CHF exacerbation with pacemaker Sepsis and cardiogenic shock with elevated lactic acid and hypotension possibly related to CHF and community-acquired pneumonia Elevated troponin with history of CAD post CABG Acute kidney injury Elevated TSH Elevated d-dimer Chest x-ray showing signs of fluid overload. BNP 20,000. Echocardiogram May 2019 shows EF 20-25% with global hypokinesis. Plans: Given doses of Lasix in the ED. Will discontinue for now due to hypotension. Repeat chest x- ray tomorrow morning. Strict intake and output take. Daily weights. Potassium greater than 4 and magnesium greater than 2. Follow cardiology consultation. Patient with leukocytosis of 16.1. Hypotensive not responding to fluids. Pro- calcitonin elevated at 0.45. Chest x-ray shows concerns possible pneumonia. Influenza negative. UA showing large leukocyte esterase. Lactic acid 2.1- within normal limits. Plans: Follow urine culture. Follow blood culture. Continue Rocephin and azithromycin for concerns of community-acquired pneumonia. Cautious hydration with normal saline at 100 mL per hour. Maintain MAP greater than 65. Follow sputum culture. Low threshold for ICU admission. Follow pulmonology consultation. Troponin 0.073. Echocardiogram from May 2019 as above. Plans: Trend troponin due to rule out ACS. Continue aspirin and pravastatin. Hold beta lazarus due to hypotension. Follow-up echocardiogram. Telemetry monitoring. Creatinine 1.78 -1.6. Likely prerenal from dehydration. Also hypotension and possible sepsis. Could also have cardiorenal. Plans: Hold AVTAR inhibitor due to kidney injury. IVF as above. Avoid nephrotoxins. Repeat BMP tomorrow morning. TSH 7.58, free T4 within normal limits. Patient with acute illness. Plans: Repeat TSH and free T4 in 6 weeks. D-dimer elevated. VQ scan negative. Plans: Continue to monitor. No further workup. [Patient admitted for CHF exacerbation. Meets sepsis criteria with elevated lactic acid and hypotension. Currently receiving fluids, Lasix discontinued for now. He is pending clinical improvement. Low threshold for ICU. ]
[2019-09-27] MEDS ORDERED: WARFARIN 2 MG TAB PO ONE ×2 (18:00)
[2019-09-27] MEDS ORDERED: AZITHROMYCIN 500 MG in SODIUM CHLORIDE 0.9% 250 ML IVPB SCH (18:00)
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
[2019-09-27] MEDS: ASPIRIN 81 MG PO SCH (20:34)
[2019-09-27] MEDS: CHOLECALCIFEROL 1,000 UNIT TAB PO SCH (20:34)
[2019-09-27] MEDS: PRAVASTATIN SODIUM 40 MG TAB PO SCH (20:34)
[2019-09-28 06:53] LABS: Basophils % (A) 0 %; Eosinophils # (A) 0.1 k/uL (0-0.7); Eosinophils % (A) 1 %; HCT 33.9 % (39.0-53.0); HGB 10.5 gm/dL (13.0-17.5); Hypochromasia Slight; Lymphocytes # (A) 0.7 k/uL (1.0-4.8); Lymphocytes % (A) 7 %; MCH 28.9 pg (25.0-35.0); MCV 93.3 fL (80.0-100.0); Mean Platelet Volume 8.5; Monocytes # (A) 0.6 k/uL (0-1.0); Monocytes % (A) 6 %; Neutrophils # (A) 7.8 k/uL (1.3-7.7); Neutrophils % (A) 84 %; Platelet Count 166 k/uL (150-450); RBC 3.64 m/uL (4.30-5.90); RDW 14.8 % (11.5-15.5); WBC 9.3 k/uL (3.8-10.6)
[2019-09-28 07:08] LABS: INR 1.2 (<1.2); Prothrombin Time 11.8 sec (9.0-12.0)
[2019-09-28 07:23] LABS: Albumin 2.8 g/dL (3.5-5.0); Calcium 8.2 mg/dL (8.4-10.2); Potassium 4.4 mmol/L (3.5-5.1); Total Bilirubin 0.8 mg/dL (0.2-1.3); Total Protein 6.1 g/dL (6.3-8.2)
[2019-09-28] MEDS: FERROUS SULFATE 325 MG TAB PO SCH (09:02)
[2019-09-28] MEDS: CEFDINIR 300 MG CAP PO SCH (09:02)
[2019-09-28] MEDS: DOCUSATE 100 MG CAP PO SCH (09:02)
[2019-09-28] MEDS: SODIUM CHLORIDE 0.9% 1,000 ML IV SCH (09:03)
--- NOTE | 2019-09-28 09:49 | P.PN ---
Subjective Progress Note Date: 09/28/19 Principal diagnosis: follow up for acute CHF exacerbation , SOB, urinary retention and hematuria patient seen and examined today he walked to the bathroom with help, no reported SOB denies fevers or chills. has reddy cath in place poor PO intake some lower abd discomfort denies any chest pain or trouble breathing at this time Objective - Vital Signs Vital signs: Vital Signs Temp 98.4 F 09/28/19 04:00 Pulse 64 09/28/19 04:00 Resp 20 09/28/19 04:00 BP 108/60 09/28/19 04:00 Pulse Ox 96 09/28/19 04:00 Intake & Output 09/27/19 09/28/19 09/28/19 18:59 06:59 18:59 Intake Total 2870 120 240 Output Total 1050 Balance 2870 -930 240 Weight 55.7 kg Intake: IV 2750 Azithromycin 500 mg In 250 Sodium Chloride 0.9% 250 ml @ 250 mls/hr IVPB DAILY@1800 [facility] Rx#: [id number] Invasive Line 2 1500 Sodium Chloride 0.9% 500 1000 ml 500 ml @ 999 mls/hr IV .Q31M ONE Rx#:[id number] Oral 120 120 240 Output: Urine 1050 Other: Voiding Method Indwelling Catheter Indwelling Catheter - Exam Constitutional: vital signs stable, Not in acute distress, pleasant, conversant Lungs: good breath sounds bilaterally , inspiratory rales at lung basis bilaterally , normal respiratory effort no use of accessory muscles Cardiovascular: irregular rate and rhythm, no murmurs, no gallops, no rubs, no peripheral edema, pacemaker palpable Gastrointestinal: Soft, discomfort to palpation right lower and suprapubic region , no palpable hepatosplenomegally, bowel sounds positive, no abdominal wall hernias Extremities: No digital cyanosis or clubbing, peripheral pulses palpable and equal over bilateral radial arteries and dorsalis pedis artery, no calf muscle tenderness Psych: Alert, oriented to place, person , appropriate affect, intact judgment reddy cath in place, no gross hematuria - Labs CBC & Chem 7: 09/28/19 06:06 09/28/19 06:06 Labs: Abnormal Lab Results - Last 24 Hours (Table) 09/27/19 09/27/19 09/28/19 Range/Units 09:14 18:39 00:54 RBC (4.30-5.90) m/uL Hgb (13.0-17.5) gm/dL Hct (39.0-53.0) % Neutrophils # (1.3-7.7) k/uL Lymphocytes # (1.0-4.8) k/uL INR (<1.2) BUN (9-20) mg/dL Glucose (74-99) mg/dL Plasma Lactic Acid Srinivas 2.1 H* (0.7-2.0) mmol/L Calcium (8.4-10.2) mg/dL Alkaline Phosphatase (38-126) U/L Troponin I 0.049 H* 0.051 H* (0.000-0.034) ng/mL Total Protein (6.3-8.2) g/dL Albumin (3.5-5.0) g/dL 09/28/19 09/28/19 09/28/19 Range/Units 06:06 06:06 06:06 RBC 3.64 L (4.30-5.90) m/uL Hgb 10.5 L (13.0-17.5) gm/dL Hct 33.9 L (39.0-53.0) % Neutrophils # 7.8 H (1.3-7.7) k/uL Lymphocytes # 0.7 L (1.0-4.8) k/uL INR 1.2 H (<1.2) BUN 43 H (9-20) mg/dL Glucose 102 H (74-99) mg/dL Plasma Lactic Acid Srinivas (0.7-2.0) mmol/L Calcium 8.2 L (8.4-10.2) mg/dL Alkaline Phosphatase 131 H (38-126) U/L Troponin I (0.000-0.034) ng/mL Total Protein 6.1 L (6.3-8.2) g/dL Albumin 2.8 L (3.5-5.0) g/dL Microbiology - Last 24 Hours (Table) 09/26/19 17:23 Blood Culture - Preliminary Blood No Growth after 24 hours 09/26/19 17:11 Urine Culture - Final Urine,Voided Assessment and Plan Assessment: 89-year-old male with history of chronic systolic CHF, A. fib status post ICD/pacemaker. Bladder cancer status post recent cystoscopy and biopsies were suspicious lesions September 25 Patient comes in due to shortness of breath and urinary retention was found to be in acute CHF exacerbation, possible underlying pneumonia with elevated pro calcitonin, sepsis with shock and elevated lactic acid, acute kidney injury with component of acute cardiorenal syndrome renal ultrasound was negative for hydronephrosis. Reddy catheter was inserted for hematuria Coumadin on hold per urology recommendations biopsy results showed no residual cancer. Renal function started improving after diuresing breathing started to improve. Currently patient on gentle IV fluid hydration with close monitoring of fluid status. Blood cultures and urine cultures both negative Hemoglobin stable Leukocytosis resolved Plan: acute on chronic systolic CHF exacerbation with LVEF 20-25% (05/2019) s/p pacemaker, with hypotension , improving s/p IV diuresis , for pulmonary vascular congestion 2/2 CHF, daily weights, strict I/Os Continue aspirin and pravastatin. now gentle IVF hydration sepsis with cardiogenic shock 2/2 Community acquired pneumonia (flu negative) on azithro and omnicef leukocytosis improving , no fevers elevated procalcitonin influenza negative lactic acid normalized urine and blood culture both negative acute kidney injury 2/2 ATN with component of cardiorenal syndrome creatinine improving non oliguric ACEi on hold Hematuria 2/2 recent bladder biopsies (no residual cancer) improving , coumadin on hold, history of bladder cancer, urine culture no growth keep reddy in per urology until follow up on 10/04/2019, due to urinary retention and hematuria hemoglobin stable now subclinical hypothyroid, with normal free T4, could be elevation due to acute phase reactant , consider follow up TSH within 6 weeks moderate protein calorie malnutrition, encourage PO intake, add ensure D-dimer elevated. VQ scan negative. DVT PPX SCD, coumadin on hold per urology due to hematuria , resume 09/30 blood pressure continues to be borderline low normal , resume BP meds with hold parameters follow up renal function in AM encourage ambulation , PT evaluation continue to be inpatient , at cardiac unit anticipate discharge , Saturday 09/30
[2019-09-28] MEDS ORDERED: ATENOLOL 25 MG TAB PO SCH (10:00)
[2019-09-28 11:49] VITALS: BMI 16.6
--- NOTE | 2019-09-28 12:38 | P.PN ---
Subjective Progress Note Date: 09/28/19 Seen and examined for the follow-up of acute kidney injury. Feeling better today. Objective - Vital Signs Vital signs: Vital Signs Temp 97.5 F L 09/28/19 08:45 Pulse 56 L 09/28/19 08:45 Resp 18 09/28/19 08:45 BP 108/54 09/28/19 08:45 Pulse Ox 98 09/28/19 08:45 Intake & Output 09/27/19 09/28/19 09/28/19 18:59 06:59 18:59 Intake Total 2870 120 240 Output Total 1050 Balance 2870 -930 240 Weight 55.7 kg 55.7 kg Intake: IV 2750 Azithromycin 500 mg In 250 Sodium Chloride 0.9% 250 ml @ 250 mls/hr IVPB DAILY@1800 [facility] Rx#: [id number] Invasive Line 2 1500 Sodium Chloride 0.9% 500 1000 ml 500 ml @ 999 mls/hr IV .Q31M ONE Rx#:[id number] Oral 120 120 240 Output: Urine 1050 Other: Voiding Method Indwelling Catheter Indwelling Catheter Indwelling Catheter - Exam No acute distress S1-S2 heard Lungs clear No edema - Labs CBC & Chem 7: 09/28/19 06:06 09/28/19 06:06 Labs: Abnormal Lab Results - Last 24 Hours (Table) 09/27/19 09/28/19 09/28/19 Range/Units 18:39 00:54 06:06 RBC (4.30-5.90) m/uL Hgb (13.0-17.5) gm/dL Hct (39.0-53.0) % Neutrophils # (1.3-7.7) k/uL Lymphocytes # (1.0-4.8) k/uL INR 1.2 H (<1.2) BUN (9-20) mg/dL Glucose (74-99) mg/dL Calcium (8.4-10.2) mg/dL Alkaline Phosphatase (38-126) U/L Troponin I 0.049 H* 0.051 H* (0.000-0.034) ng/mL Total Protein (6.3-8.2) g/dL Albumin (3.5-5.0) g/dL 09/28/19 09/28/19 Range/Units 06:06 06:06 RBC 3.64 L (4.30-5.90) m/uL Hgb 10.5 L (13.0-17.5) gm/dL Hct 33.9 L (39.0-53.0) % Neutrophils # 7.8 H (1.3-7.7) k/uL Lymphocytes # 0.7 L (1.0-4.8) k/uL INR (<1.2) BUN 43 H (9-20) mg/dL Glucose 102 H (74-99) mg/dL Calcium 8.2 L (8.4-10.2) mg/dL Alkaline Phosphatase 131 H (38-126) U/L Troponin I (0.000-0.034) ng/mL Total Protein 6.1 L (6.3-8.2) g/dL Albumin 2.8 L (3.5-5.0) g/dL Microbiology - Last 24 Hours (Table) 09/26/19 17:23 Blood Culture - Preliminary Blood No Growth after 24 hours 09/26/19 17:11 Urine Culture - Final Urine,Voided Assessment and Plan Assessment: #1 JORDON secondary to prerenal process. Creatinine improving. #2 BladderScan's status post cystoscopy #3 CHF with systolic dysfunction EF 20-25% #4 pyuria on antibiotics #5 urinary retention has Durbin catheter #6 hypotension Plan: #1 creatinine improving. Stop IV fluids #2 hold onto AVTAR inhibitor's at this time because of low normal blood pressures. #3 labs in the morning.
[2019-09-28] MEDS ORDERED: SODIUM CHLORIDE 0.9% 1,000 ML IV SCH (12:45)
--- NOTE | 2019-09-28 14:54 | CONS ---
CONSULTATION PULMONARY/CRITICAL CARE CONSULTATION: DATE OF SERVICE: 09/28/2019 This is an 89-year-old male who has a history of bladder cancer, status post recent procedure done by Dr. Wilkerson, previous bypass grafting, cardiomyopathy, congestive heart failure, atrial fibrillation, status post pacemaker/AICD placement, who presented to the emergency department with inability to urinate. He also complained of generalized pain and weakness as well as difficulty in breathing. He apparently complained of being short of breath and weak all over. He denied any fever or chills. No cough. No phlegm production. No chest pain or chest tightness. It notes in the ER marquise that he complained of cough, but he did not mention that to me. I asked him specifically. He states that he came to the hospital primarily because he could not urinate. He does have a severe cardiomyopathy. His ejection fraction of 20% to 25%. The patient denies any fever or chills. There is no chest pain or chest discomfort. There is no nausea, vomiting, diarrhea, or any genitourinary complaints other than the urinary retention. The patient denies any trauma. Anyway, since he was seen in the emergency room on September 26, feeling much better today. He is sitting at the bedside in the cardiac chair. He appears not to be in any distress. He is wearing a couple L of O2. He is able to speak in full sentences. Denies any wheezing, chest, chest tightness, or cough. . HOME MEDICATIONS: Include atenolol, pravastatin, vitamin D3, iron, warfarin, aspirin, vitamin B12, Colace, Lasix, and nitroglycerin tablets. ALLERGIES: Tylenol and Percocet. MEDICAL HISTORY: Positive for atrial fibrillation, bladder cancer, angina, heart failure with cardiomyopathy, GI bleed, myocardial infarction, DJD, pneumonia, ischemic cardiomyopathy, valvular heart disease, previous history of colon cancer status post surgery, left-sided kidney stone, intermittent hematochezia, lower GI bleed, chronic back pain, bilateral ankle fractures, and previous rib fractures. SURGICAL HISTORY: Includes bypass grafting, heart catheterization with stent, hernia repair, pacemaker insertion, prostate and bladder surgery, bilateral inguinal hernia repair, right knee incision and drainage, left elbow surgery, and EGD with colonoscopy. SOCIAL HISTORY: Positive social history positive for previous tobacco use. Has not smoked in years. Denies any alcohol or illicit drug use. FAMILY HISTORY: Positive for a father with myocardial infarction and a mother with CO as well. He also has a son with CAD and myocardial infarction. REVIEW OF SYSTEMS: CONSTITUTIONAL: Weakness. NEUROLOGIC: Negative. HEENT: Negative. CARDIOVASCULAR: Negative. PULMONARY: Shortness of breath, minimal cough although not admitted to me. GI: Negative. : Negative. RHEUMATOLOGIC: Negative. IMMUNOLOGIC: Negative. ENDOCRINOLOGIC: Negative. DERMATOLOGIC: Negative. Current vital signs are reviewed. Temperature is 97.5, heart rate 56, respiratory rate 18, blood pressure 108/64, mean 72, 2 L saturation 98%. There is no acute distress. HEENT: Examination is grossly unremarkable. Mucous membranes are moist. No oral lesions. NECK: Supple, full range of motion. No adenopathy or thyromegaly. Neck veins are flat. CARDIOVASCULAR: Examination reveals regular rhythm and rate. HEART: S1, S2 normal. Heart sounds are distant. There is a soft systolic murmur. LUNGS: Reveal bibasilar crackles. No wheezes or rhonchi. Breath sounds equal bilaterally. ABDOMEN: Soft, bowel sounds are heard. EXTREMITIES: Intact. No edema. SKIN: Without rash. NEUROLOGIC: Examination is brief but nonfocal. A Chest x-ray done on the day of admission which is 09/26 is consistent with congestive heart failure. A pulmonary perfusion study was low probability and a followup chest x-ray done on 09/27 again shows findings of congestive heart failure. Microbiology is currently negative. LABS: Reviewed. White count 9.3, hemoglobin 9.5, hematocrit 33.9, platelet count 166,000. PT, INR were 11.8 and 1.2 respectively. PTT was 22.6, D-dimer 1.58. Sodium, potassium, chloride, CO2 all normal. Anion gap is 7. BUN and creatinine were 42 and 1.19. Glucose was 102. Troponins were 0.073, 0.049, 0.051. N terminal proBNP was [id number]. Procalcitonin was 0.45. TSH was 7.580. The urine was likely positive for urinary tract infection. There was 2+ protein. There was large amount of blood. There was large positive leukocyte esterase. Urine and WBCs were both greater than 182. There were many WBC clumps and few urine bacteria. Flu studies were negative Current medications are reviewed. He is currently on aspirin, Zithromax, Omnicef, Colace, iron, Narcan, nitroglycerin, pravastatin, and warfarin. ASSESSMENT: 1. Shortness of breath, likely related primarily to heart failure/congestive heart failure in a patient with history of severe cardiomyopathy and ejection fraction of 20% to 25%. 2. Doubt serious infection in the lungs. The patient does have a urinary tract infection which is currently being treated. 3. Previous history of tobacco use. 4. History of atrial fibrillation. 5. History of bladder cancer. 6. Angina pectoris. 7. History of gastrointestinal bleed. 8. History of myocardial infarction. 9. History of osteoarthritis. 10.History of pneumonia. 11.History of prostate cancer, status post radiation. 12.History of colon cancer with previous resection. 13.History of left kidney stone. 14.Chronic back pain. 15.Previous history of rib fractures. 16.Previous history of bilateral ankle fracture. PLAN: Currently, the patient seems to be doing relatively well. His medications are appropriate. Will continue to follow. No respiratory issues at this time. His procalcitonin level is likely elevated because of his urinary tract infection. His respiratory status is stable. Will continue to follow. Prognosis is guarded. MMODL / IJN: [id number] / OSCAR
--- NOTE | 2019-09-28 15:58 | P.CRDCN ---
History of Present Illness History of present illness: This is Jany Barnes PA-C dictating a consult on this patient The patient was interviewed and examined by me as well as by Dr. Bates Case discussed with Dr. Bates and he agrees with the plan of care HPI Patient is an 89-year-old male with a past medical history significant for bladder cancer, CAD status post CABG, cardiomyopathy status post AICD, CHF, atrial fibrillation who presented with complaints of shortness of breath. He follows with Dr. EDWARD blackman. He states that on Monday he had a cystoscopy for removal of a tumor and after that he developed worsening shortness of breath and was having difficulty urinating. Upon admission his EKG showed ventricular pacing. Chest x-ray showed possible CHF versus pneumonia. Labs are significant for BUN 53, creatinine 1.78, abnormal troponins. Patient was admitted for further evaluation and has been receiving IV fluids for acute renal failure. His BUN and creatinine have improved significantly. Patient seen and examined in the chair. States he has been feeling better but remained short of breath. No chest pain. No further bleeding. He has a Durbin catheter in place. ROS: No fevers, chills or rigors, Positive for cough no nausea, vomiting or diarrhea, Positive for hematuria, none today Positive for neck pain no strokes or seizures, no skin lesions. EXAMINATION: Patient is afebrile, pulse in the 60s, respirations 18, blood pressure 121/58, oxygen saturation 96% on 2 L nasal cannula Patient seen and examined sitting up in the chair, in no acute distress Lungs with few scattered crackles at the bases Heart is regular, systolic murmur audible No lower extremity edema Minimally elevated JVD REVIEW OF LABS, ECG & MEDICAL DATA WBC 9.3, hemoglobin 10.5, platelets 166, potassium 4.4, BUN 43, creatinine 1.19 Troponin 0.051, 0.049, 0.073 IMPRESSION / ASSESSMENT: Symptoms of shortness of breath and decreased urine output likely secondary to acute kidney injury, renal function improving with fluid Acute CHF exacerbation secondary to systolic dysfunction secondary to above Abnormal troponins, likely secondary to above CAD status post CABG Cardiomyopathy status post ICD Atrial fibrillation, anticoagulation on hold secondary to recent cystoscopy PLAN: In view of his cardiomyopathy and symptoms of shortness of breath, reduce IV fluids to avoid worsening CHF exacerbation Resume Coumadin on Monday Past Medical History Past Medical History: Atrial Fibrillation, Cancer, Chest Pain / Angina, Heart Failure, GI Bleed, Myocardial Infarction ([place]), Osteoarthritis ([place]), Pneumonia, Prostate Disorder, Renal Disease Additional Past Medical History / Comment(s): Ischemic cardiomyopathy, mitral regurgitation, 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 Last Myocardial Infarction Date:: 2002 History of Any Multi-Drug Resistant Organisms: None Reported Past Surgical History: Coronary Bypass/CABG, Heart Catheterization With Stent, Hernia Repair, Orthopedic Surgery, Pacemaker, Prostate Surgery Additional Past Surgical History / Comment(s): 10/22/13 AICD, 2006 pacemaker, PCI with stents (3), 2000 CABG 3 vessel, prostate biopsies, bilateral inguinal hernia repair, R knee I&D, L elbow/L chest schrapnel injuries with skin graft to L elbow and L knee, partial colectomy, EGD/colonoscopies. Past Anesthesia/Blood Transfusion Reactions: No Reported Reaction Additional Past Anesthesia/Blood Transfusion Reaction / Comment(s): Pt has received blood before without reaction. Date of Last Stent Placement:: 2002 Type of Cardiac Device: Permanent Pacemaker, AICD Device Placement Date:: 10/22/2013 AICD/ 2006 pacer Past Psychological History: No Psychological Hx Reported Smoking Status: Former smoker Past Alcohol Use History: None Reported Past Drug Use History: None Reported - Past Family History Father Family Medical History: Myocardial Infarction ([place]) Additional Family Medical History / Comment(s): "hardened arteries". Father in his 80s of a [place]. Mother Family Medical History: Myocardial Infarction ([place]) Additional Family Medical History / Comment(s): Mother at the age of 56yrs from a [place]. Son(s) Family Medical History: Myocardial Infarction ([place]) Medications and Allergies Home Medications Medication Instructions Recorded Confirmed Type Atenolol [Tenormin] 25 mg PO BID 05/25/14 09/26/19 History Pravastatin Sodium [Pravachol] 40 mg PO HS 10/01/17 09/26/19 History Cholecalciferol [Vitamin D3 (25 1,000 unit PO HS 12/18/18 09/26/19 History Mcg = 1000 Iu)] Ferrous Sulfate [Iron (65 MG 325 mg PO DAILY 12/18/18 09/26/19 History Elemental)] Lisinopril [Zestril] 2.5 mg PO DAILY 05/17/19 09/26/19 History Warfarin [Coumadin] 2.5 mg PO DIRECTED 05/17/19 09/26/19 History Aspirin [Adult Low Dose Aspirin EC] 81 mg PO HS 09/23/19 09/26/19 History Docusate [Colace] 100 mg PO DAILY 09/23/19 09/26/19 History Furosemide [Lasix] 40 mg PO DAILY 09/23/19 09/26/19 History Nitroglycerin Sl Tabs [Nitrostat] 0.4 mg SUBLINGUAL Q5M PRN 09/23/19 09/26/19 History Isosorbide Mononitrate ER [Imdur] 30 mg PO DAILY 09/26/19 09/26/19 History Vitamin B Complex 1 cap PO DAILY 09/26/19 09/26/19 History Allergies Allergy/AdvReac Type Severity Reaction Status Date / Time acetaminophen [From Tylenol] Allergy Rash/Hives Verified 09/26/19 21:12 meperidine HCl [From Demerol] AdvReac Nausea & Verified 09/26/19 21:12 Vomiting Physical Exam Vitals: Vital Signs Temp Pulse Resp BP Pulse Ox 09/28/19 11:35 97.9 F 64 18 121/58 96 09/28/19 08:45 97.5 F L 56 L 18 108/54 98 09/28/19 04:00 98.4 F 64 20 108/60 96 09/28/19 00:00 98.6 F 50 L 18 110/66 95 09/27/19 20:00 98.1 F 71 18 104/62 95 09/27/19 16:40 98.6 F 72 20 96/62 93 L Intake and Output 09/28/19 09/28/19 09/28/19 06:59 14:59 22:59 Intake Total 120 240 Output Total 1050 300 Balance -930 240 -300 Intake: Oral 120 240 Output: Urine 1050 300 Other: Voiding Method Indwelling Catheter Indwelling Catheter Weight 55.7 kg 55.7 kg Results 09/28/19 06:06 09/28/19 06:06 Cardiac Enzymes 0109/28/19 09/28/19 Range/Units 18:39 00:54 06:06 AST 44 (17-59) U/L Troponin I 0.049 H* 0.051 H* (0.000-0.034) ng/mL Coagulation 09/28/19 Range/Units 06:06 PT 11.8 (9.0-12.0) sec CBC 09/28/19 Range/Units 06:06 WBC 9.3 (3.8-10.6) k/uL RBC 3.64 L (4.30-5.90) m/uL Hgb 10.5 L (13.0-17.5) gm/dL Hct 33.9 L (39.0-53.0) % Plt Count 166 (150-450) k/uL Comprehensive Metabolic Panel 09/28/19 Range/Units 06:06 Sodium 141 (137-145) mmol/L Potassium 4.4 (3.5-5.1) mmol/L Chloride 106 (98-107) mmol/L Carbon Dioxide 28 (22-30) mmol/L BUN 43 H (9-20) mg/dL Creatinine 1.19 (0.66-1.25) mg/dL Glucose 102 H (74-99) mg/dL Calcium 8.2 L (8.4-10.2) mg/dL AST 44 (17-59) U/L ALT 26 (4-49) U/L Alkaline Phosphatase 131 H (38-126) U/L Total Protein 6.1 L (6.3-8.2) g/dL Albumin 2.8 L (3.5-5.0) g/dL Current Medications Generic Name Dose Route Start Last Admin Trade Name Freq PRN Reason Stop Dose Admin Aspirin 81 mg 09/27/19 21:00 09/27/19 20:34 Aspirin PO 81 mg HS JUICE Administration Atenolol 12.5 mg 09/29/19 09:00 Tenormin PO DAILY JUICE Azithromycin 500 mg 09/28/19 18:00 Zithromax PO DAILY@1800 JUICE Cefdinir 300 mg 09/28/19 09:00 09/28/19 09:02 Omnicef PO 300 mg DAILY JUICE Administration Cholecalciferol 1,000 unit 09/27/19 21:00 09/27/19 20:34 Vitamin D3 (25 Mcg = 1000 Iu) PO 1,000 unit HS JUICE Administration Docusate Sodium 100 mg 09/27/19 09:00 09/28/19 09:02 Colace PO 100 mg DAILY JUICE Administration Ferrous Sulfate 325 mg 09/27/19 09:00 09/28/19 09:02 Feosol PO 325 mg DAILY JUICE Administration Sodium Chloride 1,000 mls @ 40 mls/hr 09/28/19 12:45 Saline 0.9% IV .Q24H JUICE Naloxone HCl 0.2 mg 09/26/19 18:15 Narcan IV Q2M PRN Opioid Reversal Nitroglycerin 0.4 mg 09/26/19 21:28 Nitrostat SUBLINGUAL Q5M PRN CHEST PAIN Pravastatin Sodium 40 mg 09/27/19 21:00 09/27/19 20:34 Pravachol PO 40 mg HS JUICE Administration Intake and Output 09/28/19 09/28/19 09/28/19 06:59 14:59 22:59 Intake Total 120 240 Output Total 1050 300 Balance -930 240 -300 Intake: Oral 120 240 Output: Urine 1050 300 Other: Voiding Method Indwelling Catheter Indwelling Catheter Weight 55.7 kg 55.7 kg Patient Weight 09/29/19 06:59 Weight 55.7 kg 09/28/19 06:06 09/28/19 06:06
[2019-09-28] MEDS: AZITHROMYCIN 500 MG TAB PO SCH (17:21)
[2019-09-28] MEDS: IBUPROFEN 600 MG TAB PO PRN (18:06)
[2019-09-28] MEDS: PRAVASTATIN SODIUM 40 MG TAB PO SCH (20:36)
[2019-09-28] MEDS: ASPIRIN 81 MG PO SCH (20:36)
[2019-09-28] MEDS: CHOLECALCIFEROL 1,000 UNIT TAB PO SCH (20:36)
[2019-09-29] MEDS: IBUPROFEN 600 MG TAB PO PRN ×2 (06:22→15:57)
[2019-09-29 06:47] LABS: Basophils % (A) 0 %; Eosinophils # (A) 0.1 k/uL (0-0.7); Eosinophils % (A) 0 %; HCT 33.9 % (39.0-53.0); HGB 10.3 gm/dL (13.0-17.5); Hypochromasia Moderate; Lymphocytes # (A) 0.7 k/uL (1.0-4.8); Lymphocytes % (A) 7 %; MCH 28.9 pg (25.0-35.0); MCHC 30.4 g/dL (31.0-37.0); MCV 95.1 fL (80.0-100.0); Mean Platelet Volume 8.4; Monocytes # (A) 0.6 k/uL (0-1.0); Monocytes % (A) 6 %; Neutrophils # (A) 9.7 k/uL (1.3-7.7); Neutrophils % (A) 86 %; Platelet Count 199 k/uL (150-450); RBC 3.56 m/uL (4.30-5.90); RDW 15.1 % (11.5-15.5); WBC 11.4 k/uL (3.8-10.6)
[2019-09-29 06:49] LABS: INR 1.4 (<1.2); Prothrombin Time 13.5 sec (9.0-12.0)
[2019-09-29 07:07] LABS: Calcium 8.3 mg/dL (8.4-10.2); Potassium 4.1 mmol/L (3.5-5.1)
--- NOTE | 2019-09-29 08:50 | P.PN ---
Subjective Progress Note Date: 09/29/19 Principal diagnosis: follow up for acute CHF exacerbation , SOB, urinary retention and hematuria patient seen and examined today he was able to stand up with help and using walker , however he felt generally weak, but overall improving in his opinion he reports neck pain that improves with motrin, no fevers , no neuro deficits breathing is improving overall reddy in place, no hematuria still poor PO intake, but tolerating his ensure denies fevers or chills. no abd pain today denies any chest pain or trouble breathing at this time Objective - Vital Signs Vital signs: Vital Signs Temp 98.2 F 09/29/19 04:00 Pulse 54 L 09/29/19 04:00 Resp 20 09/29/19 04:00 BP 98/55 09/29/19 04:00 Pulse Ox 96 09/29/19 00:00 Intake & Output 09/28/19 09/29/19 09/29/19 18:59 06:59 18:59 Intake Total 240 240 Output Total 300 525 Balance -60 -285 Weight 55.7 kg 56 kg Intake: Oral 240 240 Output: Urine 300 525 Other: Voiding Method Indwelling Catheter Indwelling Catheter - Exam Constitutional: vital signs stable, Not in acute distress, pleasant, conversant Lungs: good breath sounds bilaterally , inspiratory rales at lung basis bilaterally , normal respiratory effort no use of accessory muscles Cardiovascular: irregular rate and rhythm, no murmurs, no gallops, no rubs, no peripheral edema, pacemaker palpable Gastrointestinal: Soft, no tenderness to palpation bowel sounds positive Extremities: No digital cyanosis or clubbing, peripheral pulses palpable and equal over bilateral radial arteries and dorsalis pedis artery, no calf muscle tenderness Psych: Alert, oriented to place, person , appropriate affect, intact judgment reddy cath in place, no gross hematuria - Labs CBC & Chem 7: 09/29/19 05:46 09/29/19 05:46 Labs: Abnormal Lab Results - Last 24 Hours (Table) 09/29/19 09/29/19 09/29/19 Range/Units 05:46 05:46 05:46 WBC 11.4 H (3.8-10.6) k/uL RBC 3.56 L (4.30-5.90) m/uL Hgb 10.3 L (13.0-17.5) gm/dL Hct 33.9 L (39.0-53.0) % MCHC 30.4 L (31.0-37.0) g/dL Neutrophils # 9.7 H (1.3-7.7) k/uL Lymphocytes # 0.7 L (1.0-4.8) k/uL PT 13.5 H (9.0-12.0) sec INR 1.4 H (<1.2) BUN 41 H (9-20) mg/dL Glucose 106 H (74-99) mg/dL Calcium 8.3 L (8.4-10.2) mg/dL Microbiology - Last 24 Hours (Table) 09/28/19 09:08 Gram Stain - Preliminary Sputum Sputum Culture - Preliminary 09/26/19 17:23 Blood Culture - Preliminary Blood No Growth after 48 hours Assessment and Plan Assessment: 89-year-old male with history of chronic systolic CHF, A. fib status post ICD/pacemaker. Bladder cancer status post recent cystoscopy and biopsies were suspicious lesions September 25 Patient comes in due to shortness of breath and urinary retention was found to be in acute CHF exacerbation, possible underlying pneumonia with elevated pro calcitonin, sepsis with shock and elevated lactic acid, acute kidney injury with component of acute cardiorenal syndrome renal ultrasound was negative for hydronephrosis. Reddy catheter was inserted for hematuria Coumadin on hold per urology recommendations biopsy results showed no residual cancer. Renal function started improving after diuresing breathing started to improve. Currently patient on gentle IV fluid hydration with close monitoring of fluid status. Blood cultures and urine cultures both negative Hemoglobin stable Leukocytosis resolved 09/29 patient continues to do better, fluid decreased yesterday as renal function continues to improve plan for discharge 09/30 add incentive spirometry and encourage ambulation today in preperation for discharge tomorrow to home with home care patient will be discharged with reddy in place Plan: acute on chronic systolic CHF exacerbation with LVEF 20-25% (05/2019) s/p AICD, with hypotension , improving history of CAD s/p CABAG s/p IV diuresis , for pulmonary vascular congestion 2/2 CHF, daily weights, strict I/Os Continue aspirin and pravastatin. now gentle IVF hydration , decreased to 40 ml per hour PO fluid restriction to 1500 hypotension (with history of hypertension ) continue to hold BP meds (lisinopril and Imdur) Atenolol with hold parameters sepsis with cardiogenic shock 2/2 Community acquired pneumonia (flu negative) urine and blood culture both negative on azithro and omnicef (to finish a 5 day course) no fevers elevated procalcitonin influenza negative lactic acid normalized acute kidney injury 2/2 ATN with component of cardiorenal syndrome, resolved creatinine improving non oliguric ACEi on hold Hematuria 2/2 recent bladder biopsies (no residual cancer) improving , coumadin on hold, history of bladder cancer, urine culture no growth keep reddy in per urology until follow up on 10/04/2019, due to urinary retention and hematuria hemoglobin stable now Chronic anemia currently hemoglobin stable subclinical hypothyroid, with normal free T4, could be elevation due to acute phase reactant , consider follow up TSH within 6 weeks moderate protein calorie malnutrition, encourage PO intake, add ensure D-dimer elevated. VQ scan negative. DVT PPX heparin sc tid coumadin on hold per urology due to hematuria , resume 09/30 follow up renal function in AM encourage ambulation , PT encourage sitting on chair IS anticipate discharge , Saturday 09/30, with reddy cath in place. will need home health care
[2019-09-29] MEDS: DOCUSATE 100 MG CAP PO SCH (08:55)
[2019-09-29] MEDS: CEFDINIR 300 MG CAP PO SCH (08:55)
[2019-09-29] MEDS: FERROUS SULFATE 325 MG TAB PO SCH (08:55)
[2019-09-29] MEDS: ATENOLOL 12.5 MG TAB PO SCH (08:55)
[2019-09-29] MEDS ORDERED: LISINOPRIL 2.5 MG TAB PO SCH (09:00)
--- NOTE | 2019-09-29 09:32 | P.PN ---
Progress Note - Text Progress Note Date: 09/29/19 The patient is afebrile and normotensive. He denies any shortness of breath and says that he feels much better than when he was admitted. Urine draining from his Durbin catheter is clear. His path report shows areas of denuded mucosa but no residual cancer and I discussed this with him. He can resume his Coumadin and should keep his appointment with Dr. Wilkerson later this week. His catheter will be removed at that time.
--- NOTE | 2019-09-29 11:52 | P.PN ---
Subjective Progress Note Date: 09/29/19 Seen and examined for the follow-up of acute kidney injury. Feeling better today. Objective - Vital Signs Vital signs: Vital Signs Temp 97.7 F 09/29/19 08:35 Pulse 81 09/29/19 08:35 Resp 18 09/29/19 08:35 BP 120/55 09/29/19 08:35 Pulse Ox 92 L 09/29/19 08:35 Intake & Output 09/28/19 09/29/19 09/29/19 18:59 06:59 18:59 Intake Total 240 240 400 Output Total 300 525 Balance -60 -285 400 Weight 55.7 kg 56 kg Intake: Intake, IV Titration 80 Amount Sodium Chloride 0.9% 1, 80 000 ml @ 40 mls/hr IV . [facility] Rx#:[id number] Oral 240 240 320 Output: Urine 300 525 Other: Voiding Method Indwelling Catheter Indwelling Catheter Indwelling Catheter - Exam No acute distress S1-S2 heard Lungs clear No edema - Labs CBC & Chem 7: 09/29/19 05:46 09/29/19 05:46 Labs: Abnormal Lab Results - Last 24 Hours (Table) 09/29/19 09/29/19 09/29/19 Range/Units 05:46 05:46 05:46 WBC 11.4 H (3.8-10.6) k/uL RBC 3.56 L (4.30-5.90) m/uL Hgb 10.3 L (13.0-17.5) gm/dL Hct 33.9 L (39.0-53.0) % MCHC 30.4 L (31.0-37.0) g/dL Neutrophils # 9.7 H (1.3-7.7) k/uL Lymphocytes # 0.7 L (1.0-4.8) k/uL PT 13.5 H (9.0-12.0) sec INR 1.4 H (<1.2) BUN 41 H (9-20) mg/dL Glucose 106 H (74-99) mg/dL Calcium 8.3 L (8.4-10.2) mg/dL Microbiology - Last 24 Hours (Table) 09/28/19 09:08 Gram Stain - Preliminary Sputum Sputum Culture - Preliminary 09/26/19 17:23 Blood Culture - Preliminary Blood No Growth after 48 hours Assessment and Plan Assessment: #1 JORDON secondary to prerenal process. Creatinine improving. #2 Bladder cancer status post cystoscopy #3 CHF with systolic dysfunction EF 20-25% #4 pyuria on antibiotics #5 urinary retention has Durbin catheter #6 hypotension Plan: #1 creatinine improving and stable #2 hold onto AVTAR inhibitor's at this time because of low normal blood pressures. #3 labs in the morning.
--- NOTE | 2019-09-29 12:17 | P.PN ---
Subjective Progress Note Date: 09/29/19 Principal diagnosis: Acute exacerbation of chronic systolic congestive heart failure The patient is seen today 09/29/2019 in follow-up on the selective care unit. He does have a history of coronary artery disease with previous coronary artery bypass grafting, ischemic cardiomyopathy with ejection fraction 20-25%, atrial fibrillation, status post AICD placement, history of bladder cancer with recent procedure by Dr. Plummer. He presented here with increasing shortness of breath generalized weakness. He is currently sitting up in a chair at the bedside. Awake and alert in no acute distress. Breathing a bit easier today compared to yesterday. Maintaining O2 saturations in the low 90s on 4 L/m per nasal cannula. She's afebrile. Heart rate well controlled. Blood pressure stable. Blood culture reveals no growth. Sputum culture pending. Urine culture shows no growth. White count 11.4. Hemoglobin 10.3. INR 1.4. Sodium 141. Potassium 4.1. Creatinine 1.03. He is currently on Omnicef and azithromycin. Objective - Vital Signs Vital signs: Vital Signs Temp 97.7 F 09/29/19 08:35 Pulse 81 09/29/19 08:35 Resp 18 09/29/19 08:35 BP 120/55 09/29/19 08:35 Pulse Ox 92 L 09/29/19 08:35 Intake & Output 09/28/19 09/29/19 09/29/19 18:59 06:59 18:59 Intake Total 240 240 400 Output Total 300 525 Balance -60 -285 400 Weight 55.7 kg 56 kg Intake: Intake, IV Titration 80 Amount Sodium Chloride 0.9% 1, 80 000 ml @ 40 mls/hr IV . Q24H [facility] Rx#:[id number] Oral 240 240 320 Output: Urine 300 525 Other: Voiding Method Indwelling Catheter Indwelling Catheter Indwelling Catheter - Exam GENERAL EXAM: Alert, pleasant 89-year-old gentleman, hard of hearing, on 4 L nasal cannula comfortable in no apparent distress. HEAD: Normocephalic. EYES: Normal reaction of pupils, equal size. NOSE: Clear with pink turbinates. THROAT: No erythema or exudates. NECK: No masses, no JVD. CHEST: No chest wall deformity. LUNGS: Equal air entry with crackles in the posterior bases. CVS: S1 and S2 normal with no audible murmur, regular rhythm. ABDOMEN: No hepatosplenomegaly, normal bowel sounds, no guarding or rigidity. SPINE: No scoliosis or deformity SKIN: No rashes CENTRAL NERVOUS SYSTEM: No focal deficits, tone is normal in all 4 extremities. EXTREMITIES: There is no peripheral edema. No clubbing, no cyanosis. Peripheral pulses are intact. - Labs CBC & Chem 7: 09/29/19 05:46 09/29/19 05:46 Labs: Abnormal Lab Results - Last 24 Hours (Table) 09/29/19 09/29/19 09/29/19 Range/Units 05:46 05:46 05:46 WBC 11.4 H (3.8-10.6) k/uL RBC 3.56 L (4.30-5.90) m/uL Hgb 10.3 L (13.0-17.5) gm/dL Hct 33.9 L (39.0-53.0) % MCHC 30.4 L (31.0-37.0) g/dL Neutrophils # 9.7 H (1.3-7.7) k/uL Lymphocytes # 0.7 L (1.0-4.8) k/uL PT 13.5 H (9.0-12.0) sec INR 1.4 H (<1.2) BUN 41 H (9-20) mg/dL Glucose 106 H (74-99) mg/dL Calcium 8.3 L (8.4-10.2) mg/dL Microbiology - Last 24 Hours (Table) 09/28/19 09:08 Gram Stain - Preliminary Sputum Sputum Culture - Preliminary 09/26/19 17:23 Blood Culture - Preliminary Blood No Growth after 48 hours Assessment and Plan Assessment: 1 Acute exacerbation of chronic systolic congestive heart failure 2 Ischemic cardiomyopathy with ejection fraction 20-25% 3 Status post AICD placement 4 Coronary artery disease with previous coronary artery bypass grafting 5 Previous history of tobacco dependence 6 Atrial fibrillation 7 History of GI bleed 8 Prostate cancer status post radiation 9 History of nephrolithiasis 10 Chronic back pain 11 Hard of hearing Plan: The patient was seen and evaluated by Dr. Juarez. He is improved today compared to yesterday. The patient does remain on empiric antibiotics in the form of Omnicef and azithromycin. Sputum culture is pending. We will continue to follow. I, the cosigning physician, performed a history & physical examination of the pa epi. Lungs sounds with crackles in the bilateral posterior bases Maintaining good O2 saturations in the 90s on 4 L/m per nasal cannula. I discussed the assessment and plan of care with my nurse practitioner, Luz Galicia. I attest to the above note as dictated by her.
--- NOTE | 2019-09-29 13:59 | ECHOF ---
Referral Reason:CHF MEASUREMENTS -------- HEIGHT: 182.9 cm WEIGHT: 49.9 kg BP: 100/57 RVIDd: 2.8 cm (< 3.3) IVSd: 1.0 cm (0.6 - 1.1) LVIDd: 5.0 cm (3.9 - 5.3) LVPWd: 1.2 cm (0.6 - 1.1) IVSs: 1.3 cm LVIDs: 4.2 cm LVPWs: 1.5 cm LA Diam: 5.2 cm (2.7 - 3.8) LAESV Index (A-L): 62.72 ml/m Ao Diam: 3.3 cm (2.0 - 3.7) AV Cusp: 1.3 cm (1.5 - 2.6) LA Diam: 5.0 cm (2.7 - 3.8) MV EXCURSION: 15.488 mm (> 18.000) MV EF SLOPE: 86 mm/s (70 - 150) EPSS: 2.6 cm MV E Zafar: 0.90 m/s MV DecT: 150 ms MV A Zafar: 0.37 m/s MV E/A Ratio: 2.45 AR PHT: 773 ms RAP: 15.00 mmHg RVSP: 79.62 mmHg FINDINGS -------- Paced rhythm. This was a technically good study. The left ventricular size is normal. Left ventricular wall thickness is normal. There is severe g lobal hypokinesis of LV . Overall left ventricular systolic function is moderate-severely impaired with, an EF between 30 - 35 %. The right ventricle is normal in size. The left atrium is markedly dilated. LA is severely dilated >40 ml/m2 The right atrial size is normal. There is mild aortic valve sclerosis. There is mild aortic regurgitation. The mitral valve leaflets are mildly thickened. Mild mitral annular calcification present. Severe mitral regurgitation is present. Severe tricuspid regurgitation present. There is severe pulmonary hypertension. The right ventric ular systolic pressure, as measured by Doppler, is 79.62mmHg. There is no pulmonic regurgitation present. The aortic root size is normal. There is no pericardial effusion. CONCLUSIONS -------- 1. Paced rhythm. 2. This was a technically good study. 3. The left ventricular size is normal. 4. Left ventricular wall thickness is normal. 5. There is severe global hypokinesis of LV . 6. The right ventricle is normal in size. 7. The left atrium is markedly dilated. 8. LA is severely dilated >40 ml/m2 9. The right atrial size is normal. 10. There is mild aortic valve sclerosis. 11. There is mild aortic regurgitation. 12. The mitral valve leaflets are mildly thickened. 13. Mild mitral annular calcification present. 14. Severe mitral regurgitation is present. 15. Severe tricuspid regurgitation present. 16. There is severe pulmonary hypertension. 17. The right ventricular systolic pressure, as measured by Doppler, is 79.62mmHg. 18. There is no pulmonic regurgitation present. 19. The aortic root size is normal. 20. There is no pericardial effusion. [employer] OPERATOR: Kadi Escobedo RDCS
[2019-09-29] MEDS: HEPARIN SODIUM,PORCINE 5,000 UNIT/ML 1 ML VIAL SQ SCH ×2 (15:56→19:42)
--- NOTE | 2019-09-29 16:05 | P.PN ---
Subjective This is Jany Barnes PA-C dictating a progress note on this patient The patient was interviewed and examined by me as well as by Dr. Bates Case discussed with Dr. Bates and he agrees with the plan of care HPI/interval history Patient is an 89-year-old male with a past medical history significant for bladder cancer, CAD status post CABG, cardiomyopathy status post AICD, CHF, atrial fibrillation who presented with complaints of shortness of breath. He was found to be in acute renal failure and was started on IV fluids. His BUN an d creatinine have improved significantly. Patient seen and examined sitting up in the chair. States his breathing has improved but he still feels fatigued and short of breath with walking. Denies any chest pain. EXAMINATION Patient is afebrile, pulse in the 50s, respirations 18, blood pressure 110/56, oxygen saturation 98% on 4 L nasal cannula Patient seen and examined sitting in the chair, in no acute distress Bilateral breath sounds are reduced with few scattered crackles at the bases Heart is irregular, systolic murmur audible No lower extremity edema REVIEW OF LABS, ECG WBC 11.4, hemoglobin 10.3, platelets 199, potassium 4.1, BUN 41, creatinine 1.03 IMPRESSION / ASSESSMENT: Symptoms of shortness of breath and decreased urine output likely secondary to acute kidney injury, creatinine has normalized Acute CHF exacerbation secondary to systolic dysfunction secondary to above Abnormal troponins, likely secondary to above CAD status post CABG Cardiomyopathy status post ICD Atrial fibrillation, anticoagulation on hold secondary to recent cystoscopy PLAN: In view of his cardiomyopathy and symptoms of shortness of breath and normalized renal function, stop IV fluids to avoid worsening CHF exacerbation Continue aspirin, beta blockers Resume Coumadin on Monday Objective - Vital Signs Vital signs: Vital Signs Temp 97.9 F 09/29/19 11:45 Pulse 53 L 09/29/19 11:45 Resp 18 09/29/19 11:45 BP 110/56 09/29/19 11:45 Pulse Ox 98 09/29/19 11:45 Intake & Output 09/28/19 09/29/19 09/29/19 18:59 06:59 18:59 Intake Total 240 240 880 Output Total 300 525 Balance -60 -285 880 Weight 55.7 kg 56 kg Intake: Intake, IV Titration 80 Amount Sodium Chloride 0.9% 1, 80 000 ml @ 40 mls/hr IV . Q24H [facility] Rx#:[id number] Oral 240 240 800 Output: Urine 300 525 Other: Voiding Method Indwelling Catheter Indwelling Catheter Indwelling Catheter - Labs CBC & Chem 7: 09/29/19 05:46 09/29/19 05:46 Labs: Abnormal Lab Results - Last 24 Hours (Table) 09/29/19 09/29/19 09/29/19 Range/Units 05:46 05:46 05:46 WBC 11.4 H (3.8-10.6) k/uL RBC 3.56 L (4.30-5.90) m/uL Hgb 10.3 L (13.0-17.5) gm/dL Hct 33.9 L (39.0-53.0) % MCHC 30.4 L (31.0-37.0) g/dL Neutrophils # 9.7 H (1.3-7.7) k/uL Lymphocytes # 0.7 L (1.0-4.8) k/uL PT 13.5 H (9.0-12.0) sec INR 1.4 H (<1.2) BUN 41 H (9-20) mg/dL Glucose 106 H (74-99) mg/dL Calcium 8.3 L (8.4-10.2) mg/dL Microbiology - Last 24 Hours (Table) 09/28/19 09:08 Gram Stain - Preliminary Sputum Sputum Culture - Preliminary 09/26/19 17:23 Blood Culture - Preliminary Blood No Growth after 48 hours
[2019-09-29] MEDS: PRAVASTATIN SODIUM 40 MG TAB PO SCH (19:42)
[2019-09-29] MEDS: CHOLECALCIFEROL 1,000 UNIT TAB PO SCH (19:42)
[2019-09-29] MEDS: ASPIRIN 81 MG PO SCH (19:42)
[2019-09-29] MEDS: AZITHROMYCIN 500 MG TAB PO SCH (20:58)
[2019-09-30 06:45] LABS: INR 1.5 (<1.2); Prothrombin Time 14.8 sec (9.0-12.0)
[2019-09-30 06:49] LABS: Calcium 8.7 mg/dL (8.4-10.2); Potassium 4.8 mmol/L (3.5-5.1)
[2019-09-30] MEDS: IBUPROFEN 600 MG TAB PO PRN (08:28)
[2019-09-30] MEDS: ATENOLOL 12.5 MG TAB PO SCH (08:28)
[2019-09-30] MEDS: DOCUSATE 100 MG CAP PO SCH (08:28)
[2019-09-30] MEDS: FERROUS SULFATE 325 MG TAB PO SCH (08:28)
[2019-09-30] MEDS: HEPARIN SODIUM,PORCINE 5,000 UNIT/ML 1 ML VIAL SQ SCH (08:28)
[2019-09-30] MEDS: CEFDINIR 300 MG CAP PO SCH (08:29)
[2019-09-30 08:46] VITALS: TEMP 97.6
--- NOTE | 2019-09-30 11:41 | P.PN ---
Subjective Progress Note Date: 09/30/19 Patient is an 89-year-old male with a past medical history significant for bladder cancer, CAD status post CABG, cardiomyopathy status post AICD, CHF, atrial fibrillation who presented with complaints of shortness of breath. He was found to be in acute renal failure and was started on IV fluids. His BUN and creatinine have improved significantly. Patient seen and examined sitting up in the chair. States his breathing has improved , having mild hemoptysis. Blood pressure 118/60, heart rate in the 60s, 94% on room air. Pro time 14.8 with an INR of 1.5, sodium 141, potassium 4.8, BUN 38, creatinine 0.8. Objective - Vital Signs Vital signs: Vital Signs Temp 97.6 F 09/30/19 08:00 Pulse 60 09/30/19 08:00 Resp 22 09/30/19 08:00 BP 118/59 09/30/19 08:00 Pulse Ox 94 L 09/30/19 08:00 Intake & Output 09/29/19 09/30/19 09/30/19 18:59 06:59 18:59 Intake Total 1360 477 Output Total 350 750 200 Balance 1010 -750 277 Weight 54.5 kg Intake: Intake, IV Titration 80 Amount Sodium Chloride 0.9% 1, 80 000 ml @ 40 mls/hr IV . Q24H [facility] Rx#:[id number] Oral 1280 477 Output: Urine 350 750 200 Other: Voiding Method Indwelling Catheter Indwelling Catheter Indwelling Catheter - Exam Patient seen and examined sitting in the chair, in no acute distress Bilateral breath sounds are reduced with few scattered crackles at the bases Heart is irregular, systolic murmur audible No lower extremity edema - Labs CBC & Chem 7: 09/29/19 05:46 09/30/19 06:02 Labs: Abnormal Lab Results - Last 24 Hours (Table) 09/30/19 09/30/19 Range/Units 06:02 06:02 PT 14.8 H (9.0-12.0) sec INR 1.5 H (<1.2) Chloride 108 H (98-107) mmol/L BUN 38 H (9-20) mg/dL Microbiology - Last 24 Hours (Table) 09/28/19 09:08 Gram Stain - Final Sputum Sputum Culture - Final 09/26/19 17:23 Blood Culture - Preliminary Blood No Growth after 72 hours Assessment and Plan Plan: IMPRESSION / ASSESSMENT: #1Symptoms of shortness of breath and decreased urine output likely secondary to acute kidney injury, creatinine has normalized #2Acute CHF exacerbation secondary to systolic dysfunction secondary to above #3Abnormal troponins, likely secondary to above #4CAD status post CABG #5 ischemic Cardiomyopathy status post ICD #6Atrial fibrillation, persistent Plan From cardiology's perspective, we'll recommend to continue the patient on his current medication. DNP note has been reviewed, I agree with a documented findings and plan of care. Patient was seen and examined.
--- NOTE | 2019-09-30 12:31 | P.DS ---
Providers Date of admission: 09/26/19 17:54 Attending physician: Tresa Butler DO Consults: 09/26/19 18:16 Consult Physician Routine Consulting Provider: Leroy Davis Consult Reason/Comments: urinary retention s/p procedure Do you want consulting provider notified?: Yes 09/26/19 21:31 Consult Physician Routine Consulting Provider: Juwan Padilla Consult Reason/Comments: CHF Do you want consulting provider notified?: Yes 09/26/19 23:20 Consult Physician Routine Consulting Provider: Charlie Reyes Consult Reason/Comments: JORDON Do you want consulting provider notified?: Yes, Notify in am 09/27/19 14:37 Consult Physician Stat Consulting Provider: Gabe Juarez Consult Reason/Comments: CHF, COPD possible PNA, hypotension Do you want consulting provider notified?: Yes Primary care physician: Valentin Mir Hospital Course: Final diagnosis at discharge sepsis with cardiogenic shock 2/2 Community acquired pneumonia (flu negative) acute on chronic systolic CHF exacerbation with LVEF 20-25% (05/2019) s/p AICD, with hypotension , improving history of CAD s/p CABAG hypotension (with history of hypertension ) acute kidney injury 2/2 ATN with component of cardiorenal syndrome, resolved Hematuria 2/2 recent bladder biopsies Subclinical hypothyroid Chronic conditions Systolic CHF History of bladder cancer Chronic anemia Moderate protein calorie malnutrition Hospital course 89-year-old male with history of chronic systolic CHF, A. fib status post ICD/pacemaker. Bladder cancer status post recent cystoscopy and biopsies were suspicious lesions September 25 Patient comes in due to shortness of breath and urinary retention was found to be in acute CHF exacerbation, possible underlying pneumonia with elevated pro calcitonin, sepsis with shock and elevated lactic acid, acute kidney injury with component of acute cardiorenal syndrome renal ultrasound was negative for hydronephrosis. Reddy catheter was inserted for hematuria Coumadin on hold per urology recommendations biopsy results showed no residual cancer. Renal function started improving after diuresing breathing started to improve. Currently patient on gentle IV fluid hydration with close monitoring of fluid status. Blood cultures and urine cultures both negative Hemoglobin stable Leukocytosis resolved 09/29 patient continues to do better, fluid decreased yesterday as renal function continues to improve plan for discharge 09/30 add incentive spirometry and encourage ambulation today in preperation for discharge tomorrow to home with home care patient will be discharged with reddy in place Patient seen and examined on day of discharge Patient doing well denies any chest pain or trouble breathing. Urine looks normal in color. Denies any nausea vomiting or abdominal pain Constitutional: vital signs stable, Not in acute distress, pleasant, conversant Lungs: good breath sounds bilaterally , inspiratory rales at lung basis bilaterally , normal respiratory effort no use of accessory muscles Cardiovascular: irregular rate and rhythm, no murmurs, no gallops, no rubs, no peripheral edema, pacemaker palpable Gastrointestinal: Soft, no tenderness to palpation bowel sounds positive Extremities: No digital cyanosis , peripheral pulses palpable and equal , no calf muscle tenderness Psych: Alert, oriented to place, person , appropriate affect, intact judgment Discussed with patient instructions for discharge patient agreeable voice understanding Follow-up with PCP, cardiology, urology Keep Reddy catheter in place until follow-up with urology Okay to restart coumadin, dosing with your PCP to monitor your INR subclinical hypothyroid, follow up with PCP on testing blood level of TSH and free T4 (thyroid function ) in 4-6 weeks continue antibiotics as prescribed, for pneumonia home oxygen @3-4 LPM , continue to use IS 40 minutes were spent discharging this patient, and more than 50% of the time was spent in counseling the patient and family and in coordinating care. Patient Condition at Discharge: Stable Plan - Discharge Summary New Discharge Prescriptions: New Cefdinir [Omnicef] 300 mg PO DAILY #3 cap Atenolol [Tenormin] 12.5 mg PO DAILY #60 dose Azithromycin [Zithromax] 500 mg PO DAILY@1800 #1 tab Furosemide [Lasix] 40 mg PO DAILY PRN #30 tablet PRN Reason: See Comments Continue Pravastatin Sodium [Pravachol] 40 mg PO HS Ferrous Sulfate [Iron (65 MG Elemental)] 325 mg PO DAILY Cholecalciferol [Vitamin D3 (25 Mcg = 1000 Iu)] 1,000 unit PO HS Warfarin [Coumadin] 2.5 mg PO DIRECTED Aspirin [Adult Low Dose Aspirin EC] 81 mg PO HS Docusate [Colace] 100 mg PO DAILY Nitroglycerin Sl Tabs [Nitrostat] 0.4 mg SUBLINGUAL Q5M PRN PRN Reason: CP Vitamin B Complex 1 cap PO DAILY Discontinued Atenolol [Tenormin] 25 mg PO BID Lisinopril [Zestril] 2.5 mg PO DAILY Furosemide [Lasix] 40 mg PO DAILY Isosorbide Mononitrate ER [Imdur] 30 mg PO DAILY Discharge Medication List Pravastatin Sodium [Pravachol] 40 mg PO HS 10/01/17 [History] Cholecalciferol [Vitamin D3 (25 Mcg = 1000 Iu)] 1,000 unit PO HS 12/18/18 [History] Ferrous Sulfate [Iron (65 MG Elemental)] 325 mg PO DAILY 12/18/18 [History] Warfarin [Coumadin] 2.5 mg PO DIRECTED 05/17/19 [History] Aspirin [Adult Low Dose Aspirin EC] 81 mg PO HS 09/23/19 [History] Docusate [Colace] 100 mg PO DAILY 09/23/19 [History] Nitroglycerin Sl Tabs [Nitrostat] 0.4 mg SUBLINGUAL Q5M PRN 09/23/19 [History] Vitamin B Complex 1 cap PO DAILY 09/26/19 [History] Atenolol [Tenormin] 12.5 mg PO DAILY #60 dose 09/30/19 [Rx] Azithromycin [Zithromax] 500 mg PO DAILY@1800 #1 tab 09/30/19 [Rx] Cefdinir [Omnicef] 300 mg PO DAILY #3 cap 09/30/19 [Rx] Furosemide [Lasix] 40 mg PO DAILY PRN #30 tablet 09/30/19 [Rx] Follow up Appointment(s)/Referral(s): Valentin Mir MD [Primary Care Provider] - 10/04/19 2:00 pm (Monday) Patrick Silver MD [STAFF PHYSICIAN] - 10/14/19 3:00 pm (Monday with [employer]) [facility], [NON-STAFF] - Leroy Davis MD [STAFF PHYSICIAN] - 1 Week Patient Instructions/Handouts: Heart Failure (ER), Hematuria (ED) Discharge Disposition: HOME WITH HOME HEALTH SERVICES Plan of Treatment: continue coumadin, dosing with your PCP to monitor your INR subclinical hypothyroid, follow up with PCP on testing blood level of TSH and free T4 (thyroid function ) in 4-6 weeks continue antibiotics as prescribed, for pneumonia keep reddy cath until follow up with urology your heart medication were adjusted per your seed laboratory technician, (holding lisinopril and imdur) . Atenolol dose adjusted home oxygen @3-4 LPM , continue to use IS use lasix for 1-2 days , if your daily weight suddenly increases by 3 LBs, and call your PCP office
[2019-09-30 13:02] VITALS: BP 100/51; PULSE 54; RESP 18
== END 2019-09-30 15:56 | disposition home health service (06) | DRG 871 ==
LOC: EC 14:26 → 3SCARD 17:54
PROVIDERS: ADMIT Internal Medicine; ATTEND Internal Medicine
DX: A41.9 Sepsis, unspecified organism (principal); I50.23 Acute on chronic systolic (congestive) heart failure; N17.0 Acute kidney failure with tubular necrosis; J18.9 Pneumonia, unspecified organism; R57.0 Cardiogenic shock; E87.2 Acidosis; N39.0 Urinary tract infection, site not specified; I13.0 Hypertensive heart and chronic kidney disease with heart failure and stage 1 through stage 4 chronic kidney disease, or unspecified chronic kidney disease; I48.20 Chronic atrial fibrillation, unspecified; E44.0 Moderate protein-calorie malnutrition; J44.0 Chronic obstructive pulmonary disease with (acute) lower respiratory infection; R04.2 Hemoptysis; Z68.1 Body mass index [BMI] 19.9 or less, adult; Z66 Do not resuscitate; M19.90 Unspecified osteoarthritis, unspecified site; I25.5 Ischemic cardiomyopathy; I08.1 Rheumatic disorders of both mitral and tricuspid valves; I27.21 Secondary pulmonary arterial hypertension; E87.5 Hyperkalemia; R33.9 Retention of urine, unspecified; R79.89 Other specified abnormal findings of blood chemistry; I25.119 Atherosclerotic heart disease of native coronary artery with unspecified angina pectoris; E86.0 Dehydration; E02 Subclinical iodine-deficiency hypothyroidism; D64.9 Anemia, unspecified; H91.90 Unspecified hearing loss, unspecified ear; N18.9 Chronic kidney disease, unspecified; G89.29 Other chronic pain; M54.5 Low back pain; R31.0 Gross hematuria; M54.2 Cervicalgia; I25.2 Old myocardial infarction; Z88.8 Allergy status to other drugs, medicaments and biological substances; Z88.6 Allergy status to analgesic agent; Z79.82 Long term (current) use of aspirin; Z79.01 Long term (current) use of anticoagulants; Z79.899 Other long term (current) drug therapy; Z95.810 Presence of automatic (implantable) cardiac defibrillator; Z95.818 Presence of other cardiac implants and grafts; Z87.01 Personal history of pneumonia (recurrent); Z85.038 Personal history of other malignant neoplasm of large intestine; Z85.46 Personal history of malignant neoplasm of prostate; Z92.3 Personal history of irradiation; Z95.1 Presence of aortocoronary bypass graft; Z87.442 Personal history of urinary calculi; Z87.81 Personal history of (healed) traumatic fracture; Z95.5 Presence of coronary angioplasty implant and graft; Z87.19 Personal history of other diseases of the digestive system; Z90.49 Acquired absence of other specified parts of digestive tract; Z87.891 Personal history of nicotine dependence; Z98.890 Other specified postprocedural states; Z85.51 Personal history of malignant neoplasm of bladder; Z82.49 Family history of ischemic heart disease and other diseases of the circulatory system
CPT/HCPCS: 36415; 71046; 74420; 76770; 78582; 80048; 80053; 81001; 83605; 83880; 84145; 84439; 84443; 84484; 85025; 85379; 85610; 85730; 87040; 87070; 87086; 87205; 87502; 88305; 88307; 93005; 93306; 96361; 96365; 96366; 96368; 96374; 96376; 99285